=== PATIENT | female | born 1980 | race Caucasian/White ===

== ENCOUNTER 2019-08-14 11:07 | Emergency (ER) | payer BC, SELFPAY ==
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
[2019-08-14 12:46] VITALS: BP 125/78; TEMP 98; O2SAT 100
== END 2019-08-14 12:37 | disposition home or self-care (01) ==
LOC: ER 11:07
DX: S03.2XXA Dislocation of tooth, initial encounter (principal); W22.8XXA Striking against or struck by other objects, initial encounter; Y93.89 Activity, other specified; Y92.9 Unspecified place or not applicable; I10 Essential (primary) hypertension
CPT/HCPCS: 99282

== ENCOUNTER 2021-07-25 22:52 | Emergency (ER) | payer BC ==
--- OUTSIDE RECORDS SUMMARY | 2021-07-25 22:54 | XMS REPORT | Continuity of Care Document ---
:1980 [address] [facility] t Address [address] [place] [address] Care Team Providers Name Role Phone Unavailable Unavailable Unavailable Problems This patient has no known problems. Allergies, Adverse Reactions, Alerts This patient has no known allergies or adverse reactions. Medications This patient has no known medications. Procedures This patient has no known procedures. Encounters Start End Encounter Admission Attending Care Care Encounter Source Date/Time Date/Time Type Type Clinicians Facility Department ID 2020-07-04 2020-07-04 Outpatient [facility] [id number] [facility] 00:00:00 00:00:00 [facility]ra Aparicio ent Clinics Results This patient has no known results.
[2021-07-26 00:11] LABS: Absolute Lymphocytes (CBC) 0.8 K/uL (0.7-4.9); Basophils % 0.7 % (0-1.3); Hematocrit 40.1 % (36.0-45.0); Lymphocytes % 19.1 % (15.3-44.8); MPV 8.7 fL (7.6-11.3); Protime INR 0.97; RBC Red Blood Cell Count 4.86 M/uL (3.86-4.86)
[2021-07-26 00:25] LABS: ALT/SGPT 49 U/L (12-78); AST/SGOT 19 U/L (15-37); Albumin 3.8 g/dL (3.4-5.0); Alkaline Phosphatase 58 U/L (45-117); BUN Blood Urea Nitrogen 21 mg/dL (7-18); Bicarbonate 21 mmol/L (21-32); Bilirubin Direct 0.2 mg/dL (0-0.2); Bilirubin Total 0.4 mg/dL (0.2-1.0); Ferritin 53.7 ng/mL (8-388); Glucose Level 114 mg/dL (74-106); Magnesium 1.8 mg/dL (1.8-2.4); NT PRO-BNP 12 pg/mL (<125); Potassium 3.8 mmol/L (3.5-5.1); Sodium Level 136 mmol/L (136-145); Troponin (Emerg Dept Use Only) < 0.02 ng/mL (0.0-0.045)
[2021-07-26 00:26] LABS: C-Reactive Protein < 2.90 mg/L (<3.00)
[2021-07-26 00:34] LABS: Urine Blood Negative (Negative); Urine Glucose Negative (Negative); Urine Protein Trace (Negative); Urine Specific Gravity 1.025 (1.005-1.030); Urine pH 5.5 (5.0-7.0)
[2021-07-26] MEDS ORDERED: ALBUTEROL INHALER 60 PUFF/8 GM IH ONE (00:40)
[2021-07-26] MEDS ORDERED: ONDANSETRON 4 MG/2 ML VIAL ONE (00:40)
[2021-07-26 01:03] LABS: Urine Specific Gravity/Preg 1.025 (1.005-1.030)
[2021-07-26] MEDS ORDERED: METHYLPREDNISOLONE 40 MG INJ ONE (01:49)
[2021-07-26] MEDS ORDERED: ASPIRIN 81 MG CHEWABLE TABLET ONE (01:50)
[2021-07-26] MEDS ORDERED: NA CHLORIDE 0.9% 250 ML ONE (02:04)
[2021-07-26] MEDS ORDERED: CASIRIVIMAB/IMDEVIMAB 10 ML VIAL ONE (02:04)
[2021-07-26] MEDS ORDERED: NA CHLORIDE 0.9% 50 ML ONE (02:04)
--- NOTE | 2021-07-26 03:44 | ER ---
Nurse's Notes [facility] Name: Roula Conde Age: 40 yrs Sex: Female : 1980 Arrival Date: 07/25/2021 Time: 22:53 Bed 6 Private MD: Diagnosis: SARS-associated coronavirus as the cause of diseases classified elsewhere Presentation: 07/25 23:06 Chief complaint: Patient states: short of breath. Coronavirus screen: Vaccine status: da3 Patient reports being unvaccinated. Ebola Screen: No symptoms or risks identified at this time. Initial Sepsis Screen: Does the patient meet any 2 criteria? No. Patient's initial sepsis screen is negative. Risk Assessment: Do you want to hurt yourself or someone else? Patient reports no desire to harm self or others. Onset of symptoms was July 18, 2021. 23:06 Method Of Arrival: Ambulatory da3 23:06 Acuity: MARIA DEL CARMEN 4 da3 23:33 Initial Sepsis Screen: Does the patient have a suspected source of infection? No. as6 Patient's initial sepsis screen is negative. Triage Assessment: 23:09 General: Appears distressed, uncomfortable, Behavior is calm, cooperative. Pain: Denies da3 pain. Respiratory: Reports shortness of breath cough that is. 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 - Social history:: Smoking status: Patient reports the use of cigarette tobacco products, Patient/guardian denies using tobacco, the patient reports quitting approximately 5 years ago. Screenin:33 Abuse screen: Denies threats or abuse. Nutritional screening: No deficits noted. as6 Tuberculosis screening: No symptoms or risk factors identified. Fall Risk None identified. Assessment: 23:30 General: Appears in no apparent distress. uncomfortable, Behavior is anxious, restless. as6 Pain: Denies pain. Neuro: Level of Consciousness is awake, alert, obeys commands, Oriented to person, place, time, situation, Reports dizziness. Cardiovascular: Capillary refill < 3 seconds Patient's skin is warm and dry. Respiratory: Airway is patent Trachea midline Respiratory effort is even, unlabored, shallow, Respiratory pattern is regular, symmetrical, Breath sounds with wheezes bilaterally. in left posterior lower lobe and right posterior middle lobe. GI: Reports nausea. Derm: Skin is intact, is healthy with good turgor. 07/26 03:33 Reassessment: Patient appears in no apparent distress at this time. General: Behavior as6 is anxious. Vital Signs: 07/25 23:06 BP 119 / 89; Pulse 109; Resp 24; Temp 98.2; Pulse Ox 100% on R/A; Weight 83.91 kg; da3 Height 5 ft. 8 in. (172.72 cm); 23:32 BP 123 / 107; Pulse 93; Resp 11 S; Pulse Ox 97% on R/A; as6 07/26 00:35 BP 112 / 87; Pulse 97; Resp 20 S; Pulse Ox 100% on R/A; as6 02:37 BP 120 / 83; Pulse 83; Resp 18 S; Pulse Ox 100% on R/A; as6 03:33 BP 116 / 78; Pulse 83; Resp 16 S; Pulse Ox 99% on R/A; as6 04:37 BP 123 / 80; Pulse 84; Resp 18 S; Pulse Ox 98% on R/A; as6 07/25 23:06 Body Mass Index 28.13 (83.91 kg, 172.72 cm) da3 ED Course: 07/25 22:53 Patient arrived in ED. bp1 23:09 Triage completed. da3 23:18 Duke Flynn PA is PHCP. cp 23:18 Duke Paris MD is Attending Physician. cp 23:19 Philippe Fischer, AALIYAH is Primary Nurse. as6 23:30 Arm band placed on. as6 23:33 Placed in gown. Bed in low position. Call light in reach. Side rails up X2. Cardiac as6 monitor on. Pulse ox on. NIBP on. Warm blanket given. 07/26 00:01 COVID-19 (Coronavirus) Document "Date of Onset" if Symptomatic Sent. as6 00:30 Inserted saline lock: 20 gauge in right antecubital area, using aseptic technique. as6 Blood collected. 01:02 XRAY Chest (1 view) In Process Unspecified. EDMS 04:51 No provider procedures requiring assistance completed. IV discontinued, intact, as6 bleeding controlled, No redness/swelling at site. Pressure dressing applied. Administered Medications: 00:44 Drug: Zofran (Ondansetron) 4 mg Route: IVP; Site: right antecubital; as6 02:36 Follow up: Response: No adverse reaction as6 00:44 Drug: Albuterol HFA Inhaler 2 puffs Route: Inhalation; as6 02:36 Follow up: Response: No adverse reaction as6 02:00 Drug: Aspirin Chewable Tablet 324 mg Route: PO; as6 02:36 Follow up: Response: No adverse reaction as6 02:00 Drug: SOLU-Medrol (methylPrednisoLONE) 80 mg Route: IVP; Site: right antecubital; as6 02:36 Follow up: Response: No adverse reaction as6 02:36 Drug: Casirivimab-Imdevimab Dose Pack 120 mg/mL-120 mg/mL (EUA) 1 application Route: as6 IV; Rate: calculated rate; Site: right antecubital; 03:45 Follow up: Response: No adverse reaction; IV Status: Completed infusion; IV Intake: as6 250ml Intake: 03:45 IV: 250ml; Total: 250ml. as6 Outcome: 03:44 Discharge ordered by MD. cp 04:52 Discharged to home ambulatory. as6 04:52 Condition: stable 04:52 Discharge instructions given to patient, Instructed on discharge instructions, follow up and referral plans. medication usage, Demonstrated understanding of instructions, follow-up care, medications, Prescriptions given X 3. 04:52 Patient left the ED. as6 Signatures: Dispatcher [employer] EDMS Duke Flynn PA PA cp [place], Brittany bp1 Allan, David, RN RN da3 Philippe Fischer RN RN as6 Corrections: (The following items were deleted from the chart) 07/25 23:10 23:09 PMHx: Hypertension; da3 da3
--- NOTE | 2021-07-26 03:45 | EDPHYS ---
Physician Documentation [facility] Name: Roula Conde Age: 40 yrs Sex: Female : 1980 Arrival Date: 07/25/2021 Time: 22:53 Bed 6 Private MD: ED Physician Duke Paris HPI: 07/25 23:25 This 40 yrs old Female presents to ER via Ambulatory with complaints of Breathing cp Difficulty, Covid+. 23:25 The patient has shortness of breath at rest. Onset: The symptoms/episode began/occurred cp gradually, and became worse today. Duration: The symptoms are continuous, and are steadily getting worse. The patient's shortness of breath is aggravated by light activity, talking. Associated signs and symptoms: Pertinent positives: non-productive cough, Pertinent negatives: chest pain, fever, vomiting. Severity of symptoms: in the emergency department the symptoms are unchanged despite home interventions. 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 - Social history:: Smoking status: Patient reports the use of cigarette tobacco products, Patient/guardian denies using tobacco, the patient reports quitting approximately 5 years ago. ROS: 23:30 Constitutional: Negative for body aches, chills, fever, poor PO intake. cp 23:30 Eyes: Negative for injury, pain, redness, and discharge. cp 23:30 ENT: Negative for ear pain, sore throat, difficulty swallowing, difficulty handling secretions. 23:30 Cardiovascular: Negative for chest pain, edema. 23:30 Respiratory: Positive for cough, with no reported sputum, shortness of breath, at rest. Negative for wheezing. 23:30 Abdomen/GI: Negative for abdominal pain, vomiting, diarrhea, constipation. 23:30 Back: Negative for radiated pain. 23:30 Neuro: Negative for altered mental status, headache, weakness. 23:30 All other systems are negative. Exam: 23:35 Constitutional: The patient appears in no acute distress, alert, awake, cp non-diaphoretic, non-toxic, well developed, well nourished. 23:35 Head/Face: Normocephalic, atraumatic. cp 23:35 Eyes: Periorbital structures: appear normal, Conjunctiva: normal, no exudate, no injection, Sclera: no appreciated abnormality, Lids and lashes: appear normal, bilaterally. 23:35 ENT: External ear(s): are unremarkable, Nose: is normal, Mouth: Lips: moist, Oral mucosa: moist, Posterior pharynx: Airway: no evidence of obstruction, patent. 23:35 Neck: ROM/movement: is normal, is supple, without pain, no range of motions limitations, no meningismus. 23:35 Chest/axilla: Inspection: normal. 23:35 Cardiovascular: Rate: tachycardic, Rhythm: regular, Edema: is not appreciated, JVD: is not appreciated. 23:35 Respiratory: the patient does not display signs of respiratory distress, Respirations: shallow respirations, that is mild, Breath sounds: are clear throughout, no decreased breath sounds, no stridor, no wheezing. 23:35 Abdomen/GI: Exam negative for discomfort, distension, guarding, Inspection: abdomen appears normal. 23:35 Back: pain, is absent, ROM is normal. 23:35 Neuro: Orientation: to person, place \\T\\ time. Mentation: is normal, Motor: moves all fours, strength is normal, Sensation: is normal. 07/26 00:15 ECG was reviewed by the Attending Physician. cp Vital Signs: 07/25 23:06 BP 119 / 89; Pulse 109; Resp 24; Temp 98.2; Pulse Ox 100% on R/A; Weight 83.91 kg; da3 Height 5 ft. 8 in. (172.72 cm); 23:32 BP 123 / 107; Pulse 93; Resp 11 S; Pulse Ox 97% on R/A; as6 07/26 00:35 BP 112 / 87; Pulse 97; Resp 20 S; Pulse Ox 100% on R/A; as6 02:37 BP 120 / 83; Pulse 83; Resp 18 S; Pulse Ox 100% on R/A; as6 03:33 BP 116 / 78; Pulse 83; Resp 16 S; Pulse Ox 99% on R/A; as6 04:37 BP 123 / 80; Pulse 84; Resp 18 S; Pulse Ox 98% on R/A; as6 07/25 23:06 Body Mass Index 28.13 (83.91 kg, 172.72 cm) da3 MDM: 07/25 23:18 Patient medically screened. 07/26 00:00 Differential diagnosis: Bronchitis pneumonia, pulmonary edema, Pulmonary Embolism cp Sepsis. 03:25 Data reviewed: vital signs, nurses notes, lab test result(s), EKG, radiologic studies, cp plain films. 03:25 Test interpretation: by ED physician or midlevel provider: ECG, plain radiologic cp studies. Response to treatment: the patient's symptoms have markedly improved after treatment. 07/25 23:47 Order name: Basic Metabolic Panel cp 07/25 23:47 Order name: CBC with Diff; Complete Time: 00:42 cp 07/26 00:42 Interpretation: Normal except: WBC 4.20. 07/25 23:47 Order name: LFT's; Complete Time: 00:42 cp 07/25 23:47 Order name: Magnesium; Complete Time: 00:42 cp 07/25 23:47 Order name: NT PRO-BNP; Complete Time: 00:42 cp 07/25 23:47 Order name: PT-INR; Complete Time: 00:42 cp 07/25 23:47 Order name: Troponin (emerg Dept Use Only); Complete Time: 00:42 cp 07/26 03:16 Interpretation: Within normal limits: TROPED < 0.02. 07/25 23:47 Order name: COVID-19 (Coronavirus) Document "Date of Onset" if Symptomatic 07/25 23:47 Order name: CRP; Complete Time: 00:42 cp 07/25 23:47 Order name: Ferritin; Complete Time: 00:42 cp 07/25 23:48 Order name: Basic Metabolic Panel; Complete Time: 00:42 EDMS 07/26 00:42 Interpretation: Normal except: GLUC 114; BUN 21; GFR 67. cp 07/26 00:14 Order name: SARS-COV-2 RT PCR; Complete Time: 03:15 EDMS 07/26 03:15 Interpretation: Results reviewed. 07/26 00:33 Order name: Urine Dipstick-Ancillary; Complete Time: 00:42 EDMS 07/26 03:15 Interpretation: Normal except: UKET 2+; UPROT Trace. cp 07/26 00:43 Order name: Urine --Ancillary (enter results); Complete Time: 03:15 cs9 07/25 23:47 Order name: XRAY Chest (1 view) 07/25 23:47 Order name: EKG; Complete Time: 23:49 cp 07/25 23:47 Order name: Cardiac monitoring; Complete Time: 00:01 cp 07/25 23:47 Order name: EKG - Nurse/Tech; Complete Time: 00:14 cp 07/25 23:47 Order name: IV Saline Lock; Complete Time: 00:01 cp 07/25 23:47 Order name: Labs collected and sent; Complete Time: 00:01 cp 07/25 23:47 Order name: O2 Per Protocol; Complete Time: 00:01 cp 07/25 23:47 Order name: O2 Sat Monitoring; Complete Time: 00:01 cp 07/25 23:47 Order name: Urine Dipstick-Ancillary (obtain specimen); Complete Time: 00:34 cp 07/25 23:47 Order name: Urine Test (obtain specimen); Complete Time: 00:34 cp EC:15 Rate is 84 beats/min. Rhythm is regular. [place] interval is normal. QRS interval is normal. cp QT interval is normal. T waves are Inverted in lead aVR. Interpreted by me. Reviewed by me. Administered Medications: 00:44 Drug: Zofran (Ondansetron) 4 mg Route: IVP; Site: right antecubital; as6 02:36 Follow up: Response: No adverse reaction as6 00:44 Drug: Albuterol HFA Inhaler 2 puffs Route: Inhalation; as6 02:36 Follow up: Response: No adverse reaction as6 02:00 Drug: Aspirin Chewable Tablet 324 mg Route: PO; as6 02:36 Follow up: Response: No adverse reaction as6 02:00 Drug: SOLU-Medrol (methylPrednisoLONE) 80 mg Route: IVP; Site: right antecubital; as6 02:36 Follow up: Response: No adverse reaction as6 02:36 Drug: Casirivimab-Imdevimab Dose Pack 120 mg/mL-120 mg/mL (EUA) 1 application Route: as6 IV; Rate: calculated rate; Site: right antecubital; 03:45 Follow up: Response: No adverse reaction; IV Status: Completed infusion; IV Intake: as6 250ml Disposition Summary: 07/26/21 03:44 Discharge Ordered Location: Home cp Problem: new cp Symptoms: have improved cp Condition: Stable cp Diagnosis - SARS-associated coronavirus as the cause of diseases classified elsewhere cp Followup: cp - With: Private Physician - When: 2 - 3 days - Reason: Recheck today's complaints Discharge Instructions: - Discharge Summary Sheet cp - COVID-19 cp - Things to Know about the COVID-19 Pandemic - [facility] cp - 10 Things You Can Do to Manage Your COVID-19 Symptoms at Home - [facility] cp - COVID-19: Quarantine vs. Isolation - [facility] cp - Prevent the Spread of COVID-19 if You Are Sick - [facility] cp Forms: - Medication Reconciliation Form cp - Thank You Letter cp - Antibiotic Education cp - Prescription Opioid Use cp Prescriptions: - albuterol sulfate 90 mcg/actuation Inhalation HFA aerosol inhaler - inhale 1 puff by INHALATION route every 4-6 hours; 1 Inhaler; Refills: 0, cp Product Selection Permitted - Tessalon Perles 100 mg Oral Capsule - take 2 capsule by ORAL route every 8 hours As needed; 30 capsule; Refills: 0, cp Product Selection Permitted - Prednisone 20 mg Oral Tablet - take 2 tablets by ORAL route once daily for 5 days; 10 tablet; Refills: 0, cp Product Selection Permitted Addendum: 07/28/2021 11:12 Co-signature as Attending Physician, Duke Paris MD I agree with the assessment and c martinez plan of care. Signatures: Dispatcher [employer] EDDuke Salgado MD MD cha Page, Corey, PA PA Nathan Lanza RN RN da3 Philippe Fischer RN RN as6 Corrections: (The following items were deleted from the chart) 07/25 23:10 23:09 PMHx: Hypertension; da3 da3
[2021-07-26 04:59] VITALS: TEMP 98.2
[2021-07-26 05:07] VITALS: BP 123/80; O2SAT 98
--- NOTE | 2021-07-26 08:05 | RAD REPORT ---
EXAM DESCRIPTION: RAD - Chest Single View - 07/26/2021 1:02 am CLINICAL HISTORY: SOB COMPARISON: No comparisons FINDINGS: Lines: None. Lungs: No evidence of edema or pneumonia. Pleural: No significant pleural effusions or pneumothorax. Cardiac: The heart size is within normal limits. Bones: No acute fractures. Other: IMPRESSION: No acute cardiopulmonary disease.
== END 2021-07-26 04:52 | disposition home or self-care (01) ==
LOC: ER 22:52
DX: U07.1 COVID-19 (principal); Z91.041 Radiographic dye allergy status
CPT/HCPCS: 96365; 93005; 85025; 80048; 36415; 83735; 81025; 85610; 80076; 81003; 84484; 82728; 83880; 86140; 71045; 96375; 99285; U0003; J7050; J2405; J2920; M0243

== ENCOUNTER 2023-06-18 12:50 | Emergency (ER) | payer BC ==
--- OUTSIDE RECORDS SUMMARY | 2023-06-18 12:58 | XMS REPORT | Continuity of Care Document ---
:1980 Author Organization [facility] t Address [address] [facility] [address] [place] [address] Care Team Providers Name Role Phone Pcp, Patient Does Not Have A Primary Care Physician [id number] BARAK LOMBARDO Attending Clinician Unavailable Barak Lombardo MD Attending Clinician YEN LOVE Attending Clinician Unavailable Yen Love MD Attending Clinician Carmen Hale MD Attending Clinician Doctor Unassigned, [place] Attending Clinician Unavailable RADIOLOGY Attending Clinician Unavailable Radiology Attending Clinician Unavailable BARAK LOMBARDO Admitting Clinician Unavailable Barak Lombardo MD Admitting Clinician YEN LOVE Admitting Clinician Unavailable Payers Payer Name Policy Type Policy Number Effective Date Expiration Date S ource [employer] [place] [id number] 2020 00:00:00 [employer] and C1 [id number] Common S pirit [facility] Problems Condition Condition Condition Status Onset Resolution Last Treating Co mments Source Name Details Category Date Date Treatment Clinician Date Localized Localized Disease Active Uni vers swelling, swelling, 4-24 ity of mass, or mass, or 00:00: [place] lump of lump of 00 Medical left lower left lower Br anch extremity extremity No known No known Disease Unive rs active active ity of problems problems [facility] Branch Allergies, Adverse Reactions, Alerts Allergy Allergy Status Severity Reaction(s) Onset Inactive Treating Comm ents Source Name Type Date Date Clinician [place] - Propensi Active Intraven ty to 5-23 ous adverse 00:00: reaction 00 to drug Iodine Propensi Active ty to 7-29 adverse 00:00: reaction 00 to drug NO KNOWN Drug Active Univers ALLERGIE Class ity of S [facility] Social History Social Habit Start Date Stop Date Quantity Comments Source History of Passive smoker University of tobacco use [facility] Alcohol intake 2023-01-05 2023-01-05 Ex-drinker [facility] 00:00:00 00:00:00 (finding) [facility] Exposure to 2022-12-19 2022-12-29 Not sure [facility] SARS-CoV-2 00:00:00 08:47:00 [facility] (event) [address] Sex Assigned At [birth year] Universit y of 00:00:00 00:00:00 [facility] Smoking Status Start Date Stop Date Source Tobacco smoking [facility] xa consumption unknown Medical Bran ch Ex-smoker 2022-12-21 00:00:00 2022-12-21 [place] [facility] [place] 00:00:00 [facility] Never Smoker [facility] nter Medications Ordered Filled Start Stop Current Ordering Indication Dosage Frequency Signature Comments Components Source Medication Medication Date Date Medication? Clinician (SIG) Name Name fabiano Yes 5000U Take 5,000 Univers rol, 6-05 Units by ity of vitamin D2, 08:34[place] (VITAMIN D2 11 Medical ORAL) Branch loratadine Yes Take by Univ ers (CLARITIN 6-05 mouth. ity of ORAL) 08:34: [address] ergocalcife Yes 5000U Take 5,000 Univers rol, 6-05 Units by ity of vitamin D2, 08:34: [place] (VITAMIN D2 11 Medical ORAL) Branch loratadine Yes Take by Univ ers (CLARITIN 6-05 mouth. ity of ORAL) 08:34: [address] lactated Yes 1000mL at 100 Unive rs ringers IV 5-22 mL/hr, ity of infusion 14:00: 1,000 [place] 1[place]000 [place] 00 IV Medical Infusion, Branch CONTINUOUS , Starting on Wed01/04/23 at 0900, Until Discontinu ed, Routine, PACU lactated 2022-0 2023- No 1000mL at 100 Univ ers ringers IV 01-04 05-22 mL/hr, ity of infusion 14:00: 17:24 1,000 mL, [place] 1,000 mL 00 :49 IV Medical Infusion, Branch CONTINUOUS , Starting on Wed01/04/23 at 0900, Until Wed01/04/23 at 1224, Routine, PACU HYDROmorphO 2022-0 Yes .2mg 0.2 mg, Uni vers ne - Slow IV ity of (DILAUDID) 13:46: Push, [place] injection 22 Q5MIN PRN, Medi julianna 0.2 mg 10 doses, Branch Starting on Wed01/04/23 at 0846, Until Discontinu ed, Routine, Pain (scale 7-10), PACU
Us e approved by (Faculty): PACU USE -ANESTHESI A SERVICE-HY DROMORPHON E INJECTIONS FENTanyl PF 2022-0 Yes 25ug 25 mcg, Uni vers (SUBLIMAZE 01-04 Slow IV ity of (PF)) 13:46: Push, [place] injection 22 Q5MIN PRN, Medi julianna 25 mcg 4 doses, Branch Starting on Wed01/04/23 at 0846, Until Discontinu ed, Routine, Pain (scale 4-6), PACU ondansetron 2022-0 Yes 4mg 4 mg, Slow Univers (ZOFRAN 01-04 IV Push, ity of (PF)) 13:46: PRN, 1 [place] injection 4 22 dose, Medical mg Starting Branch on Wed01/04/23 at 0846, Until Discontinu ed, Routine, Nausea and Vomiting (N/V), PACU HYDROmorphO 2022-0 2022- No .2mg 0.2 mg, Un lorena ne 01-04 05-22 Slow IV ity of (DILAUDID) 13:46: 17:24 Push, [place] injection 22 :49 Q5MIN PRN, Medi julianna 0.2 mg 10 doses, Branch Starting on Wed01/04/23 at 0846, Until Wed01/04/23 at 1224, Routine, Pain (scale 7-10), PACU
Us e approved by (Faculty): PACU USE -ANESTHESI A SERVICE-HY DROMORPHON E INJECTIONS FENTanyl PF 2022- No 25ug 25 mcg, Un lorena (SUBLIMAZE 01-04 Slow IV ity o f (PF)) 13:46: 17:24 Push, [place] injection 22 :49 Q5MIN PRN, Medi julianna 25 mcg 4 doses, Branch Starting on Wed01/04/23 at 0846, Until Wed01/04/23 at 1224, Routine, Pain (scale 4-6), PACU ondansetron 2022- No 4mg 4 mg, Slow Univers (ZOFRAN 01-04 IV Push, ity of (PF)) 13:46: 17:24 PRN, 1 [place] injection 4 22 :49 dose, Medical mg Starting Branch on Wed01/04/23 at 0846, Until Wed01/04/23 at 1224, Routine, Nausea and Vomiting (N/V), PACU bupivacaine 2022- No PRN, Unive rs (preserv 01-04 Starting ity of free) 13:10: 13:46 on Wed [place] (SENSORCAIN 00 :48 01/04/23 at Nd dical E MPF) 0.25 0810, Branch % (2.5 Until Mon mg/mL) 01/04/23 at injection 0846, Routine, Intra-op sodium 2022- No PRN, Univers chloride 01-04 Starting ity of 0.9 % 13:10: 13:46 on Wed [place] irrigation 00 :48 01/04/23 at Med ical solution 0810, Branch Until Wed01/04/23 at 0846, Intra-op lactated 2022- No 1000mL at 42 Unive rs ringers IV 01-04- mL/hr, ity of infusion 12:30: 12:30 1,000 mL, [place] 1,000 mL 00 :00 IV Medical Infusion, Branch ONCE, 1 dose, On Wed01/04/23 at 0730, Routine, DSU Pre-op lactated 2022- No 1000mL at 42 Unive rs ringers IV 01-04 mL/hr, ity of infusion 12:30: 12:30 1,000 mL, [place] 1,000 mL 00 :00 IV Medical Infusion, Branch ONCE, 1 dose, On 01/04/23 at 0730, Routine, DSU Pre-op ergocalcife Yes 5000U Take 5,000 Univers rol, 5-22 Units by ity of vitamin D2, 10:24: [place] (VITAMIN D2 48 Medical ORAL) Branch loratadine Yes Take by Univ ers (CLARITIN 5-22 mouth. ity of ORAL) 10:24: [address] ergocalcife Yes 5000U Take 5,000 Univers rol, 5-22 Units by ity of vitamin D2, 10:24: [place] (VITAMIN D2 48 Medical ORAL) Branch loratadine Yes Take by Univ ers (CLARITIN 5-22 mouth. ity of ORAL) 10:24: [address] ergocalcife Yes 5000U Take 5,000 Univers rol, 5-22 Units by ity of vitamin D2, 10:24: [place] (VITAMIN D2 48 Medical ORAL) Branch loratadine Yes Take by Univ ers (CLARITIN 5-22 mouth. ity of ORAL) 10:24: [address] ergocalcife Yes 5000U Take 5,000 Univers rol, 5-22 Units by ity of vitamin D2, 10:24: [place] (VITAMIN D2 48 Medical ORAL) Branch loratadine Yes Take by Univ ers (CLARITIN 5-22 mouth. ity of ORAL) 10:24: [address] ergocalcife Yes 5000U Take 5,000 Univers rol, 5-22 Units by ity of vitamin D2, 10:24: [place] (VITAMIN D2 48 Medical ORAL) Branch loratadine Yes Take by Univ ers (CLARITIN 5-22 mouth. ity of ORAL) 10:24: [address] HYDROcodone 2022- No 4647 1{tbl} Take 1 U nivers -acetaminop 5-22 05-30 tablet by it y of hen (NORCO) 00:00: 04:59 [place] 5-325 mg 00 :00 every 6 Medical tablet (six) Branch hours as needed for Pain (scale 7-10) for up to 7 days. Indication s: acute pain HYDROcodone 2022- No 4647 1{tbl} Take 1 U nivers -acetaminop 5-22 05-30 tablet by it y of hen ([employer]) 00:00: 04:59 mouth [place] 5-325 mg 00 :00 every 6 Medical tablet (six) Branch hours as needed for Pain (scale 7-10) for up to 7 days. Indication s: acute pain HYDROcodone 2022- No 4647 1{tbl} Take 1 U nivers -acetaminop 5-22 05-30 tablet by it y of hen ([employer]) 00:00: 04:59 mouth [place] 5-325 mg 00 :00 every 6 Medical tablet (six) Branch hours as needed for Pain (scale 7-10) for up to 7 days. Indication s: acute pain HYDROcodone 2022- No 4647 1{tbl} Take 1 U nivers -acetaminop 5-22 05-30 tablet by it y of hen ([employer]) 00:00: 04:59 mouth [place] 5-325 mg 00 :00 every 6 Medical tablet (six) Branch hours as needed for Pain (scale 7-10) for up to 7 days. Indication s: acute pain HYDROcodone 2022- No 4647 1{tbl} Take 1 U nivers -acetaminop 5-22 05-30 tablet by it y of hen ([employer]) 00:00: 04:59 mouth [place] 5-325 mg 00 :00 every 6 Medical tablet (six) Branch hours as needed for Pain (scale 7-10) for up to 7 days. Indication s: acute pain ergocalcife Yes 5000U Take 5,000 Univers rol, 5-16 Units by ity of vitamin D2, 08:36: [place] (VITAMIN D2 57 Medical ORAL) Branch loratadine Yes Take by Univ ers (CLARITIN 5-16 mouth. ity of ORAL) 08:36: [place] 57 Medical Branch gadobenate 2022- No [id number] .2mL/kg 17.7 mL Univers dimeglumine 12-22- (0.2 mL/kg i ty of (MULTIHANCE 22:30: 22:15 ?88.5 kg), [place] -20 mL) 00 :00 Intravenou Medica l injection s, ONCE, 1 Bran ch 17.7 mL dose, On Wed12/22/22 at 1730, Routine ergocalcife Yes 5000U Take 5,000 Univers rol, 5-08 Units by ity of vitamin D2, 10:32: mouth. [facility] (VITAMIN D2 19 Medical ORAL) Branch loratadine Yes Take by [facility] ers (CLARITIN 5-08 mouth. ity of ORAL) 10:32: [address] ergocalcife Yes 5000U Take 5,000 Univers rol, 5-08 Units by ity of vitamin D2, 10:32: mouth. [facility] (VITAMIN D2 19 Medical ORAL) Branch loratadine Yes Take by [facility] ers (CLARITIN 5-08 mouth. ity of ORAL) 10:32: [address] No known No No known [facility] medications 09-07 medication it y of 09:20: s [address] predniSONE Yes TAKE ONE Uni vers 50 mg 1-03 (1) ity of tablet 00:00: TABLET(S) 00 BY MOUTH Medical AT 13 Branch HOURS, 1 TAB AT 7 HOURS AND 1 TAB AT 1 HOUR BEFORE CONTRAST MEDIA INJECTION. predniSONE Yes TAKE ONE Uni vers 50 mg 1-03 (1) ity of tablet 00:00: TABLET(S) 00 BY MOUTH Medical AT 13 Branch HOURS, 1 TAB AT 7 HOURS AND 1 TAB AT 1 HOUR BEFORE CONTRAST MEDIA INJECTION. predniSONE Yes TAKE ONE Uni vers 50 mg 1-03 (1) ity of tablet 00:00: TABLET(S) 00 BY MOUTH Medical AT 13 Branch HOURS, 1 TAB AT 7 HOURS AND 1 TAB AT 1 HOUR BEFORE CONTRAST MEDIA INJECTION. predniSONE Yes TAKE ONE Uni vers 50 mg 1-03 (1) ity of tablet 00:00: TABLET(S) [place] 00 BY MOUTH Medical AT 13 Branch HOURS, 1 TAB AT 7 HOURS AND 1 TAB AT 1 HOUR BEFORE CONTRAST MEDIA INJECTION. predniSONE Yes TAKE ONE Uni vers 50 mg 1-03 (1) ity of tablet 00:00: TABLET(S) [place] 00 BY MOUTH Medical AT 13 Branch HOURS, 1 TAB AT 7 HOURS AND 1 TAB AT 1 HOUR BEFORE CONTRAST MEDIA INJECTION. predniSONE 2023-0 Yes TAKE ONE Uni vers 50 mg 1-03 (1) ity of tablet 00:00: TABLET(S) [place] 00 BY MOUTH Medical AT 13 Branch HOURS, 1 TAB AT 7 HOURS AND 1 TAB AT 1 HOUR BEFORE CONTRAST MEDIA INJECTION. predniSONE 2022-0 Yes TAKE ONE Uni vers 50 mg 1-03 (1) ity of tablet 00:00: TABLET(S) [place] 00 BY MOUTH Medical AT 13 Branch HOURS, 1 TAB AT 7 HOURS AND 1 TAB AT 1 HOUR BEFORE CONTRAST MEDIA INJECTION. predniSONE 3-0 Yes TAKE ONE Uni vers 50 mg 1-03 (1) ity of tablet 00:00: TABLET(S) [place] 00 BY MOUTH Medical AT 13 Branch HOURS, 1 TAB AT 7 HOURS AND 1 TAB AT 1 HOUR BEFORE CONTRAST MEDIA INJECTION. predniSONE 2022-0 Yes TAKE ONE Uni vers 50 mg 1-03 (1) ity of tablet 00:00: TABLET(S) [place] 00 BY MOUTH Medical AT 13 Branch HOURS, 1 TAB AT 7 HOURS AND 1 TAB AT 1 HOUR BEFORE CONTRAST MEDIA INJECTION. predniSONE 3-0 Yes TAKE ONE Uni vers 50 mg 1-03 (1) ity of tablet 00:00: TABLET(S) [place] 00 BY MOUTH Medical AT 13 Branch HOURS, 1 TAB AT 7 HOURS AND 1 TAB AT 1 HOUR BEFORE CONTRAST MEDIA INJECTION. predniSONE 3-0 Yes TAKE ONE Uni vers 50 mg 1-03 (1) ity of tablet 00:00: TABLET(S) [place] 00 BY MOUTH Medical AT 13 Branch HOURS, 1 TAB AT 7 HOURS AND 1 TAB AT 1 HOUR BEFORE CONTRAST MEDIA INJECTION. predniSONE 3-0 Yes TAKE ONE Uni vers 50 mg 1-03 (1) ity of tablet 00:00: TABLET(S) [place] 00 BY MOUTH Medical AT 13 Branch HOURS, 1 TAB AT 7 HOURS AND 1 TAB AT 1 HOUR BEFORE CONTRAST MEDIA INJECTION. predniSONE 2023-0 Yes TAKE ONE Uni vers 50 mg 1-03 (1) ity of tablet 00:00: TABLET(S) [place] 00 BY MOUTH Medical AT 13 Branch HOURS, 1 TAB AT 7 HOURS AND 1 TAB AT 1 HOUR BEFORE CONTRAST MEDIA INJECTION. predniSONE 2023-0 Yes TAKE ONE Uni vers 50 mg 1-03 (1) ity of tablet 00:00: TABLET(S) [place] 00 BY MOUTH Medical AT 13 Branch HOURS, 1 TAB AT 7 HOURS AND 1 TAB AT 1 HOUR BEFORE CONTRAST MEDIA INJECTION. predniSONE 3-0 Yes TAKE ONE Uni vers 50 mg 1-03 (1) ity of tablet 00:00: TABLET(S) [place] 00 BY MOUTH Medical AT 13 Branch HOURS, 1 TAB AT 7 HOURS AND 1 TAB AT 1 HOUR BEFORE CONTRAST MEDIA INJECTION. predniSONE 2022-0 Yes TAKE ONE Uni vers 50 mg 1-03 (1) ity of tablet 00:00: TABLET(S) [place] 00 BY MOUTH Medical AT 13 Branch HOURS, 1 TAB AT 7 HOURS AND 1 TAB AT 1 HOUR BEFORE CONTRAST MEDIA INJECTION. predniSONE 2022-0 Yes TAKE ONE Uni vers 50 mg 1-03 (1) ity of tablet 00:00: TABLET(S) [place] 00 BY MOUTH Medical AT 13 Branch HOURS, 1 TAB AT 7 HOURS AND 1 TAB AT 1 HOUR BEFORE CONTRAST MEDIA INJECTION. predniSONE 2022-0 Yes TAKE ONE Uni vers 50 mg 1-03 (1) ity of tablet 00:00: TABLET(S) [place] 00 BY MOUTH Medical AT 13 Branch HOURS, 1 TAB AT 7 HOURS AND 1 TAB AT 1 HOUR BEFORE CONTRAST MEDIA INJECTION. predniSONE 2022-0 Yes TAKE ONE Uni vers 50 mg 1-03 (1) ity of tablet 00:00: TABLET(S) [place] 00 BY MOUTH Medical AT 13 Branch HOURS, 1 TAB AT 7 HOURS AND 1 TAB AT 1 HOUR BEFORE CONTRAST MEDIA INJECTION. predniSONE 2022-0 Yes TAKE ONE Uni vers 50 mg 1-03 (1) ity of tablet 00:00: TABLET(S) [place] 00 BY MOUTH Medical AT 13 Branch HOURS, 1 TAB AT 7 HOURS AND 1 TAB AT 1 HOUR BEFORE CONTRAST MEDIA INJECTION. predniSONE 2022-0 Yes TAKE ONE Uni vers 50 mg 1-03 (1) ity of tablet 00:00: TABLET(S) [place] 00 BY MOUTH Medical AT 13 Branch HOURS, 1 TAB AT 7 HOURS AND 1 TAB AT 1 HOUR BEFORE CONTRAST MEDIA INJECTION. predniSONE 2022-0 Yes TAKE ONE Uni vers 50 mg 1-03 (1) ity of tablet 00:00: TABLET(S) [place] 00 BY MOUTH Medical AT 13 Branch HOURS, 1 TAB AT 7 HOURS AND 1 TAB AT 1 HOUR BEFORE CONTRAST MEDIA INJECTION. predniSONE 2022-0 Yes TAKE ONE Uni vers 50 mg 1-03 (1) ity of tablet 00:00: TABLET(S) [place] 00 BY MOUTH Medical AT 13 Branch HOURS, 1 TAB AT 7 HOURS AND 1 TAB AT 1 HOUR BEFORE CONTRAST MEDIA INJECTION. predniSONE Yes TAKE ONE Uni vers 50 mg 1-03 (1) ity of tablet 00:00: TABLET(S) [place] 00 BY MOUTH Medical AT 13 Branch HOURS, 1 TAB AT 7 HOURS AND 1 TAB AT 1 HOUR BEFORE CONTRAST MEDIA INJECTION. predniSONE Yes TAKE ONE Uni vers 50 mg 1-03 (1) ity of tablet 00:00: TABLET(S) [place] 00 BY MOUTH Medical AT 13 Branch HOURS, 1 TAB AT 7 HOURS AND 1 TAB AT 1 HOUR BEFORE CONTRAST MEDIA INJECTION. predniSONE Yes TAKE ONE Uni vers 50 mg 1-03 (1) ity of tablet 00:00: TABLET(S) 00 BY MOUTH Medical AT 13 Branch HOURS, 1 TAB AT 7 HOURS AND 1 TAB AT 1 HOUR BEFORE CONTRAST MEDIA INJECTION. predniSONE Yes TAKE ONE Uni vers 50 mg -03 (1) ity of tablet 00:00: TABLET(S) 00 BY MOUTH Medical AT 13 Branch HOURS, 1 TAB AT 7 HOURS AND 1 TAB AT 1 HOUR BEFORE CONTRAST MEDIA INJECTION. predniSONE 2022- No TAKE ONE Un lorena 50 mg 08-18 (1) ity of tablet 00:00: 00:00 TABLET(S) [place] 00 :00 BY MOUTH Medical AT 13 Branch HOURS, 1 TAB AT 7 HOURS AND 1 TAB AT 1 HOUR BEFORE CONTRAST MEDIA INJECTION. predniSONE 2022- No TAKE ONE Un lorena 50 mg 08-18 (1) ity of tablet 00:00: 00:00 TABLET(S) [place] 00 :00 BY MOUTH Medical AT 13 Branch HOURS, 1 TAB AT 7 HOURS AND 1 TAB AT 1 HOUR BEFORE CONTRAST MEDIA INJECTION. lisinopriL 2021-08 Yes 20mg Take 20 mg U nivers 20 mg 2-19 by mouth ity of tablet 00:00: in the [place] morning. Medical Branch lisinopriL 2021-08 Yes 20mg Take 20 mg U nivers 20 mg 2-19 by mouth ity of tablet 00:00: in the [place] morning. Medical Branch lisinopriL 2021-08 Yes 20mg Take 20 mg U nivers 20 mg 2-19 by mouth ity of tablet 00:00: in the [place] 00 morning. Medical Branch lisinopriL 2-1 Yes 20mg Take 20 mg U nivers 20 mg 2-19 by mouth ity of tablet 00:00: in the [place] 00 morning. Medical Branch lisinopriL 2-1 Yes 20mg Take 20 mg U nivers 20 mg 2-19 by mouth ity of tablet 00:00: in the [place] 00 morning. Medical Branch lisinopriL 2-1 Yes 20mg Take 20 mg U nivers 20 mg 2-19 by mouth ity of tablet 00:00: in the [place] 00 morning. Medical Branch lisinopriL 2-1 Yes 20mg Take 20 mg U nivers 20 mg 2-19 by mouth ity of tablet 00:00: in the [place] morning. Medical Branch lisinopriL 2-1 Yes 20mg Take 20 mg U nivers 20 mg 2-19 by mouth ity of tablet 00:00: in the [place] 00 morning. Medical Branch lisinopriL 2-1 Yes 20mg Take 20 mg U nivers 20 mg 2-19 by mouth ity of tablet 00:00: in the [place] 00 morning. Medical Branch lisinopriL 2-1 Yes 20mg Take 20 mg U nivers 20 mg 2-19 by mouth ity of tablet 00:00: in the [place] 00 morning. Medical Branch lisinopriL 2-1 Yes 20mg Take 20 mg U nivers 20 mg 2-19 by mouth ity of tablet 00:00: in the [place] 00 morning. Medical Branch lisinopriL 2-1 Yes 20mg Take 20 mg U nivers 20 mg 2-19 by mouth ity of tablet 00:00: in the [place] 00 morning. Medical Branch lisinopriL 2-1 Yes 20mg Take 1 Unive rs 20 mg 2-19 tablet by ity of tablet 00:00: mouth at [place] [address] bedtime. Medical Branch lisinopriL 2-1 Yes 20mg Take 1 Unive rs 20 mg 2-19 tablet by ity of tablet 00:00: mouth at [place] [address] bedtime. Medical Branch lisinopriL 2-1 Yes 20mg Take 1 Unive rs 20 mg 2-19 tablet by ity of tablet 00:00: mouth at [place] [address] bedtime. Medical Branch lisinopriL 2021- Yes 20mg Take 1 Unive rs 20 mg 2-19 tablet by ity of tablet 00:00: mouth at [place] [address] bedtime. Medical Branch lisinopriL 2021-08 Yes 20mg Take 1 Unive rs 20 mg 2-19 tablet by ity of tablet 00:00: mouth at [place] [address] bedtime. Medical Branch lisinopriL 2021-08 Yes 20mg Take 1 Unive rs 20 mg 2-19 tablet by ity of tablet 00:00: mouth at [place] [address] bedtime. Medical Branch lisinopriL 2021-08 Yes 20mg Take 1 Unive rs 20 mg 2-19 tablet by ity of tablet 00:00: mouth at [place] [address] bedtime. Medical Branch lisinopriL 2021-08 Yes 20mg Take 1 Unive rs 20 mg 2-19 tablet by ity of tablet 00:00: mouth at [place] [address] bedtime. Medical Branch lisinopriL 2021-08 Yes 20mg Take 1 Unive rs 20 mg 2-19 tablet by ity of tablet 00:00: mouth at [place] [address] bedtime. Medical Branch lisinopriL 2021-08 Yes 20mg Take 1 Unive rs 20 mg 2-19 tablet by ity of tablet 00:00: mouth at [place] [address] bedtime. Medical Branch lisinopriL 2021- Yes 20mg Take 20 mg U nivers 20 mg 2-19 by mouth ity of tablet 00:00: in the [place] [address] morning. Medical Branch lisinopriL 2021-1 Yes 20mg Take 20 mg U nivers 20 mg 2-19 by mouth ity of tablet 00:00: in the [place] morning. Medical Branch lisinopriL 2021-1 Yes 20mg Take 20 mg U nivers 20 mg 2-19 by mouth ity of tablet 00:00: in the [place] 00 morning. Medical Branch lisinopriL 2021-1 Yes 20mg Take 20 mg U nivers 20 mg 2-19 by mouth ity of tablet 00:00: in the [place] 00 morning. Medical Branch lisinopriL 2021-1 Yes 20mg Take 20 mg U nivers 20 mg 2-19 by mouth ity of tablet 00:00: in the [place] [address] morning. Medical Branch lisinopriL 2021-1 Yes 20mg Take 20 mg U nivers 20 mg 2-19 by mouth ity of tablet 00:00: in the [place] 00 morning. Medical Branch lisinopriL 2021-08 Yes 20mg Take 20 mg U nivers 20 mg 2-19 by mouth ity of tablet 00:00: in the [place] 00 morning. Medical Branch lisinopriL 2021-08 Yes 20mg Take 20 mg U nivers 20 mg 2-19 by mouth ity of tablet 00:00: in the [place] morning. Medical Branch lisinopriL 2021-08 Yes 20mg Take 20 mg U nivers 20 mg 2-19 by mouth ity of tablet 00:00: in the [place] morning. Medical Branch lisinopriL 2021-08 Yes 20mg Take 20 mg U nivers 20 mg 2-19 by mouth ity of tablet 00:00: in the [place] morning. Medical Branch lisinopriL 2021-08 Yes 20mg Take 20 mg U nivers 20 mg 2-19 by mouth ity of tablet 00:00: in the [place] morning. Medical Branch lisinopriL 2021-08 Yes 20mg Take 20 mg U nivers 20 mg 2-19 by mouth ity of tablet 00:00: in the [place] morning. Medical Branch TAKE 1 2021-08 No TABLET 2-14 DAILY. 00:00: 00 Dose 2021-08 No Unknown 2-14 00:00: 00 METHYLPREDN 2021-08 No ISOLONE 4 2-14 MG TBPK 00:00: 00 TAKE 10 2021-08 No ML(S) BY 2-14 MOUTH EVERY 00:00: 6 TO 8 00 HOURS NEEDED. Dose 2021-08 No Unknown 2-14 00:00: 00 TAKE TWO 2021-08 No (2) 2-14 CAPSULE(S) 00:00: BY MOUTH 00 EVERY EIGHT HOURS NEEDED FOR COUGH AND CONGESTION. AMOX/K CLAV 2021-08 No [id number] 2-14 00:00: 00 TAKE ONE 2021-08 No (1) TABLET 2-14 BY MOUTH 00:00: DAILY. 00 Dose 2021-08 No Unknown 2-14 00:00: 00 INHALE ONE 2021-08 No (1) PUFF BY 2-14 MOUTH EVERY 00:00: 4-6 HOURS. 00 Dose 2021-08 No Unknown 2-14 00:00: 00 Dose 2021-08 No Unknown 2-14 00:00: 00 TAKE ONE 2021-08 No (1) 2-14 TABLET(S) 00:00: BY MOUTH 00 EVERY TWELVE HOURS. TAKE TWO 2021-08 No (2) 2-14 TABLET(S) 00:00: BY MOUTH 00 ONCE A DAY FOR 5 DAYS. TAKE BY 2021-08 No MOUTH 2-14 DIRECTED ON 00:00: PACKAGING. 00 TAKE 1 2021-08 No TABLET 2-14 DAILY. 00:00: 00 Dose 2021-08 No Unknown 2-14 00:00: 00 METHYLPREDN 2021-08 No ISOLONE 4 2-14 MG TBPK 00:00: 00 TAKE 10 2021-08 No ML(S) BY 2-14 MOUTH EVERY 00:00: 6 TO 8 00 HOURS NEEDED. Dose 2021-08 No Unknown 2-14 00:00: 00 TAKE TWO 2021-08 No (2) 2-14 CAPSULE(S) 00:00: BY MOUTH 00 EVERY EIGHT HOURS NEEDED FOR COUGH AND CONGESTION. AMOX/K CLAV 2021-08 No [id number] 2-14 00:00: 00 TAKE ONE 2021-08 No (1) TABLET 2-14 BY MOUTH 00:00: DAILY. 00 Dose 2021-08 No Unknown 2-14 00:00: 00 INHALE ONE 2021-08 No (1) PUFF BY 2-14 MOUTH EVERY 00:00: 4-6 HOURS. 00 Dose 2021-08 No Unknown 2-14 00:00: 00 Dose 2021-08 No Unknown 2-14 00:00: 00 TAKE ONE 2021-08 No (1) 2-14 TABLET(S) 00:00: BY MOUTH 00 EVERY TWELVE HOURS. TAKE TWO 2021-08 No (2) 2-14 TABLET(S) 00:00: BY MOUTH 00 ONCE A DAY FOR 5 DAYS. TAKE BY 2021-08 No MOUTH 2-14 DIRECTED ON 00:00: PACKAGING. 00 Dose No Unknown 9-06 00:00: 00 TAKE ONE No (1) 9-06 TABLET(S) 00:00: BY MOUTH 00 ONCE A DAY. Dose 2021-0 No Unknown 9-06 00:00: 00 Dose 2021-0 No Unknown 9-06 00:00: 00 TAKE ONE 2022-0 No (1) 9-06 TABLET(S) 00:00: BY MOUTH 00 ONCE A DAY. Dose 2022-0 No Unknown 9 00:00: 00 Dose 2022-0 No Unknown 9 00:00: 00 TAKE ONE 2022-0 No (1) 9-06 TABLET(S) 00:00: BY MOUTH 00 ONCE A DAY. Dose 2022-0 No Unknown 04-21 00:00: 00 TAKE 1 2022-0 No TABLET 6-07 DAILY. 00:00: 00 TAKE 1 2022-0 No TABLET 6-07 DAILY. 00:00: 00 lisinopril 2022-0 No 1mg 20 mg 6-07 tablet 00:00: 00 Dose 2022-0 No Unknown 5-23 00:00: 00 Dose 2022-0 No Unknown 5-23 00:00: 00 Dose 2022-0 No Unknown 5-23 00:00: 00 Dose 2022-0 No Unknown 5-23 00:00: 00 Dose 2022-0 No Unknown 5-23 00:00: 00 Dose 2022-0 No Unknown 5-23 00:00: 00 Dose 2022-0 No Unknown 5-23 00:00: 00 Dose 2022-0 No Unknown 5-23 00:00: 00 Dose 2022-0 No Unknown 5-23 00:00: 00 Dose 2022-0 No Unknown 5-23 00:00: 00 Dose 2022-0 No Unknown 5-23 00:00: 00 Dose 2022-0 No Unknown 5-23 00:00: 00 Dose 2022-0 No Unknown 5-23 00:00: 00 Dose 2022-0 No Unknown 5-23 00:00: 00 Dose 2022-0 No Unknown 5-23 00:00: 00 Dose 2022-0 No Unknown 5-23 00:00: 00 Dose 2022-0 No Unknown 5-23 00:00: 00 Dose 2022-0 No Unknown 5-23 00:00: 00 lisinopril 2022-0 No 1mg 20 mg 2-02 tablet 00:00: 00 lisinopril 2022-0 No 1mg 20 mg 2-02 tablet 00:00: 00 lisinopril 2022-0 No 1mg 20 mg 2-02 tablet 00:00: 00 lisinopril 2022-0 No 1mg 20 mg 2-01 tablet 00:00: 00 lisinopril 2-0 No 1mg 20 mg 2-01 tablet 00:00: 00 lisinopril 2-0 No 1mg 20 mg 2-01 tablet 00:00: 00 Claritin 10 2020-1 No 1mg mg tablet 2-04 00:00: 00 amoxicillin 2020-1 No 1mg 500 mg 2-04 capsule 00:00: 00 Claritin 10 2020-1 No 1mg mg tablet 2-04 00:00: 00 amoxicillin 2020-1 No 1mg 500 mg 2-04 capsule 00:00: 00 Claritin 10 1 No 1mg mg tablet 2-04 00:00: 00 amoxicillin 2020- No 1mg 500 mg 2-04 capsule 00:00: 00 Dose 2020- No Unknown 0-14 00:00: 00 Dose 2020- No Unknown 0-14 00:00: 00 loratadine- 2020-08 No 1mg pseudoephed 0-14 rine ER 10 00:00: mg-240 mg 00 tablet,exte nded [id number] Dose 2020-08 No Unknown 0-13 00:00: 00 Dose 2020-1 No Unknown 0-13 00:00: 00 Bromfed DM 2020-08 No 10mg/5 2 mg-30 0-13 mL mg-10 mg/5 00:00: mL oral 00 syrup prednisone 1-0 No mg 50 mg 8-03 tablet 00:00: 00 diphenhydra 2021-0 No mg mine 50 mg 8-03 capsule 00:00: 00 prednisone 2021-0 No mg 50 mg 8-03 tablet 00:00: 00 prednisone 2021-0 No mg 50 mg 8-03 tablet 00:00: 00 diphenhydra 2021-0 No mg mine 50 mg 8-03 capsule 00:00: 00 diphenhydra 2021-0 No mg mine 50 mg 8-03 capsule 00:00: 00 lisinopril 1-0 No 1mg 20 mg 7-28 tablet 00:00: 00 lisinopril 1-0 No 1mg 20 mg 7-28 tablet 00:00: 00 lisinopril 1-0 No 1mg 20 mg 7-28 tablet 00:00: 00 azithromyci 2021-0 No 1mg n 250 mg 4-26 tablet 00:00: 00 azithromyci 2021-0 No 1mg n 250 mg 4-26 tablet 00:00: 00 azithromyci 2021-0 No 1mg n 250 mg 4-26 tablet 00:00: 00 lisinopril 2021-0 No 1mg 20 mg 4-21 tablet 00:00: 00 prednisone 2021-0 No 1mg 20 mg 4-21 tablet 00:00: 00 loratadine 2021-0 No 1mg 10 mg 4-21 tablet 00:00: 00 cyclobenzap 2021-0 No 12mg rine 5 mg 4-21 tablet 00:00: 00 lisinopril 2021-0 No 1mg 20 mg 4-21 tablet 00:00: 00 prednisone 2021-0 No 1mg 20 mg 4-21 tablet 00:00: 00 loratadine 2021-0 No 1mg 10 mg 4-21 tablet 00:00: 00 cyclobenzap 2021-0 No 12mg rine 5 mg 4-21 tablet 00:00: 00 lisinopril 2021-0 No 1mg 20 mg 4-21 tablet 00:00: 00 prednisone 2021-0 No 1mg 20 mg 4-21 tablet 00:00: 00 loratadine 2021-0 No 1mg 10 mg 4-21 tablet 00:00: 00 cyclobenzap 2021-0 No 12mg rine 5 mg 4-21 tablet 00:00: 00 Macrobid 2021-0 No 1mg 100 mg 3-19 capsule 00:00: 00 Macrobid 2021-0 No 1mg 100 mg 3-19 capsule 00:00: 00 Macrobid 2021-0 No 1mg 100 mg 3-19 capsule 00:00: 00 lisinopril 2020-1 No 1mg 20 mg 0-23 tablet 00:00: 00 lisinopril 2020-1 No 1mg 20 mg 0-23 tablet 00:00: 00 lisinopril 2020-1 No 1mg 20 mg 0-23 tablet 00:00: 00 lisinopril 2020-1 No 1mg 20 mg 0-06 tablet 00:00: 00 azithromyci 2020-1 No 1mg n 250 mg 0-06 tablet 00:00: 00 prednisone 2020-1 No mg 20 mg 0-06 tablet 00:00: 00 lisinopril 2020-1 No 1mg 20 mg 0-06 tablet 00:00: 00 azithromyci 2020-1 No 1mg n 250 mg 0-06 tablet 00:00: 00 prednisone 2020-1 No mg 20 mg 0-06 tablet 00:00: 00 lisinopril 2020-1 No 1mg 20 mg 0-06 tablet 00:00: 00 azithromyci 2020-1 No 1mg n 250 mg 0-06 tablet 00:00: 00 prednisone 2020-1 No mg 20 mg 0-06 tablet 00:00: 00 lisinopril 2020-0 No 1mg 20 mg 7-09 tablet 00:00: 00 lisinopril 2020-0 No 1mg 20 mg 7-09 tablet 00:00: 00 lisinopril 2020-0 No 1mg 20 mg 7-09 tablet 00:00: 00 lisinopril 2020-0 No 1mg 20 mg 6-04 tablet 00:00: 00 azithromyci 2020-0 No 1mg n 250 mg 6-04 tablet 00:00: 00 lisinopril 2020-0 No 1mg 20 mg 6-04 tablet 00:00: 00 azithromyci 2020-0 No 1mg n 250 mg 6-04 tablet 00:00: 00 lisinopril 2020-0 No 1mg 20 mg 6-04 tablet 00:00: 00 azithromyci 2020-0 No 1mg n 250 mg 6-04 tablet 00:00: 00 Vitamin D2 2020-0 No 1(50,00 1,250 mcg 2-27 0 unit) (50,000 00:00: unit) 00 capsule Vitamin D2 2020-0 No 1(50,00 1,250 mcg 2-27 0 unit) (50,000 00:00: unit) 00 capsule Vitamin D2 2020-0 No 1(50,00 1,250 mcg 2-27 0 unit) (50,000 00:00: unit) 00 capsule Augmentin 2020-0 No 1mg 875 mg-125 2-21 mg tablet 00:00: 00 prednisone 2020-0 No mg 20 mg 2-21 tablet 00:00: 00 Augmentin 2020-0 No 1mg 875 mg-125 2-21 mg tablet 00:00: 00 prednisone 2020-0 No mg 20 mg 2-21 tablet 00:00: 00 Augmentin 2020-0 No 1mg 875 mg-125 2-21 mg tablet 00:00: 00 prednisone 2020-0 No mg 20 mg 2-21 tablet 00:00: 00 Vitamin D2 2019-1 No 1(50,00 1,250 mcg 2-04 0 unit) (50,000 00:00: unit) 00 capsule Vitamin D2 2018-1 No 1(50,00 1,250 mcg 2-04 0 unit) (50,000 00:00: unit) 00 capsule Vitamin D2 2018-1 No 1(50,00 1,250 mcg 2-04 0 unit) (50,000 00:00: unit) 00 capsule lisinopril 2018-1 No 1mg 20 mg 2-03 tablet 00:00: 00 lisinopril 2019-1 No 1mg 20 mg 2-03 tablet 00:00: 00 lisinopril 2019-1 No 1mg 20 mg 2-03 tablet 00:00: 00 lisinopril 2019-1 No 1mg 20 mg 2-03 tablet 00:00: 00 lisinopril 2019-1 No 1mg 20 mg 2-03 tablet 00:00: 00 lisinopril 2019-1 No 1mg 20 mg 2-03 tablet 00:00: 00 lisinopril 2019-1 No 1mg 20 mg 2-03 tablet 00:00: 00 lisinopril 2019-1 No 1mg 20 mg 2-03 tablet 00:00: 00 lisinopril 2019-1 No 1mg 20 mg 2-03 tablet 00:00: 00 prednisone 2019-0 No 1mg 20 mg 9-25 tablet 00:00: 00 prednisone 2019-0 No 1mg 20 mg 9-25 tablet 00:00: 00 prednisone 2019-0 No 1mg 20 mg 9-25 tablet 00:00: 00 fluticasone 2019-0 No 2mcg/ac propionate 9-25 tuation 50 00:00: mcg/actuati 00 on nasal spray,suspe nsion fluticasone 2019-0 No 2mcg/ac propionate 9-25 tuation 50 00:00: mcg/actuati 00 on nasal spray,suspe nsion fluticasone 2019-0 No 2mcg/ac propionate 9-25 tuation 50 00:00: mcg/actuati 00 on nasal spray,suspe nsion promethazin 2018-0 No 5mg/5 e-DM 6.25 9-25 mL mg-15 mg/5 00:00: mL oral 00 syrup promethazin 2019-0 No 5mg/5 e-DM 6.25 9-25 mL mg-15 mg/5 00:00: mL oral 00 syrup prednisone 2019-0 No 1mg 20 mg 9-25 tablet 00:00: 00 prednisone 2019-0 No 1mg 20 mg 9-25 tablet 00:00: 00 prednisone 2019-0 No 1mg 20 mg 9-25 tablet 00:00: 00 fluticasone 2019-0 No 2mcg/ac propionate 05-10 tuation 50 00:00: mcg/actuati 00 on nasal spray,suspe nsion fluticasone 2019-0 No 2mcg/ac propionate 05-10 tuation 50 00:00: mcg/actuati 00 on nasal spray,suspe nsion fluticasone 2019-0 No 2mcg/ac propionate 05-10 tuation 50 00:00: mcg/actuati 00 on nasal spray,suspe nsion promethazin 2019-0 No 5mg/5 e-DM 6.25 9-25 mL mg-15 mg/5 00:00: mL oral 00 syrup promethazin 2019-0 No 5mg/5 e-DM 6.25 9-25 mL mg-15 mg/5 00:00: mL oral 00 syrup promethazin 2019-0 No 5mg/5 e-DM 6.25 9-25 mL mg-15 mg/5 00:00: mL oral 00 syrup promethazin 2019-0 No 5mg/5 e-DM 6.25 9-25 mL mg-15 mg/5 00:00: mL oral 00 syrup prednisone 2019-0 No 1mg 20 mg 9-25 tablet 00:00: 00 prednisone 2019-0 No 1mg 20 mg 9-25 tablet 00:00: 00 prednisone 2019-0 No 1mg 20 mg 9-25 tablet 00:00: 00 fluticasone 2019-0 No 2mcg/ac propionate 05-10 tuation 50 00:00: mcg/actuati 00 on nasal spray,suspe nsion fluticasone 2019-0 No 2mcg/ac propionate 05-10 tuation 50 00:00: mcg/actuati 00 on nasal spray,suspe nsion fluticasone 2019-0 No 2mcg/ac propionate 9-25 tuation 50 00:00: mcg/actuati 00 on nasal spray,suspe nsion promethazin 2019-0 No 5mg/5 e-DM 6.25 9-25 mL mg-15 mg/5 00:00: mL oral 00 syrup promethazin 2019-0 No 5mg/5 e-DM 6.25 9-25 mL mg-15 mg/5 00:00: mL oral 00 syrup promethazin 2019-0 No 5mg/5 e-DM 6.25 9-25 mL mg-15 mg/5 00:00: mL oral 00 syrup lisinopril 2019-0 No 1mg 20 mg 8-30 tablet 00:00: 00 amoxicillin 2019-0 No 1mg 500 mg 8-30 tablet 00:00: 00 lisinopril 2019-0 No 1mg 20 mg 8-30 tablet 00:00: 00 amoxicillin 2019-0 No 1mg 500 mg 8-30 tablet 00:00: 00 lisinopril 2019-0 No 1mg 20 mg 8-30 tablet 00:00: 00 amoxicillin 2019-0 No 1mg 500 mg 8-30 tablet 00:00: 00 Vitamin D2 2019-0 No 1unit 50,000 unit 6-14 capsule 00:00: 00 Vitamin D2 2019-0 No 1unit 50,000 unit 6-14 capsule 00:00: 00 Vitamin D2 2019-0 No 1unit 50,000 unit 6-14 capsule 00:00: 00 prednisone 2019-0 No 1mg 20 mg 6-12 tablet 00:00: 00 amoxicillin 2019-0 No 1mg 875 6-12 mg-potassiu 00:00: m 00 clavulanate 125 mg tablet meclizine 2019-0 No 5mg 25 mg 6-12 tablet 00:00: 00 prednisone 2019-0 No 1mg 20 mg 6-12 tablet 00:00: 00 amoxicillin 2019-0 No 1mg 875 6-12 mg-potassiu 00:00: m 00 clavulanate 125 mg tablet meclizine 2019-0 No 5mg 25 mg 6-12 tablet 00:00: 00 prednisone 2019-0 No 1mg 20 mg 6-12 tablet 00:00: 00 amoxicillin 2019-0 No 1mg 875 6-12 mg-potassiu 00:00: m 00 clavulanate 125 mg tablet meclizine 2019-0 No 5mg 25 mg 6-12 tablet 00:00: 00 lisinopril 2019-0 No 1mg 20 mg 5-20 tablet 00:00: 00 lisinopril 2019-0 No 1mg 20 mg 5-20 tablet 00:00: 00 lisinopril 2019-0 No 1mg 20 mg 5-20 tablet 00:00: 00 metronidazo 2019-0 No 1% le 0.75 % 4-29 topical gel 00:00: 00 amoxicillin 2019-0 No 1mg 500 mg 4-29 capsule 00:00: 00 metronidazo 2019-0 No 1% le 0.75 % 4-29 topical gel 00:00: 00 amoxicillin 2019-0 No 1mg 500 mg 4-29 capsule 00:00: 00 metronidazo 2019-0 No 1% le 0.75 % 4-29 topical gel 00:00: 00 amoxicillin 2019-0 No 1mg 500 mg 4-29 capsule 00:00: 00 lisinopril 2018-0 No 1mg 20 mg 4-25 tablet 00:00: 00 methylpredn 2018-0 No 1mg isolone 4 4-25 mg tablets 00:00: in a dose 00 pack meclizine 2018-0 No 1mg 25 mg 4-25 tablet 00:00: 00 promethazin 2018-0 No 1mg e 12.5 mg 4-25 tablet 00:00: 00 fluticasone 2018-0 No 1mcg/ac propionate 4-25 tuation 50 00:00: mcg/actuati 00 on nasal spray,suspe nsion lisinopril 2018-0 No 1mg 20 mg 4-25 tablet 00:00: 00 methylpredn 2018-0 No 1mg isolone 4 4-25 mg tablets 00:00: in a dose 00 pack meclizine 2018-0 No 1mg 25 mg 4-25 tablet 00:00: 00 promethazin 2018-0 No 1mg e 12.5 mg 4-25 tablet 00:00: 00 fluticasone 2018-0 No 1mcg/ac propionate 4-25 tuation 50 00:00: mcg/actuati 00 on nasal spray,suspe nsion lisinopril 2018-0 No 1mg 20 mg 4-25 tablet 00:00: 00 methylpredn 2018-0 No 1mg isolone 4 4-25 mg tablets 00:00: in a dose 00 pack meclizine 2018-0 No 1mg 25 mg 4-25 tablet 00:00: 00 promethazin 2018-0 No 1mg e 12.5 mg 4-25 tablet 00:00: 00 fluticasone 2018-0 No 1mcg/ac propionate 4-25 tuation 50 00:00: mcg/actuati 00 on nasal spray,suspe nsion Azithromyci Azithromyci No Azithromyc Common n n in [facility] Lisinopril Lisinopril No Lisinopril Common [facility] Vitamin D Vitamin D No Vitamin D Common [facility] Chlorhexidi Chlorhexidi No Chlorhexid Common [facility] Claritin Claritin No Claritin Com mon [facility] Ergocalcife Ergocalcife No Ergocalcif Common rol rol sudhir [facility] Amoxicillin Amoxicillin No Amoxicilli Common -Pot -Pot n-Pot [facility] Clavulanate Clavulanate Clavulanat - e [facility] PredniSONE PredniSONE No PredniSONE Common [facility] Vital Signs Vital Name Observation Time Observation Value Comments Source Systolic blood 2023-01-18 13:32:00 124 mm[Hg] [facility] Diastolic blood 2023-01-18 13:32:00 84 mm[Hg] [facility] Heart rate 2023-01-18 13:32:00 65 /min [facility] Body temperature 2023-01-18 13:32:00 36.33 Debbie [facility] Respiratory rate 2023-01-18 13:32:00 18 /min [facility] Body height 2023-01-18 13:32:00 170.2 cm [facility] Body weight 2023-01-18 13:32:00 86.183 kg [facility] BMI 2023-01-18 13:32:00 29.76 kg/m2 [facility] Oxygen saturation in 2023-01-18 13:32:00 100 /min [facility] Pulse oximetry Branch Respiratory rate 2023-01-04 14:25:00 14 /min [facility] Oxygen saturation in 2023-01-04 14:25:00 97 /min [facility] Pulse oximetry Branch Systolic blood 2023-01-04 14:22:00 127 mm[Hg] [facility] Diastolic blood 2023-01-04 14:22:00 78 mm[Hg] [facility] Heart rate 2023-01-04 14:13:00 51 /min [facility] Body temperature 2023-01-04 13:49:00 36.28 Debbie [facility] Body height 2022-12-29 13:40:00 170.2 cm [facility] Body weight 2022-12-29 13:40:00 86.183 kg [facility] BMI 2022-12-29 13:40:00 29.76 kg/m2 [facility] Respiratory rate 2023-01-04 14:05:00 14 /min [facility] Oxygen saturation in 2023-01-04 14:05:00 96 /min [facility] Pulse oximetry Branch Systolic blood 2023-01-04 14:01:00 130 mm[Hg] [facility] Diastolic blood 2023-01-04 14:01:00 80 mm[Hg] [facility] Heart rate 2023-01-04 14:00:00 51 /min [facility] Body temperature 2023-01-04 13:49:00 36.28 Debbie [facility] Body height 2022-12-29 13:40:00 170.2 cm [facility] Body weight 2022-12-29 13:40:00 86.183 kg [facility] BMI 2022-12-29 13:40:00 29.76 kg/m2 [facility] Systolic blood 2022-12-07 13:35:00 116 mm[Hg] [facility] Diastolic blood 2022-12-07 13:35:00 75 mm[Hg] [facility] Heart rate 2022-12-07 13:35:00 70 /min [facility] Body temperature 2022-12-07 13:35:00 36.5 Debbie [facility] Respiratory rate 2022-12-07 13:35:00 18 /min [facility] Body height 2022-12-07 13:35:00 170.2 cm [facility] [address] Body weight 2022-12-07 13:35:00 88.451 kg [facility] BMI 2022-12-07 13:35:00 30.54 kg/m2 [facility] Oxygen saturation in 2022-12-07 13:35:00 99 /min [facility] [place] [employer] [facility] Pulse oximetry Branch Systolic blood 2022-09-07 14:48:00 110 mm[Hg] [facility] [address] Diastolic blood 2022-09-07 14:48:00 74 mm[Hg] [facility] Heart rate 2022-09-07 14:48:00 69 /min [facility] [address] Body temperature 2022-09-07 14:48:00 36.44 Debbie [facility] Respiratory rate 2022-09-07 14:48:00 18 /min [facility] Body height 2022-09-07 14:48:00 170.2 cm [facility] [address] Body weight 2022-09-07 14:48:00 89.903 kg [facility] [address] BMI 2022-09-07 14:48:00 31.04 kg/m2 [facility] Oxygen saturation in 2022-09-07 14:48:00 100 /min [facility] [employer] julianna Pulse oximetry Branch height 2020-07-04 10:00:00 67.5 [in_i] [facility] weight 2020-07-04 10:00:00 186 [lb_av] Common [facility] temperature 2020-07-04 10:00:00 97.5 [degF] [facility] bmi 2020-07-04 10:00:00 28.70 kg/m2 [facility] blood pressure 2020-07-04 10:00:00 118 mm[Hg] [facility] blood pressure 2020-07-04 10:00:00 74 mm[Hg] [facility] BP Systolic 2022-08-05 14:23:00 131 mm[Hg] BP Diastolic 2022-08-05 14:23:00 82 mm[Hg] Weight Measured 2022-08-05 14:23:00 189.20 pounds Height Measured 2022-08-05 14:23:00 64.00 inches Body Temperature 2022-08-05 14:23:00 98.20 degrees Heart Rate 2022-08-05 14:23:00 81.00 /min Respiratory Rate 2022-08-05 14:23:00 18.00 /min BP Systolic 2022-07-29 09:39:00 122 mm[Hg] BP Diastolic 2022-07-29 09:39:00 80 mm[Hg] Weight Measured 2022-07-29 09:39:00 188.80 pounds Height Measured 2022-07-29 09:39:00 64.00 inches Body Temperature 2022-07-29 09:39:00 98.00 degrees Heart Rate 2022-07-29 09:39:00 81.00 /min Respiratory Rate 2022-07-29 09:39:00 18.00 /min BP Systolic 2022-04-24 10:19:00 121 mm[Hg] BP Diastolic 2022-04-24 10:19:00 79 mm[Hg] Weight Measured 2022-04-24 10:19:00 190.20 pounds Height Measured 2022-04-24 10:19:00 64.00 inches Body Temperature 2022-04-24 10:19:00 98.40 degrees Heart Rate 2022-04-24 10:19:00 72.00 /min Respiratory Rate 2022-04-24 10:19:00 19.00 /min BP Systolic 2021-09-17 08:17:00 121 mm[Hg] BP Diastolic 2021-09-17 08:17:00 82 mm[Hg] Weight Measured 2021-09-17 08:17:00 195.20 pounds Height Measured 2021-09-17 08:17:00 64.00 inches Body Temperature 2021-09-17 08:17:00 98.60 degrees Heart Rate 2021-09-17 08:17:00 84.00 /min Respiratory Rate 2021-09-17 08:17:00 16.00 /min BP Systolic 2021-07-30 09:51:00 BP Diastolic 2021-07-30 09:51:00 Weight Measured 2021-07-30 09:51:00 196.00 pounds Height Measured 2021-07-30 09:51:00 64.00 inches Body Temperature 2021-07-30 09:51:00 Heart Rate 2021-07-30 09:51:00 Respiratory Rate 2021-07-30 09:51:00 BP Systolic 2021-05-29 14:30:00 121 mm[Hg] BP Diastolic 2021-05-29 14:30:00 82 mm[Hg] Weight Measured 2021-05-29 14:30:00 196.00 pounds Height Measured 2021-05-29 14:30:00 64.00 inches Body Temperature 2021-05-29 14:30:00 98.10 degrees Heart Rate 2021-05-29 14:30:00 85.00 /min Respiratory Rate 2021-05-29 14:30:00 BP Systolic 2020-12-09 11:49:00 123 mm[Hg] BP Diastolic 2020-12-09 11:49:00 75 mm[Hg] Weight Measured 2020-12-09 11:49:00 192.20 pounds Height Measured 2020-12-09 11:49:00 64.00 inches Body Temperature 2020-12-09 11:49:00 98.70 degrees Heart Rate 2020-12-09 11:49:00 104.00 /min Respiratory Rate 2020-12-09 11:49:00 18.00 /min BP Systolic 2020-12-04 14:05:00 107 mm[Hg] BP Diastolic 2020-12-04 14:05:00 75 mm[Hg] Weight Measured 2020-12-04 14:05:00 193.20 pounds Height Measured 2020-12-04 14:05:00 64.00 inches Body Temperature 2020-12-04 14:05:00 98.40 degrees Heart Rate 2020-12-04 14:05:00 77.00 /min Respiratory Rate 2020-12-04 14:05:00 16.00 /min BP Systolic 2020-11-01 11:59:00 105 mm[Hg] BP Diastolic 2020-11-01 11:59:00 71 mm[Hg] Weight Measured 2020-11-01 11:59:00 195.00 pounds Height Measured 2020-11-01 11:59:00 64.00 inches Body Temperature 2020-11-01 11:59:00 98.20 degrees Heart Rate 2020-11-01 11:59:00 70.00 /min Respiratory Rate 2020-11-01 11:59:00 16.00 /min BP Systolic 2020-06-07 09:50:00 101 mm[Hg] BP Diastolic 2020-06-07 09:50:00 65 mm[Hg] Weight Measured 2020-06-07 09:50:00 186.20 pounds Height Measured 2020-06-07 09:50:00 64.00 inches Body Temperature 2020-06-07 09:50:00 97.80 degrees Heart Rate 2020-06-07 09:50:00 71.00 /min Respiratory Rate 2020-06-07 09:50:00 16.00 /min BP Systolic 2019-10-06 10:06:00 118 mm[Hg] BP Diastolic 2019-10-06 10:06:00 81 mm[Hg] Weight Measured 2019-10-06 10:06:00 191.00 pounds Height Measured 2019-10-06 10:06:00 64.00 inches Body Temperature 2019-10-06 10:06:00 99.10 degrees Heart Rate 2019-10-06 10:06:00 77.00 /min Respiratory Rate 2019-10-06 10:06:00 16.00 /min BP Systolic 2019-07-18 10:05:00 109 mm[Hg] BP Diastolic 2019-07-18 10:05:00 74 mm[Hg] Weight Measured 2019-07-18 10:05:00 192.60 pounds Height Measured 2019-07-18 10:05:00 64.00 inches Body Temperature 2019-07-18 10:05:00 98.50 degrees Heart Rate 2019-07-18 10:05:00 76.00 /min Respiratory Rate 2019-07-18 10:05:00 16.00 /min Procedures Procedure Date / Time Performing Clinician Source Performed MASS EXCISION 2023-01-04 12:40:00 Barak Lombardo [facility] POCT TEST 2023-01-04 12:32:00 Barak Lombardo [facility] POCT TEST 2023-01-04 12:32:00 Barak Lombardo [facility] DAY SURGERY - ADC 2023-01-04 05:01:[address] [facility] Name [address] CONSENT/REFUSAL FOR 2022-12-22 20:45:33 Doctor Mccain [facility] DIAGNOSIS AND TREATMENT [facility] ASSIGNMENT OF BENEFITS 2022-12-22 20:45:12 Doctor Mccain, [facility] Name [address] EXTERNAL PROVIDER RECORDS 2022-09-21 06:01:00 Doctor Mccain [facility] Name [address] AUTHORIZATION FOR RELEASE 2022-09-06 06:01:00 Doctor Mccain [facility] [place] [address] REFERRAL- REQUEST/RESPONSE 2022-08-24 06:01:00 Doctor Mccain [facility] Name [address] CT ANKLE LEFT WO CONTRAST 2022-07-24 16:01:00 Requisition, Paper [facility] US ABDOMEN COMPLETE 2022-07-24 15:44:15 Kaylynn Ruiz [facility] PATIENT FINANCIAL 2022-07-24 14:17:20 Doctor Mccain [facility] POLICY [facility] NO SHOW OR MISSED 2022-07-24 14:16:10 Doctor Mccain [facility] APPOINTMENT POLICY [facility] ACKNOWLEDGEMENT NOTICE OF PRIVACY 2022-07-24 14:15:56 Doctor Mccain, [facility] PRACTICES [place] [facility] [address] CONSENT/REFUSAL FOR 2022-07-24 14:15:43 Doctor Unassigned, [facility] DIAGNOSIS AND TREATMENT [facility] ASSIGNMENT OF BENEFITS 2022-07-24 14:15:27 Doctor Unassigned, [facility] Plan of Care Planned Activity Planned Date Details Comments Source Goal Plan of Care Note [code = 42852-6] Goal Plan of Care Note [code = 00551-6] Goal Plan of Care Note [code = 33039-6] Goal Plan of Care Note [code = 16912-6] Goal Plan of Care Note [code = 39415-5] Goal Plan of Care Note [code = 12560-9] Goal Plan of Care Note [code = 87367-5] Goal Plan of Care Note [code = 90743-0] Goal Plan of Care Note [code = 49533-6] Goal Plan of Care Note [code = 95333-8] Goal Plan of Care Note [code = 03308-1] Goal Plan of Care Note [code = 46026-1] Goal Plan of Care Note [code = 39148-4] Goal Plan of Care Note [code = 39032-7] Goal Plan of Care Note [code = 04748-9] Goal Plan of Care Note [code = 37971-7] Goal Plan of Care Note [code = 33265-3] Goal Plan of Care Note [code = 97615-9] Goal Plan of Care Note [code = 61403-1] Goal Plan of Care Note [code = 50764-9] Goal Plan of Care Note [code = 91529-5] Goal Plan of Care Note [code = 56402-7] Goal Plan of Care Note [code = 52888-0] Goal Plan of Care Note [code = 50670-9] Goal Plan of Care Note [code = 26551-3] Goal Plan of Care Note [code = 87419-9] Goal Plan of Care Note [code = 83288-5] Goal Plan of Care Note [code = 07094-9] Goal Plan of Care Note [code = 82538-9] Goal Plan of Care Note [code = 42244-0] Goal Plan of Care Note [code = 75644-6] Goal Plan of Care Note [code = 34454-5] Goal Plan of Care Note [code = 69820-9] Goal Plan of Care Note [code = 15710-7] Goal Plan of Care Note [code = 07058-5] Goal Plan of Care Note [code = 75274-7] Goal Plan of Care Note [code = 93275-6] Goal Plan of Care Note [code = 82112-1] Goal Plan of Care Note [code = 97619-1] Goal Plan of Care Note [code = 48990-3] Goal Plan of Care Note [code = 51045-4] Goal Plan of Care Note [code = 01945-4] Goal Plan of Care Note [code = 36284-4] Goal Plan of Care Note [code = 32658-6] Goal Plan of Care Note [code = 47273-8] Goal Plan of Care Note [code = 75679-4] Goal Plan of Care Note [code = 33203-9] Goal Plan of Care Note [code = 38617-4] Goal Plan of Care Note [code = 38454-2] Goal Plan of Care Note [code = 70780-2] Goal Plan of Care Note [code = 33398-0] Goal Plan of Care Note [code = 62452-4] Goal Plan of Care Note [code = 08129-0] Goal Plan of Care Note [code = 40269-0] Goal Plan of Care Note [code = 18072-9] Goal Plan of Care Note [code = 27291-0] Goal Plan of Care Note [code = 21763-6] Goal Plan of Care Note [code = 28119-8] Goal Plan of Care Note [code = 77648-5] Goal Plan of Care Note [code = 41511-4] Goal Plan of Care Note [code = 84397-7] Goal Plan of Care Note [code = 88698-3] Goal Plan of Care Note [code = 27926-0] Goal Plan of Care Note [code = 60931-7] Goal Plan of Care Note [code = 21009-8] Goal Plan of Care Note [code = 15012-1] Goal Plan of Care Note [code = 38875-1] Goal Plan of Care Note [code = 51538-0] Goal Plan of Care Note [code = 01978-8] Goal Plan of Care Note [code = 17477-8] Goal Plan of Care Note [code = 28346-7] Goal Plan of Care Note [code = 44068-8] Goal Plan of Care Note [code = 48093-5] Goal Plan of Care Note [code = 50113-7] Goal Plan of Care Note [code = 30775-0] Goal Plan of Care Note [code = 10655-0] Goal Plan of Care Note [code = 92224-3] Goal Plan of Care Note [code = 81069-0] Goal Plan of Care Note [code = 60436-8] Goal Plan of Care Note [code = 19754-4] Goal Plan of Care Note [code = 19228-2] Goal Plan of Care Note [code = 77980-3] Goal Plan of Care Note [code = 83255-8] Goal Plan of Care Note [code = 23991-5] Goal Plan of Care Note [code = 08724-4] Goal Plan of Care Note [code = 73564-4] Goal Plan of Care Note [code = 13235-6] Goal Plan of Care Note [code = 92387-4] Goal Plan of Care Note [code = 78274-8] Goal Plan of Care Note [code = 15120-5] Goal Plan of Care Note [code = 35080-0] Goal Plan of Care Note [code = 29731-8] Goal Plan of Care Note [code = 39124-1] Goal Plan of Care Note [code = 10646-5] Goal Plan of Care Note [code = 34125-8] Goal Plan of Care Note [code = 54430-6] Goal Plan of Care Note [code = 30649-6] Goal Plan of Care Note [code = 30750-8] Goal Plan of Care Note [code = 62273-7] Goal Plan of Care Note [code = 35100-1] Goal Plan of Care Note [code = 20042-9] Goal Plan of Care Note [code = 29308-5] Goal Plan of Care Note [code = 41167-7] Goal Plan of Care Note [code = 53256-1] Goal Plan of Care Note [code = 80009-5] Goal Plan of Care Note [code = 59515-4] Goal Plan of Care Note [code = 66355-7] Encounters Start End Encounter Admission Attending Care Care Encounter Source Date/Time Date/Time Type Type Clinicians Facility Department ID 2022-12-16 Outpatient Johny LOMBARDO [facility] [id number] Univers 09:54:11 BARAK lopez [facility] 2021-09-10 Outpatient STLMLC STLMLC [id number] Common 12:06:47 [id number] [facility] - [facility] 2023-05-06 2023-05-06 Outpatient SFA SFA [id number] 023 Jesus 16:01:33 16:01:33 0921 Tom Richey 2023-01-18 2023-01-[address] [facility] [id number] Univers 08:15:00 08:30:00 Visit Barak [place] 350.1.13.10 i ty [place] [id number] Nd dical NAL 419 [facility] 2023-01-18 2023-01-18 [facility] [id number] Univers 08:15:00 08:15:00 BARAK ity of [facility] 2023-01-05 2023-01-[address] [facility] [id number] Univers 00:00:00 00:00:00 Barak [place] 350.1.13.10 i ty [facility]k [facility] [place] [id number] Nd dic[address] 2023-01-04 2023-01-04 [facility] ANTONIO [id number] Univers 07:12:00 09:31:00 BARAK ity of [facility] 2023-01-04 2023-01-04 [facility] 1.2.840.114 [id number] Univers 07:12:00 09:31:00 Encounter Barak [place] 350.1.13.10 ity of Rk [facility] [place] [id number] [facility] [address] 2023-01-04 2023-01-[address] [facility] 1.2.840.114 [id number] Univers 07:45:00 09:05:00 Barak [place] 350.1.13.10 i ty [facility]k [facility] [place] [id number] [facility] ical [place] [address] 2022-12-28 2022-12-28 [facility] 1.2.840.114 [id number] Univers 00:00:00 00:00:00 Surgery [place] 350.1.13.10 i [place] [id number] Nd dical NAL 188 [facility] 2022-12-28 2022-12-28 Telephone Jamie [facility] 1.2.410.252 [id number] Univers 00:00:00 00:00:00 Barak [place] 350.1.13.10 i [place] [id number] Nd dical NAL 419 [facility] 2022-12-22 2022-12-22 Outpatient R [facility] [id number] Univers 15:42:57 23:59:00 ity of [facility] 2022-12-22 2022-12-22 [facility] 1.2.840.114 [id number] Univers 15:42:57 23:59:00 Encounter M CHRISTYADRIAN 350.1.13.10 [place] [id number] [facility] [address] 2022-12-15 2022-12-15 [facility]phone [facility] [id number] Univers 00:00:00 00:00:00 Barak [place] 350.1.13.10 i [place] [id number] Nd dical NAL 419 [facility] 2022-12-07 2022-12-07 Out[facility] [id number] Univers 08:00:00 09:42:20 BARAK ity [facility] 2022-12-07 2022-12-07 [facility] 1.2.840.114 [id number] Univers 08:00:00 09:42:20 Visit Barak [place] 350.1.13.10 i [place] [id number] Nd dical NAL 419 [facility] 2022-11-19 2022-11-19 Telephone [facility] 1.2.840.114 [id number] Univers 00:00:00 00:00:00 Carmen [place] 350.1.13.10 i ty of [place] [id number] Nd dical NAL 188 [facility] 2022-11-03 2022-11-[address] [facility] [id number] 023 Jesus 14:18:57 14:18:57 0321 F Kaiden 2022-09-21 2022-09-21 Orders Doctor TERENCE 1.2.840.114 [id number] Univers 00:00:00 00:00:00 Only Unassigned, ALE 350.1.13.[address] [place] [facility] 4.2.7.2.686 Jonathan as [phone] [address] 2022-09-21 2022-09-21 Telephone [facility] 1.2.840.114 [id number] Univers 00:00:00 00:00:00 Carmen [place] 350.1.13.10 i ty [place] [id number] Nd dical NAL 188 [facility] 2022-09-07 2022-09-07 Office Carmen Hale [facility] 1.2.840.1 14 [id number] Univers 09:30:00 10:00:00 Visit Barak [place] 350.1.13 .10 ity of [place] [id number] Nd dical NAL 188 [facility] 2022-09-07 2022-09-07 Outpatient R JAMIE [facility] [id number] Univers 09:30:00 09:30:00 BARAK itshirley of [facility] 2022-09-07 2022-09-07 Letter [facility] 1.2.504.390 [id number] Univers 00:00:00 00:00:00 (Out) Carmen [place] 350.1.13.10 i ty [place] [id number] Nd dical [address] 2022-09-06 2022-09-06 Orders Doctor TERENCE 1.2.840.114 [id number] Univers 00:00:00 00:00:00 Only Unassigned, ALE 350.1.13.10 [place]y [place] [facility] 4.2.7.2.686 Jonathan as [id number] [address] 2022-08-25 2022-08-25 Outpatient SFA SFA [id number] 023 Jesus 11:17:49 11:17:49 0110 [facility] 2022-08-24 2022-08-24 Orders Doctor TERENCE 1.2.840.114 [id number] Univers 00:00:00 00:00:00 Only Unassigned, ALE 350.1.13.[address] [place] [facility] 4.2.7.2.686 Jonathan as [id number] [address] 2022-08-18 2022-08-18 Outpatient R RADIOLOGY [facility] [id number] Univers 00:00:00 00:00:00 ity of [facility] 2022-08-05 2022-08-05 Outpatient SFA SFA [id number] 022 Jesus 14:17:30 14:17:30 1221 F Duson 2022-08-05 2022-08-05 Outpatient [id number]- [id number] 5ckhf4-s 00:00:00 00:00:00 Visit t90s-0hxd 41d-4bfa-8 -8716-f6e 716-e1c529 48864f88q 10a22d 2022-08-03 2022-08-03 Outpatient SFA SFA [id number] 022 Jesus 14:55:37 14:55:37 1219 F Duson 2022-07-29 2022-07-29 Outpatient SFA SFA [id number] 022 Jesus 09:21:42 09:21:42 1214 F Duson 2022-07-29 2022-07-29 Outpatient [id number]- [id number] 2c 26yb6q-z 00:00:00 00:00:00 Visit z9e9-92tp 3p0-24wq-r -s0in-092 8cb-000f08 [id number] 1978d0 2022-07-24 2022-07-24 Hospital Radiology [facility] 1.2.840.114 [id number] Univers 08:19:52 23:59:00 Encounter [place] 350.1.13.10 ity [facility] 4.2.7.2.686 [facility] [id number] [facility] [address] 2022-07-24 2022-07-24 Outpatient R RADIOLOGY [facility] [id number] Univers 08:19:52 23:59:00 ity [facility] 2022-07-24 2022-07-24 Hospital Radiology [facility] 1.2.840.114 [id number] Univers 08:00:00 08:18:00 Encounter [place] 350.1.13.10 ity [facility] 4.2.7.2.686 [facility] [id number] [facility] [address] 2022-04-24 2022-04-24 Outpatient [id number]- [id number] 8d [id number] 00:00:00 00:00:00 Visit 9eaf-4f21 eaf-4f21-8 -8bae-a08 terry-f37714 [id number] d236e3 2020-07-04 2020-07-04 OFFICE [facility] [id number] Co mmon 00:00:00 00:00:00 VISIT [facility] PT LEVEL 3 - [facility] Results Test Description Test Time Test Comments Results Result Comments Source POCT TEST 2023-01-04 12:32:00 Test Item Value Reference Range Interpretation Comme nts POCT PREG (test code = 1605) Negative On board controls acceptable with C Line (test code = 3574) Yes POCT PREG LOT # (test code = 3575) POCT PREG TEST DATE (test code = 3576[id number] 12:32:00 Test Item Value Reference Range Interpretation Comments POCT PREG (test code = 1605) Negative On board controls acceptable with C Yes Line (test code = 3574) POCT PREG LOT # (test code = 3575) POCT PREG TEST DATE (test code = 3576) [facility] W/AUTO DIFF WITH [id number] 03:11:12 Test Item Value Reference Range Interpretation Comments WBC (test code = 7.2 K/UL 3.5-11.0 1001) RBC (test code = 4.64 M/UL 3.80-5.40 1002) HEMOGLOBIN (test 12.9 G/DL 11.5-15.5 code = 1003) HEMATOCRIT (test 38.4 % 34.0-45.0 code = 1004) MCV (test code = 82.8 fL 80.0-99.0 1005) MCH (test code = 27.8 PG 25.0-33.0 1006) MCHC (test code = 33.6 G/DL 31.0-36.0 1007) RDW (test code = 12.3 % 11.5-15.0 1038) NEUTROPHILS (test 58.9 % code = 1008) LYMPHOCYTES (test 22.9 % code = 1010) MONOCYTES (test code 7.8 % = 1011) EOSINOPHILS (test 8.8 % code = 1012) BASOPHILS (test code 1.0 % = 1013) IMMATURE 0.6 % GRANULOCYTES (test code = 1036) NUCLEATED RBCS (test 0.0 /100 See_Comment [Autom ated message] code = 1065) WBC'S The system [employer] generated this result transmitted ref erence range: 0.0. The reference range was not used to int erpret this result as normal/abnormal . PLATELET COUNT (test 244 K/UL 130-400 code = 1015) ABSOLUTE NEUTROPHILS 4.23 K/UL 1.50-7.50 (test code = 1066) ABSOLUTE LYMPHOCYTES 1.64 K/UL 1.00-4.00 (test code = 1067) ABSOLUTE MONOCYTES 0.56 K/UL 0.20-1.00 (test code = 1068) ABSOLUTE EOSINOPHILS 0.63 K/UL 0.00-0.50 H (test code = 1040) ABSOLUTE BASOPHILS 0.07 K/UL 0.00-0.20 (test code = 1069) ABS IMMATURE 0.04 K/UL 0.00-0.10 GRANULOCYTES (test code = 1020) ABS NUCLEATED RBCS 0.00 K/UL 0.00-0.11 UNLESS O THERWISE (test code = 73380) INDICATE D, ALL TESTING PERFORM ED ATCLINICAL PATH [facility] [employer], [place]. [address] [place] [address] [facility] DIRECTOR: Dami SMALLWOODIA NUMBER [id number] CAP ACCREDITATION N O. [id number] 11:34:01 Test Item Value Reference Range Interpretation Comments D-DIMER (test <0.27 UG/ML FEU See_Comment NOTE: Prov ided code = 1405) reference range is established for evaluation of D eep Venous Thrombosis/Pulm onary Embolus (DVT/PE ). Results below c utoff value of <=0.49 UG/ML FEU have a high negative predic tive value forDVT/PE . No reference range is established for disseminatedint ra-vascu lar coagulation (DIC). UNLESS OTHERWIS E INDICATED, ALL TESTING PERFORMED ATCLI NICAL PATHOLOGY [facility]ITAL[facility], [facility]. [address] [place], [place] [address] LABORATORY DIRE CTOR: NARCISO SPENCE M.D. CLIA NUMBER [id number] [place] [id number] [Autom ated message] The sy stem which generated this result transmit bello reference range : <=0.49. The ref erence range was not u sed to interpret this result as normal/abnor mal. [id number] 00:00:00 Test Item Value Reference Range Interpretation Comments D-DIMER (test code = 1405) <0.27 UG/MLFEU [id number] 00:00:00 Test Item Value Reference Range Interpretation Comments D-DIMER (test code = 1405) <0.27 UG/MLFEU TSH, THIRD [id number] 04:20:00 Test Item Value Reference Range Interpretation Comments TSH, THIRD GENERATION (test code 1.390 UIU/ML 0.400-4.100 = 2821) COMPREHENSIVE METABOLIC [id number] 04:03:09 Test Item Value Reference Range Interpretation Comments GLUCOSE (test code = 100 MG/DL 70-99 H 2216) BUN (test code = 19 MG/DL -2207) CREATININE (test 0.95 MG/DL 0.60-1.30 code = 2214) eGFR (2020 CKD-EPI) 76 ML/MIN/1.73 >60 (test code = 32999) CALC BUN/CREAT (test 20 RATIO 6-28 code = 223) SODIUM (test code = 140 MEQ/L 344-206 8879) POTASSIUM (test code 4.3 MEQ/L 3.5-5.4 = 2227) CHLORIDE (test code 104 MEQ/L 95-107 = 2214) CARBON DIOXIDE (test 26 MEQ/L 19-31 code = 220) CALCIUM (test code = 9.3 MG/DL 8.5-10.5 2208) PROTEIN, TOTAL (test 6.5 G/DL 6.1-8.3 code = 222) ALBUMIN (test code = 4.4 G/DL 3.5-5.2 2200) CALC GLOBULIN (test 2.1 G/DL 1.9-3.7 code = 224) CALC A/G RATIO (test 2.1 RATIO 1.0-2.6 code = 223) BILIRUBIN, TOTAL 0.5 MG/DL See_Comment [Automated message] (test code = 220) The syste [employer] which generated this result transmit bello reference range : <=1.2. The refe rence range was not u sed to interpret th is result as normal/abnormal . ALKALINE PHOSPHATASE 50 U/L 40-113 (test code = 220) AST (test code = 26 U/L 9-40 2217) ALT (test code = 19 U/L 5-40 2218) LIPID [id number] 04:03:09 Test Item Value Reference Range Interpretation Comments CHOLESTEROL (test 142 MG/DL <200 code = 2210) TRIGLYCERIDES (test 64 MG/DL <150 code = 2232) HDL CHOLESTEROL (test 50 MG/DL >39 code = 2220) CALC LDL CHOL (test 78 MG/DL <100 NOTE: C ALCULATED LDL code = 2237) IS BASED ON LUCIANA-VAN METHOD WHICHINCLUDES ADJUSTABLE TRIGLYCERIDE:VL DL CHOLESTEROL RAT IO.THIS FACTOR VARIES B Y MEASURED TRIGLY CERIDE AND NON-HDLCHOL ESTEROL CONCENTRATIONS WITH INCREASED CALCU LATED LDL SEENIN HIGH ER TRIGLYCERIDE OR LOWER NON-HDL SPECIME NS. FOR MOREINFORMATION , SEE CLIENT ANNOUNCE MENT AT [email or web address] [email or web address] [email or web address] LDL/HDL 1.56 RATIO <3.22 UNLESS O THERWISE (test code = 2238) INDICATED , ALL TESTING PERFORMED [facility], [facility]. [address] [place] [address] [facility] DIRECTOR: Dami SMALLWOODIA NUMBER [id number] CAP ACCREDITATION N O. [id number] TSH, THIRD GENERATION [ADDED]2022-04-25 00:00:00 Test Item Value Reference Range Interpretation Comments TSH, THIRD GENERATION (test code 1.390 UIU/ML = 2821) LIPID PANEL [ADDED]2022-04-25 00:00:00 Test Item Value Reference Range Interpretation Comments CHOLESTEROL (test code = 2210) 142 MG/DL TRIGLYCERIDES (test code = 2232) 64 MG/DL HDL CHOLESTEROL (test code = 2220) 50 MG/DL CALC LDL CHOL (test code = 2237) 78 MG/DL RISK RATIO LDL/HDL (test code = 1.56 RATIO 2238) LIPID PANEL [ADDED]2022-04-25 00:00:00 Test Item Value Reference Range Interpretation Comments CHOLESTEROL (test code = 2210) 142 MG/DL TRIGLYCERIDES (test code = 2232) 64 MG/DL HDL CHOLESTEROL (test code = 2220) 50 MG/DL CALC LDL CHOL (test code = 2237) 78 MG/DL RISK RATIO LDL/HDL (test code = 1.56 RATIO 2238) COMPREHENSIVE METABOLIC PANEL [ADDED]2022-04-25 00:00:00 Test Item Value Reference Range Interpretation Comments GLUCOSE (test code = 2217) 100 MG/DL BUN (test code = 2208) 19 MG/DL CREATININE (test code = 2214) 0.95 MG/DL eGFR (2020 CKD-EPI) (test code 76 ML/MIN/1.73 = 79702) CALC BUN/CREAT (test code = 20 RATIO 2235) SODIUM (test code = 2231) 140 MEQ/L POTASSIUM (test code = 2228) 4.3 MEQ/L CHLORIDE (test code = 2215) 104 MEQ/L CARBON DIOXIDE (test code = 26 MEQ/L 2205) CALCIUM (test code = 2209) 9.3 MG/DL PROTEIN, TOTAL (test code = 6.5 G/DL 2228) ALBUMIN (test code = 2201) 4.4 G/DL CALC GLOBULIN (test code = 2.1 G/DL 2240) CALC A/G RATIO (test code = 2.1 RATIO 2234) BILIRUBIN, TOTAL (test code = 0.5 MG/DL 2207) ALKALINE PHOSPHATASE (test 50 U/L code = 2204) AST (test code = 2218) 26 U/L ALT (test code = 2219) 19 U/L COMPREHENSIVE METABOLIC PANEL [ADDED]2022-04-25 00:00:00 Test Item Value Reference Range Interpretation Comments GLUCOSE (test code = 2217) 100 MG/DL BUN (test code = 2208) 19 MG/DL CREATININE (test code = 2214) 0.95 MG/DL eGFR (2020 CKD-EPI) (test code 76 ML/MIN/1.73 = 54666) CALC BUN/CREAT (test code = 20 RATIO 2235) SODIUM (test code = 2231) 140 MEQ/L POTASSIUM (test code = 2228) 4.3 MEQ/L CHLORIDE (test code = 2215) 104 MEQ/L CARBON DIOXIDE (test code = 26 MEQ/L 2205) CALCIUM (test code = 2209) 9.3 MG/DL PROTEIN, TOTAL (test code = 6.5 G/DL 2228) ALBUMIN (test code = 2201) 4.4 G/DL CALC GLOBULIN (test code = 2.1 G/DL 2240) CALC A/G RATIO (test code = 2.1 RATIO 2234) BILIRUBIN, TOTAL (test code = 0.5 MG/DL 2207) ALKALINE PHOSPHATASE (test 50 U/L code = 2204) AST (test code = 2218) 26 U/L ALT (test code = 2219) 19 U/L TSH, THIRD GENERATION [ADDED]2022-04-25 00:00:00 Test Item Value Reference Range Interpretation Comments TSH, THIRD GENERATION (test code 1.390 UIU/ML = 2821) TSH, THIRD GENERATION [ADDED]2022-04-25 00:00:00 Test Item Value Reference Range Interpretation Comments TSH, THIRD GENERATION (test code 1.390 UIU/ML = 2821) TSH, THIRD GENERATION [ADDED]2022-04-25 00:00:00 Test Item Value Reference Range Interpretation Comments TSH, THIRD GENERATION (test code 1.390 UIU/ML = 2821) LIPID PANEL [ADDED]2022-04-25 00:00:00 Test Item Value Reference Range Interpretation Comments CHOLESTEROL (test code = 2210) 142 MG/DL TRIGLYCERIDES (test code = 2232) 64 MG/DL HDL CHOLESTEROL (test code = 2220) 50 MG/DL CALC LDL CHOL (test code = 2237) 78 MG/DL RISK RATIO LDL/HDL (test code = 1.56 RATIO 2238) LIPID PANEL [ADDED]2022-04-25 00:00:00 Test Item Value Reference Range Interpretation Comments CHOLESTEROL (test code = 2210) 142 MG/DL TRIGLYCERIDES (test code = 2232) 64 MG/DL HDL CHOLESTEROL (test code = 2220) 50 MG/DL CALC LDL CHOL (test code = 2237) 78 MG/DL RISK RATIO LDL/HDL (test code = 1.56 RATIO 2238) COMPREHENSIVE METABOLIC PANEL [ADDED]2022-04-25 00:00:00 Test Item Value Reference Range Interpretation Comments GLUCOSE (test code = 2217) 100 MG/DL BUN (test code = 2208) 19 MG/DL CREATININE (test code = 2214) 0.95 MG/DL eGFR (2020 CKD-EPI) (test code 76 ML/MIN/1.73 = 58946) CALC BUN/CREAT (test code = 20 RATIO 2235) SODIUM (test code = 2231) 140 MEQ/L POTASSIUM (test code = 2228) 4.3 MEQ/L CHLORIDE (test code = 2215) 104 MEQ/L CARBON DIOXIDE (test code = 26 MEQ/L 2205) CALCIUM (test code = 2209) 9.3 MG/DL PROTEIN, TOTAL (test code = 6.5 G/DL 2228) ALBUMIN (test code = 2201) 4.4 G/DL CALC GLOBULIN (test code = 2.1 G/DL 2240) CALC A/G RATIO (test code = 2.1 RATIO 2234) BILIRUBIN, TOTAL (test code = 0.5 MG/DL 2206) ALKALINE PHOSPHATASE (test 50 U/L code = 2204) AST (test code = 2218) 26 U/L ALT (test code = 2219) 19 U/L COMPREHENSIVE METABOLIC PANEL [ADDED]2022-04-25 00:00:00 Test Item Value Reference Range Interpretation Comments GLUCOSE (test code = 2217) 100 MG/DL BUN (test code = 2208) 19 MG/DL CREATININE (test code = 2214) 0.95 MG/DL eGFR (2020 CKD-EPI) (test code 76 ML/MIN/1.73 = 84590) CALC BUN/CREAT (test code = 20 RATIO 223) SODIUM (test code = 2231) 140 MEQ/L POTASSIUM (test code = 2228) 4.3 MEQ/L CHLORIDE (test code = 2215) 104 MEQ/L CARBON DIOXIDE (test code = 26 MEQ/L 2205) CALCIUM (test code = 2209) 9.3 MG/DL PROTEIN, TOTAL (test code = 6.5 G/DL 2228) ALBUMIN (test code = 220) 4.4 G/DL CALC GLOBULIN (test code = 2.1 G/DL 2239) CALC A/G RATIO (test code = 2.1 RATIO 2233) BILIRUBIN, TOTAL (test code = 0.5 MG/DL 2206) ALKALINE PHOSPHATASE (test 50 U/L code = 220) AST (test code = 2218) 26 U/L ALT (test code = 2219) 19 U/L TSH, THIRD GENERATION [ADDED]2022-04-25 00:00:00 Test Item Value Reference Range Interpretation Comments TSH, THIRD GENERATION (test code 1.390 UIU/ML = 2821) TSH, THIRD GENERATION [ADDED]2022-04-25 00:00:00 Test Item Value Reference Range Interpretation Comments TSH, THIRD GENERATION (test code 1.390 UIU/ML = 2821) TSH, THIRD GENERATION [ADDED]2022-04-25 00:00:00 Test Item Value Reference Range Interpretation Comments TSH, THIRD GENERATION (test code 1.390 UIU/ML = 2821) LIPID PANEL [ADDED]2022-04-25 00:00:00 Test Item Value Reference Range Interpretation Comments CHOLESTEROL (test code = 2210) 142 MG/DL TRIGLYCERIDES (test code = 2232) 64 MG/DL HDL CHOLESTEROL (test code = 2220) 50 MG/DL CALC LDL CHOL (test code = 2237) 78 MG/DL RISK RATIO LDL/HDL (test code = 1.56 RATIO 2238) LIPID PANEL [ADDED]2022-04-25 00:00:00 Test Item Value Reference Range Interpretation Comments CHOLESTEROL (test code = 2210) 142 MG/DL TRIGLYCERIDES (test code = 2232) 64 MG/DL HDL CHOLESTEROL (test code = 2220) 50 MG/DL CALC LDL CHOL (test code = 2237) 78 MG/DL RISK RATIO LDL/HDL (test code = 1.56 RATIO 2238) COMPREHENSIVE METABOLIC PANEL [ADDED]2022-04-25 00:00:00 Test Item Value Reference Range Interpretation Comments GLUCOSE (test code = 2217) 100 MG/DL BUN (test code = 2208) 19 MG/DL CREATININE (test code = 2214) 0.95 MG/DL eGFR (2020 CKD-EPI) (test code 76 ML/MIN/1.73 = 55586) CALC BUN/CREAT (test code = 20 RATIO 2235) SODIUM (test code = 2231) 140 MEQ/L POTASSIUM (test code = 2228) 4.3 MEQ/L CHLORIDE (test code = 2215) 104 MEQ/L CARBON DIOXIDE (test code = 26 MEQ/L 2205) CALCIUM (test code = 2209) 9.3 MG/DL PROTEIN, TOTAL (test code = 6.5 G/DL 2228) ALBUMIN (test code = 2201) 4.4 G/DL CALC GLOBULIN (test code = 2.1 G/DL 2239) CALC A/G RATIO (test code = 2.1 RATIO 2234) BILIRUBIN, TOTAL (test code = 0.5 MG/DL 2206) ALKALINE PHOSPHATASE (test 50 U/L code = 2204) AST (test code = 2218) 26 U/L ALT (test code = 2219) 19 U/L COMPREHENSIVE METABOLIC PANEL [ADDED]2022-04-25 00:00:00 Test Item Value Reference Range Interpretation Comments GLUCOSE (test code = 2217) 100 MG/DL BUN (test code = 2208) 19 MG/DL CREATININE (test code = 2214) 0.95 MG/DL eGFR (2020 CKD-EPI) (test code 76 ML/MIN/1.73 = 01753) CALC BUN/CREAT (test code = 20 RATIO 2235) SODIUM (test code = 2231) 140 MEQ/L POTASSIUM (test code = 2228) 4.3 MEQ/L CHLORIDE (test code = 2215) 104 MEQ/L CARBON DIOXIDE (test code = 26 MEQ/L 2205) CALCIUM (test code = 2209) 9.3 MG/DL PROTEIN, TOTAL (test code = 6.5 G/DL 2229) ALBUMIN (test code = 2201) 4.4 G/DL CALC GLOBULIN (test code = 2.1 G/DL 0) CALC A/G RATIO (test code = 2.1 RATIO 4) BILIRUBIN, TOTAL (test code = 0.5 MG/DL 2206) ALKALINE PHOSPHATASE (test 50 U/L code = 2204) AST (test code = 2218) 26 U/L ALT (test code = 2219) 19 U/L TSH, THIRD GENERATION [ADDED]2022-04-25 00:00:00 Test Item Value Reference Range Interpretation Comments TSH, THIRD GENERATION (test code 1.390 UIU/ML = 2821) TSH, THIRD GENERATION [ADDED]2022-04-25 00:00:00 Test Item Value Reference Range Interpretation Comments TSH, THIRD GENERATION (test code 1.390 UIU/ML = 2821) VITAMIN D, 25 [id number] 04:31:09 Test Item Value Reference Range Interpretation Comments VITAMIN D, 25 OH 52 NG/ML SEE BELOW NOTE: 25-H YDROXYVITAMIN D (test code = 4958) ASSAY INC LUDES 25-HYDROXYVITAM IN D2 AND D3. METHODOLOGY IS CHEMILUMINESCEN T IMMUNOASSAY. INTERPRETIVE RA NGES PEDIATRIC (<17 YEARS) . . . . . . . . . . . NG/ML 20-100ADULT: IN SUFFICIENT . . . . . . . . . . . . . . NG/ML <20 SUBOP TIMAL . . . . . . . . . . . . . . . NG/ML 20-29 OPT IMAL . . . . . . . . . . . . . . . . . NG/ML 30-100 UN LESS OTHERWISE INDIC ATED, ALL TESTING PERFORM [facility]. [address] [place] [address] LAB[address]ORY DIRE CTOR: Sarah SMALLWOOD. CLIA NUMBER [id number] CAP ACCREDITATION N O. [id number] COMPREHENSIVE METABOLIC [id number] 03:48:14 Test Item Value Reference Range Interpretation Comments GLUCOSE (test code = 85 MG/DL 70-99 2216) BUN (test code = 19 MG/DL 6-20 2207) CREATININE (test 1.00 MG/DL 0.60-1.30 code = 221) eGFR (2020 CKD-EPI) 72 ML/MIN/1.73 >60 (test code = 47341) CALC BUN/CREAT (test 19 RATIO 6-28 code = 2235) SODIUM (test code = 140 MEQ/L 549-361 8829) POTASSIUM (test code 4.5 MEQ/L 3.5-5.4 = 2227) CHLORIDE (test code 102 MEQ/L 95-107 = 2214) CARBON DIOXIDE (test 29 MEQ/L 19-31 code = 220) CALCIUM (test code = 9.5 MG/DL 8.5-10.5 2208) PROTEIN, TOTAL (test 6.6 G/DL 6.1-8.3 code = 2228) ALBUMIN (test code = 4.8 G/DL 3.5-5.2 2200) CALC GLOBULIN (test 1.8 G/DL 1.9-3.7 L code = 224) CALC A/G RATIO (test 2.7 RATIO 1.0-2.6 H code = 2233) BILIRUBIN, TOTAL 0.6 MG/DL See_Comment [Automated message] (test code = 2206) The syste m which generated this result transmit bello reference range : <=1.2. The refe rence range was not u sed to interpret th is result as normal/abnormal . ALKALINE PHOSPHATASE 47 U/L 40-113 (test code = 2203) AST (test code = 19 U/L 9-40 2217) ALT (test code = 17 U/L 5-40 2218) CBC W/AUTO DIFF WITH [id number] 03:06:39 Test Item Value Reference Range Interpretation Comments WBC (test code = 6.7 K/UL 3.5-11.0 1001) RBC (test code = 4.62 M/UL 3.80-5.40 1002) HEMOGLOBIN (test code 13.2 G/DL 11.5-15.5 = 1003) HEMATOCRIT (test code 39.0 % 34.0-45.0 = 1004) MCV (test code = 84.4 fL 80.0-99.0 1005) MCH (test code = 28.6 PG 25.0-33.0 1006) MCHC (test code = 33.8 G/DL 31.0-36.0 1007) RDW (test code = 12.3 % 11.5-15.0 1038) NEUTROPHILS (test 51.3 % code = 1008) LYMPHOCYTES (test 28.6 % code = 1010) MONOCYTES (test code 7.0 % = 1011) EOSINOPHILS (test 11.7 % code = 1012) BASOPHILS (test code 1.0 % = 1013) IMMATURE GRANULOCYTES 0.4 % (test code = 1036) NUCLEATED RBCS (test 0.0 /100 WBC'S See_Comment [Aut omated code = 1065) message] The sy stem which generated this result transmitted reference range : 0.0. The refere nce range was not u sed to interpret th is result as normal/abnormal . PLATELET COUNT (test 284 K/UL 130-400 code = 1015) ABSOLUTE NEUTROPHILS 3.41 K/UL 1.50-7.50 (test code = 1066) ABSOLUTE LYMPHOCYTES 1.91 K/UL 1.00-4.00 (test code = 1067) ABSOLUTE MONOCYTES 0.47 K/UL 0.20-1.00 (test code = 1068) ABSOLUTE EOSINOPHILS 0.78 K/UL 0.00-0.50 H (test code = 1040) ABSOLUTE BASOPHILS 0.07 K/UL 0.00-0.20 (test code = 1069) ABS IMMATURE 0.03 K/UL 0.00-0.10 GRANULOCYTES (test code = 1020) ABS NUCLEATED RBCS 0.00 K/UL 0.00-0.11 (test code = 69762) VITAMIN D, 25 [id number] 00:00:00 Test Item Value Reference Range Interpretation Comments VITAMIN D, 25 OH (test code = 4958) 52 NG/ML VITAMIN D, 25 [id number] 00:00:00 Test Item Value Reference Range Interpretation Comments VITAMIN D, 25 OH (test code = 4958) 52 NG/ML COMPREHENSIVE METABOLIC [id number] 00:00:00 Test Item Value Reference Range Interpretation Comments GLUCOSE (test code = 2217) 85 MG/DL BUN (test code = 2208) 19 MG/DL CREATININE (test code = 2214) 1.00 MG/DL eGFR (2020 CKD-EPI) (test code 72 ML/MIN/1.73 = 96696) CALC BUN/CREAT (test code = 19 RATIO 2235) SODIUM (test code = 2231) 140 MEQ/L POTASSIUM (test code = 2228) 4.5 MEQ/L CHLORIDE (test code = 2215) 102 MEQ/L CARBON DIOXIDE (test code = 29 MEQ/L 2206) CALCIUM (test code = 2209) 9.5 MG/DL PROTEIN, TOTAL (test code = 6.6 G/DL 2228) ALBUMIN (test code = 2201) 4.8 G/DL CALC GLOBULIN (test code = 1.8 G/DL 2240) CALC A/G RATIO (test code = 2.7 RATIO 2234) BILIRUBIN, TOTAL (test code = 0.6 MG/DL 2206) ALKALINE PHOSPHATASE (test 47 U/L code = 2204) AST (test code = 2218) 19 U/L ALT (test code = 2219) 17 U/L COMPREHENSIVE METABOLIC [id number] 00:00:00 Test Item Value Reference Range Interpretation Comments GLUCOSE (test code = 2217) 85 MG/DL BUN (test code = 2208) 19 MG/DL CREATININE (test code = 2214) 1.00 MG/DL eGFR (2020 CKD-EPI) (test code 72 ML/MIN/1.73 = 54412) CALC BUN/CREAT (test code = 19 RATIO 2235) SODIUM (test code = 2231) 140 MEQ/L POTASSIUM (test code = 2228) 4.5 MEQ/L CHLORIDE (test code = 2215) 102 MEQ/L CARBON DIOXIDE (test code = 29 MEQ/L 6) CALCIUM (test code = 2209) 9.5 MG/DL PROTEIN, TOTAL (test code = 6.6 G/DL 2228) ALBUMIN (test code = 2201) 4.8 G/DL CALC GLOBULIN (test code = 1.8 G/DL 2240) CALC A/G RATIO (test code = 2.7 RATIO 2234) BILIRUBIN, TOTAL (test code = 0.6 MG/DL 2206) ALKALINE PHOSPHATASE (test 47 U/L code = 2204) AST (test code = 2218) 19 U/L ALT (test code = 2219) 17 U/L CBC W/AUTO [id number] 00:00:00 Test Item Value Reference Range Interpretation Comments WBC (test code = 1001) 6.7 K/UL RBC (test code = 1002) 4.62 M/UL HEMOGLOBIN (test code = 1003) 13.2 G/DL HEMATOCRIT (test code = 1004) 39.0 % MCV (test code = 1005) 84.4 fL MCH (test code = 1006) 28.6 PG MCHC (test code = 1007) 33.8 G/DL RDW (test code = 1038) 12.3 % NEUTROPHILS (test code = 1008) 51.3 % LYMPHOCYTES (test code = 1010) 28.6 % MONOCYTES (test code = 1011) 7.0 % EOSINOPHILS (test code = 1012) 11.7 % BASOPHILS (test code = 1013) 1.0 % IMMATURE GRANULOCYTES (test 0.4 % code = 1036) NUCLEATED RBCS (test code = 0.0 /100WBC'S 1065) PLATELET COUNT (test code = 284 K/UL 1015) ABSOLUTE NEUTROPHILS (test code 3.41 K/UL = 1066) ABSOLUTE LYMPHOCYTES (test code 1.91 K/UL = 1067) ABSOLUTE MONOCYTES (test code = 0.47 K/UL 1068) ABSOLUTE EOSINOPHILS (test code 0.78 K/UL = 1040) ABSOLUTE BASOPHILS (test code = 0.07 K/UL 1069) ABS IMMATURE GRANULOCYTES (test 0.03 K/UL code = 1020) ABS NUCLEATED RBCS (test code = 0.00 K/UL 67324) CBC W/AUTO [id number] 00:00:00 Test Item Value Reference Range Interpretation Comments WBC (test code = 1001) 6.7 K/UL RBC (test code = 1002) 4.62 M/UL HEMOGLOBIN (test code = 1003) 13.2 G/DL HEMATOCRIT (test code = 1004) 39.0 % MCV (test code = 1005) 84.4 fL MCH (test code = 1006) 28.6 PG MCHC (test code = 1007) 33.8 G/DL RDW (test code = 1038) 12.3 % NEUTROPHILS (test code = 1008) 51.3 % LYMPHOCYTES (test code = 1010) 28.6 % MONOCYTES (test code = 1011) 7.0 % EOSINOPHILS (test code = 1012) 11.7 % BASOPHILS (test code = 1013) 1.0 % IMMATURE GRANULOCYTES (test 0.4 % code = 1036) NUCLEATED RBCS (test code = 0.0 /100WBC'S 1065) PLATELET COUNT (test code = 284 K/UL 1015) ABSOLUTE NEUTROPHILS (test code 3.41 K/UL = 1066) ABSOLUTE LYMPHOCYTES (test code 1.91 K/UL = 1067) ABSOLUTE MONOCYTES (test code = 0.47 K/UL 1068) ABSOLUTE EOSINOPHILS (test code 0.78 K/UL = 1040) ABSOLUTE BASOPHILS (test code = 0.07 K/UL 1069) ABS IMMATURE GRANULOCYTES (test 0.03 K/UL code = 1020) ABS NUCLEATED RBCS (test code = 0.00 K/UL 44830) CBC W/AUTO [id number] 00:00:00 Test Item Value Reference Range Interpretation Comments WBC (test code = 1001) 6.7 K/UL RBC (test code = 1002) 4.62 M/UL HEMOGLOBIN (test code = 1003) 13.2 G/DL HEMATOCRIT (test code = 1004) 39.0 % MCV (test code = 1005) 84.4 fL MCH (test code = 1006) 28.6 PG MCHC (test code = 1007) 33.8 G/DL RDW (test code = 1038) 12.3 % NEUTROPHILS (test code = 1008) 51.3 % LYMPHOCYTES (test code = 1010) 28.6 % MONOCYTES (test code = 1011) 7.0 % EOSINOPHILS (test code = 1012) 11.7 % BASOPHILS (test code = 1013) 1.0 % IMMATURE GRANULOCYTES (test 0.4 % code = 1036) NUCLEATED RBCS (test code = 0.0 /100WBC'S 1065) PLATELET COUNT (test code = 284 K/UL 1015) ABSOLUTE NEUTROPHILS (test code 3.41 K/UL = 1066) ABSOLUTE LYMPHOCYTES (test code 1.91 K/UL = 1067) ABSOLUTE MONOCYTES (test code = 0.47 K/UL 1068) ABSOLUTE EOSINOPHILS (test code 0.78 K/UL = 1040) ABSOLUTE BASOPHILS (test code = 0.07 K/UL 1069) ABS IMMATURE GRANULOCYTES (test 0.03 K/UL code = 1020) ABS NUCLEATED RBCS (test code = 0.00 K/UL 81323) VITAMIN D, 25 [id number] 00:00:00 Test Item Value Reference Range Interpretation Comments VITAMIN D, 25 OH (test code = 4958) 52 NG/ML VITAMIN D, 25 [id number] 00:00:00 Test Item Value Reference Range Interpretation Comments VITAMIN D, 25 OH (test code = 4958) 52 NG/ML COMPREHENSIVE METABOLIC [id number] 00:00:00 Test Item Value Reference Range Interpretation Comments GLUCOSE (test code = 2217) 85 MG/DL BUN (test code = 2208) 19 MG/DL CREATININE (test code = 2214) 1.00 MG/DL eGFR (2020 CKD-EPI) (test code 72 ML/MIN/1.73 = 70781) CALC BUN/CREAT (test code = 19 RATIO 2235) SODIUM (test code = 2231) 140 MEQ/L POTASSIUM (test code = 2228) 4.5 MEQ/L CHLORIDE (test code = 2215) 102 MEQ/L CARBON DIOXIDE (test code = 29 MEQ/L 2205) CALCIUM (test code = 2209) 9.5 MG/DL PROTEIN, TOTAL (test code = 6.6 G/DL 2228) ALBUMIN (test code = 2201) 4.8 G/DL CALC GLOBULIN (test code = 1.8 G/DL 2239) CALC A/G RATIO (test code = 2.7 RATIO 4) BILIRUBIN, TOTAL (test code = 0.6 MG/DL 2206) ALKALINE PHOSPHATASE (test 47 U/L code = 2204) AST (test code = 2218) 19 U/L ALT (test code = 2219) 17 U/L COMPREHENSIVE METABOLIC [id number] 00:00:00 Test Item Value Reference Range Interpretation Comments GLUCOSE (test code = 2217) 85 MG/DL BUN (test code = 2208) 19 MG/DL CREATININE (test code = 2214) 1.00 MG/DL eGFR (2020 CKD-EPI) (test code 72 ML/MIN/1.73 = 45169) CALC BUN/CREAT (test code = 19 RATIO 2235) SODIUM (test code = 2231) 140 MEQ/L POTASSIUM (test code = 2228) 4.5 MEQ/L CHLORIDE (test code = 2215) 102 MEQ/L CARBON DIOXIDE (test code = 29 MEQ/L 220) CALCIUM (test code = 2209) 9.5 MG/DL PROTEIN, TOTAL (test code = 6.6 G/DL 2229) ALBUMIN (test code = 2201) 4.8 G/DL CALC GLOBULIN (test code = 1.8 G/DL 2240) CALC A/G RATIO (test code = 2.7 RATIO 2234) BILIRUBIN, TOTAL (test code = 0.6 MG/DL 2207) ALKALINE PHOSPHATASE (test 47 U/L code = 2204) AST (test code = 2218) 19 U/L ALT (test code = 2219) 17 U/L CBC W/AUTO [id number] 00:00:00 Test Item Value Reference Range Interpretation Comments WBC (test code = 1001) 6.7 K/UL RBC (test code = 1002) 4.62 M/UL HEMOGLOBIN (test code = 1003) 13.2 G/DL HEMATOCRIT (test code = 1004) 39.0 % MCV (test code = 1005) 84.4 fL MCH (test code = 1006) 28.6 PG MCHC (test code = 1007) 33.8 G/DL RDW (test code = 1038) 12.3 % NEUTROPHILS (test code = 1008) 51.3 % LYMPHOCYTES (test code = 1010) 28.6 % MONOCYTES (test code = 1011) 7.0 % EOSINOPHILS (test code = 1012) 11.7 % BASOPHILS (test code = 1013) 1.0 % IMMATURE GRANULOCYTES (test 0.4 % code = 1036) NUCLEATED RBCS (test code = 0.0 /100WBC'S 1065) PLATELET COUNT (test code = 284 K/UL 1015) ABSOLUTE NEUTROPHILS (test code 3.41 K/UL = 1066) ABSOLUTE LYMPHOCYTES (test code 1.91 K/UL = 1067) ABSOLUTE MONOCYTES (test code = 0.47 K/UL 1068) ABSOLUTE EOSINOPHILS (test code 0.78 K/UL = 1040) ABSOLUTE BASOPHILS (test code = 0.07 K/UL 1069) ABS IMMATURE GRANULOCYTES (test 0.03 K/UL code = 1020) ABS NUCLEATED RBCS (test code = 0.00 K/UL 83089) CBC W/AUTO [id number] 00:00:00 Test Item Value Reference Range Interpretation Comments WBC (test code = 1001) 6.7 K/UL RBC (test code = 1002) 4.62 M/UL HEMOGLOBIN (test code = 1003) 13.2 G/DL HEMATOCRIT (test code = 1004) 39.0 % MCV (test code = 1005) 84.4 fL MCH (test code = 1006) 28.6 PG MCHC (test code = 1007) 33.8 G/DL RDW (test code = 1038) 12.3 % NEUTROPHILS (test code = 1008) 51.3 % LYMPHOCYTES (test code = 1010) 28.6 % MONOCYTES (test code = 1011) 7.0 % EOSINOPHILS (test code = 1012) 11.7 % BASOPHILS (test code = 1013) 1.0 % IMMATURE GRANULOCYTES (test 0.4 % code = 1036) NUCLEATED RBCS (test code = 0.0 /100WBC'S 1065) PLATELET COUNT (test code = 284 K/UL 1015) ABSOLUTE NEUTROPHILS (test code 3.41 K/UL = 1066) ABSOLUTE LYMPHOCYTES (test code 1.91 K/UL = 1067) ABSOLUTE MONOCYTES (test code = 0.47 K/UL 1068) ABSOLUTE EOSINOPHILS (test code 0.78 K/UL = 1040) ABSOLUTE BASOPHILS (test code = 0.07 K/UL 1069) ABS IMMATURE GRANULOCYTES (test 0.03 K/UL code = 1020) ABS NUCLEATED RBCS (test code = 0.00 K/UL 93901) CBC W/AUTO [id number] 00:00:00 Test Item Value Reference Range Interpretation Comments WBC (test code = 1001) 6.7 K/UL RBC (test code = 1002) 4.62 M/UL HEMOGLOBIN (test code = 1003) 13.2 G/DL HEMATOCRIT (test code = 1004) 39.0 % MCV (test code = 1005) 84.4 fL MCH (test code = 1006) 28.6 PG MCHC (test code = 1007) 33.8 G/DL RDW (test code = 1038) 12.3 % NEUTROPHILS (test code = 1008) 51.3 % LYMPHOCYTES (test code = 1010) 28.6 % MONOCYTES (test code = 1011) 7.0 % EOSINOPHILS (test code = 1012) 11.7 % BASOPHILS (test code = 1013) 1.0 % IMMATURE GRANULOCYTES (test 0.4 % code = 1036) NUCLEATED RBCS (test code = 0.0 /100WBC'S 1065) PLATELET COUNT (test code = 284 K/UL 1015) ABSOLUTE NEUTROPHILS (test code 3.41 K/UL = 1066) ABSOLUTE LYMPHOCYTES (test code 1.91 K/UL = 1067) ABSOLUTE MONOCYTES (test code = 0.47 K/UL 1068) ABSOLUTE EOSINOPHILS (test code 0.78 K/UL = 1040) ABSOLUTE BASOPHILS (test code = 0.07 K/UL 1069) ABS IMMATURE GRANULOCYTES (test 0.03 K/UL code = 1020) ABS NUCLEATED RBCS (test code = 0.00 K/UL 02287) VITAMIN D, 25 [id number] 00:00:00 Test Item Value Reference Range Interpretation Comments VITAMIN D, 25 OH (test code = 4958) 52 NG/ML VITAMIN D, 25 [id number] 00:00:00 Test Item Value Reference Range Interpretation Comments VITAMIN D, 25 OH (test code = 4958) 52 NG/ML COMPREHENSIVE METABOLIC [id number] 00:00:00 Test Item Value Reference Range Interpretation Comments GLUCOSE (test code = 2217) 85 MG/DL BUN (test code = 2208) 19 MG/DL CREATININE (test code = 2214) 1.00 MG/DL eGFR (2020 CKD-EPI) (test code 72 ML/MIN/1.73 = 43351) CALC BUN/CREAT (test code = 19 RATIO 2235) SODIUM (test code = 2231) 140 MEQ/L POTASSIUM (test code = 2228) 4.5 MEQ/L CHLORIDE (test code = 2215) 102 MEQ/L CARBON DIOXIDE (test code = 29 MEQ/L 2205) CALCIUM (test code = 2209) 9.5 MG/DL PROTEIN, TOTAL (test code = 6.6 G/DL 2228) ALBUMIN (test code = 2201) 4.8 G/DL CALC GLOBULIN (test code = 1.8 G/DL 2240) CALC A/G RATIO (test code = 2.7 RATIO 2234) BILIRUBIN, TOTAL (test code = 0.6 MG/DL 2206) ALKALINE PHOSPHATASE (test 47 U/L code = 2204) AST (test code = 2218) 19 U/L ALT (test code = 2219) 17 U/L COMPREHENSIVE METABOLIC [id number] 00:00:00 Test Item Value Reference Range Interpretation Comments GLUCOSE (test code = 2217) 85 MG/DL BUN (test code = 2208) 19 MG/DL CREATININE (test code = 2214) 1.00 MG/DL eGFR (2020 CKD-EPI) (test code 72 ML/MIN/1.73 = 69779) CALC BUN/CREAT (test code = 19 RATIO 2235) SODIUM (test code = 2231) 140 MEQ/L POTASSIUM (test code = 2228) 4.5 MEQ/L CHLORIDE (test code = 2215) 102 MEQ/L CARBON DIOXIDE (test code = 29 MEQ/L 2205) CALCIUM (test code = 2209) 9.5 MG/DL PROTEIN, TOTAL (test code = 6.6 G/DL 2228) ALBUMIN (test code = 220) 4.8 G/DL CALC GLOBULIN (test code = 1.8 G/DL 2239) CALC A/G RATIO (test code = 2.7 RATIO 2233) BILIRUBIN, TOTAL (test code = 0.6 MG/DL 2206) ALKALINE PHOSPHATASE (test 47 U/L code = 220) AST (test code = 2218) 19 U/L ALT (test code = 2219) 17 U/L CBC W/AUTO [id number] 00:00:00 Test Item Value Reference Range Interpretation Comments WBC (test code = 1001) 6.7 K/UL RBC (test code = 1002) 4.62 M/UL HEMOGLOBIN (test code = 1003) 13.2 G/DL HEMATOCRIT (test code = 1004) 39.0 % MCV (test code = 1005) 84.4 fL MCH (test code = 1006) 28.6 PG MCHC (test code = 1007) 33.8 G/DL RDW (test code = 1038) 12.3 % NEUTROPHILS (test code = 1008) 51.3 % LYMPHOCYTES (test code = 1010) 28.6 % MONOCYTES (test code = 1011) 7.0 % EOSINOPHILS (test code = 1012) 11.7 % BASOPHILS (test code = 1013) 1.0 % IMMATURE GRANULOCYTES (test 0.4 % code = 1036) NUCLEATED RBCS (test code = 0.0 /100WBC'S 1065) PLATELET COUNT (test code = 284 K/UL 1015) ABSOLUTE NEUTROPHILS (test code 3.41 K/UL = 1066) ABSOLUTE LYMPHOCYTES (test code 1.91 K/UL = 1067) ABSOLUTE MONOCYTES (test code = 0.47 K/UL 1068) ABSOLUTE EOSINOPHILS (test code 0.78 K/UL = 1040) ABSOLUTE BASOPHILS (test code = 0.07 K/UL 1069) ABS IMMATURE GRANULOCYTES (test 0.03 K/UL code = 1020) ABS NUCLEATED RBCS (test code = 0.00 K/UL 57554) CBC W/AUTO [id number] 00:00:00 Test Item Value Reference Range Interpretation Comments WBC (test code = 1001) 6.7 K/UL RBC (test code = 1002) 4.62 M/UL HEMOGLOBIN (test code = 1003) 13.2 G/DL HEMATOCRIT (test code = 1004) 39.0 % MCV (test code = 1005) 84.4 fL MCH (test code = 1006) 28.6 PG MCHC (test code = 1007) 33.8 G/DL RDW (test code = 1038) 12.3 % NEUTROPHILS (test code = 1008) 51.3 % LYMPHOCYTES (test code = 1010) 28.6 % MONOCYTES (test code = 1011) 7.0 % EOSINOPHILS (test code = 1012) 11.7 % BASOPHILS (test code = 1013) 1.0 % IMMATURE GRANULOCYTES (test 0.4 % code = 1036) NUCLEATED RBCS (test code = 0.0 /100WBC'S 1065) PLATELET COUNT (test code = 284 K/UL 1015) ABSOLUTE NEUTROPHILS (test code 3.41 K/UL = 1066) ABSOLUTE LYMPHOCYTES (test code 1.91 K/UL = 1067) ABSOLUTE MONOCYTES (test code = 0.47 K/UL 1068) ABSOLUTE EOSINOPHILS (test code 0.78 K/UL = 1040) ABSOLUTE BASOPHILS (test code = 0.07 K/UL 1069) ABS IMMATURE GRANULOCYTES (test 0.03 K/UL code = 1020) ABS NUCLEATED RBCS (test code = 0.00 K/UL 79952) CBC W/AUTO [id number] 00:00:00 Test Item Value Reference Range Interpretation Comments WBC (test code = 1001) 6.7 K/UL RBC (test code = 1002) 4.62 M/UL HEMOGLOBIN (test code = 1003) 13.2 G/DL HEMATOCRIT (test code = 1004) 39.0 % MCV (test code = 1005) 84.4 fL MCH (test code = 1006) 28.6 PG MCHC (test code = 1007) 33.8 G/DL RDW (test code = 1038) 12.3 % NEUTROPHILS (test code = 1008) 51.3 % LYMPHOCYTES (test code = 1010) 28.6 % MONOCYTES (test code = 1011) 7.0 % EOSINOPHILS (test code = 1012) 11.7 % BASOPHILS (test code = 1013) 1.0 % IMMATURE GRANULOCYTES (test 0.4 % code = 1036) NUCLEATED RBCS (test code = 0.0 /100WBC'S 1065) PLATELET COUNT (test code = 284 K/UL 1015) ABSOLUTE NEUTROPHILS (test code 3.41 K/UL = 1066) ABSOLUTE LYMPHOCYTES (test code 1.91 K/UL = 1067) ABSOLUTE MONOCYTES (test code = 0.47 K/UL 1068) ABSOLUTE EOSINOPHILS (test code 0.78 K/UL = 1040) ABSOLUTE BASOPHILS (test code = 0.07 K/UL 1069) ABS IMMATURE GRANULOCYTES (test 0.03 K/UL code = 1020) ABS NUCLEATED RBCS (test code = 0.00 K/UL 99419) [id number] 00:00:00 Test Item Value Reference Range Interpretation Comments TSH, THIRD GENERATION (test code 3.200 UIU/ML = 2821) [id number] 00:00:00 Test Item Value Reference Range Interpretation Comments TSH, THIRD GENERATION (test code 3.200 UIU/ML = 2821) VITAMIN D, 25 [id number] 00:00:00 Test Item Value Reference Range Interpretation Comments VITAMIN D, 25 OH (test code = 4958) 28 NG/ML VITAMIN D, 25 [id number] 00:00:00 Test Item Value Reference Range Interpretation Comments VITAMIN D, 25 OH (test code = 4958) 28 NG/ML COMPREHENSIVE METABOLIC [id number] 00:00:00 Test Item Value Reference Range Interpretation Comments GLUCOSE (test code = 2217) 93 MG/DL BUN (test code = 2208) 22 MG/DL CREATININE (test code = 2214) 1.00 MG/DL eGFR AMER. (test code 80 ML/MIN/1.73 = 25712) eGFR NON- AMER. (test 69 ML/MIN/1.73 code = 14856) CALC BUN/CREAT (test code = 22 RATIO 2235) SODIUM (test code = 2231) 140 MEQ/L POTASSIUM (test code = 2228) 4.9 MEQ/L CHLORIDE (test code = 2215) 102 MEQ/L CARBON DIOXIDE (test code = 26 MEQ/L 2206) CALCIUM (test code = 2209) 9.7 MG/DL PROTEIN, TOTAL (test code = 6.7 G/DL 2229) ALBUMIN (test code = 2201) 4.6 G/DL CALC GLOBULIN (test code = 2.1 G/DL 2240) CALC A/G RATIO (test code = 2.2 RATIO 2234) BILIRUBIN, TOTAL (test code = 0.3 MG/DL 2206) ALKALINE PHOSPHATASE (test 46 U/L code = 2204) AST (test code = 2218) 19 U/L ALT (test code = 2219) 28 U/L COMPREHENSIVE METABOLIC [id number] 00:00:00 Test Item Value Reference Range Interpretation Comments GLUCOSE (test code = 2217) 93 MG/DL BUN (test code = 2208) 22 MG/DL CREATININE (test code = 2214) 1.00 MG/DL eGFR AMER. (test code 80 ML/MIN/1.73 = 96327) eGFR NON- AMER. (test 69 ML/MIN/1.73 code = 87263) CALC BUN/CREAT (test code = 22 RATIO 2235) SODIUM (test code = 2231) 140 MEQ/L POTASSIUM (test code = 2228) 4.9 MEQ/L CHLORIDE (test code = 2215) 102 MEQ/L CARBON DIOXIDE (test code = 26 MEQ/L 2205) CALCIUM (test code = 2209) 9.7 MG/DL PROTEIN, TOTAL (test code = 6.7 G/DL 2229) ALBUMIN (test code = 2201) 4.6 G/DL CALC GLOBULIN (test code = 2.1 G/DL 2240) CALC A/G RATIO (test code = 2.2 RATIO 2234) BILIRUBIN, TOTAL (test code = 0.3 MG/DL 2206) ALKALINE PHOSPHATASE (test 46 U/L code = 2204) AST (test code = 2218) 19 U/L ALT (test code = 2219) 28 U/L [id number] 00:00:00 Test Item Value Reference Range Interpretation Comments TSH, THIRD GENERATION (test code 3.200 UIU/ML = 2821) [id number] 00:00:00 Test Item Value Reference Range Interpretation Comments TSH, THIRD GENERATION (test code 3.200 UIU/ML = 2821) [id number] 00:00:00 Test Item Value Reference Range Interpretation Comments TSH, THIRD GENERATION (test code 3.200 UIU/ML = 2821) VITAMIN D, 25 [id number] 00:00:00 Test Item Value Reference Range Interpretation Comments VITAMIN D, 25 OH (test code = 4958) 28 NG/ML VITAMIN D, 25 [id number] 00:00:00 Test Item Value Reference Range Interpretation Comments VITAMIN D, 25 OH (test code = 4958) 28 NG/ML COMPREHENSIVE METABOLIC [id number] 00:00:00 Test Item Value Reference Range Interpretation Comments GLUCOSE (test code = 2217) 93 MG/DL BUN (test code = 2208) 22 MG/DL CREATININE (test code = 2214) 1.00 MG/DL eGFR AMER. (test code 80 ML/MIN/1.73 = 82879) eGFR NON- AMER. (test 69 ML/MIN/1.73 code = 65810) CALC BUN/CREAT (test code = 22 RATIO 2235) SODIUM (test code = 2231) 140 MEQ/L POTASSIUM (test code = 2228) 4.9 MEQ/L CHLORIDE (test code = 2215) 102 MEQ/L CARBON DIOXIDE (test code = 26 MEQ/L 2205) CALCIUM (test code = 2209) 9.7 MG/DL PROTEIN, TOTAL (test code = 6.7 G/DL 2228) ALBUMIN (test code = 2201) 4.6 G/DL CALC GLOBULIN (test code = 2.1 G/DL 0) CALC A/G RATIO (test code = 2.2 RATIO 2234) BILIRUBIN, TOTAL (test code = 0.3 MG/DL 2206) ALKALINE PHOSPHATASE (test 46 U/L code = 2204) AST (test code = 2218) 19 U/L ALT (test code = 2219) 28 U/L COMPREHENSIVE METABOLIC [id number] 00:00:00 Test Item Value Reference Range Interpretation Comments GLUCOSE (test code = 2217) 93 MG/DL BUN (test code = 2208) 22 MG/DL CREATININE (test code = 2214) 1.00 MG/DL eGFR AMER. (test code 80 ML/MIN/1.73 = 92525) eGFR NON- AMER. (test 69 ML/MIN/1.73 code = 70559) CALC BUN/CREAT (test code = 22 RATIO 2235) SODIUM (test code = 2231) 140 MEQ/L POTASSIUM (test code = 2228) 4.9 MEQ/L CHLORIDE (test code = 2215) 102 MEQ/L CARBON DIOXIDE (test code = 26 MEQ/L 2205) CALCIUM (test code = 2209) 9.7 MG/DL PROTEIN, TOTAL (test code = 6.7 G/DL 2228) ALBUMIN (test code = 220) 4.6 G/DL CALC GLOBULIN (test code = 2.1 G/DL 2239) CALC A/G RATIO (test code = 2.2 RATIO 2233) BILIRUBIN, TOTAL (test code = 0.3 MG/DL 2206) ALKALINE PHOSPHATASE (test 46 U/L code = 2204) AST (test code = 2218) 19 U/L ALT (test code = 2219) 28 U/L [id number] 00:00:00 Test Item Value Reference Range Interpretation Comments TSH, THIRD GENERATION (test code 3.200 UIU/ML = 2821) [id number] 00:00:00 Test Item Value Reference Range Interpretation Comments TSH, THIRD GENERATION (test code 3.200 UIU/ML = 2821) [id number] 00:00:00 Test Item Value Reference Range Interpretation Comments TSH, THIRD GENERATION (test code 3.200 UIU/ML = 2821) VITAMIN D, 25 [id number] 00:00:00 Test Item Value Reference Range Interpretation Comments VITAMIN D, 25 OH (test code = 4958) 28 NG/ML VITAMIN D, 25 [id number] 00:00:00 Test Item Value Reference Range Interpretation Comments VITAMIN D, 25 OH (test code = 4958) 28 NG/ML COMPREHENSIVE METABOLIC [id number] 00:00:00 Test Item Value Reference Range Interpretation Comments GLUCOSE (test code = 2217) 93 MG/DL BUN (test code = 2208) 22 MG/DL CREATININE (test code = 2214) 1.00 MG/DL eGFR AMER. (test code 80 ML/MIN/1.73 = 88048) eGFR NON- AMER. (test 69 ML/MIN/1.73 code = 27683) CALC BUN/CREAT (test code = 22 RATIO 2235) SODIUM (test code = 2231) 140 MEQ/L POTASSIUM (test code = 2228) 4.9 MEQ/L CHLORIDE (test code = 2215) 102 MEQ/L CARBON DIOXIDE (test code = 26 MEQ/L 220) CALCIUM (test code = 2209) 9.7 MG/DL PROTEIN, TOTAL (test code = 6.7 G/DL 2228) ALBUMIN (test code = 2201) 4.6 G/DL CALC GLOBULIN (test code = 2.1 G/DL 2240) CALC A/G RATIO (test code = 2.2 RATIO 2234) BILIRUBIN, TOTAL (test code = 0.3 MG/DL 2206) ALKALINE PHOSPHATASE (test 46 U/L code = 2204) AST (test code = 2218) 19 U/L ALT (test code = 2219) 28 U/L COMPREHENSIVE METABOLIC [id number] 00:00:00 Test Item Value Reference Range Interpretation Comments GLUCOSE (test code = 2217) 93 MG/DL BUN (test code = 2208) 22 MG/DL CREATININE (test code = 2214) 1.00 MG/DL eGFR AMER. (test code 80 ML/MIN/1.73 = 14775) eGFR NON- AMER. (test 69 ML/MIN/1.73 code = 20432) CALC BUN/CREAT (test code = 22 RATIO 2235) SODIUM (test code = 2231) 140 MEQ/L POTASSIUM (test code = 2228) 4.9 MEQ/L CHLORIDE (test code = 2215) 102 MEQ/L CARBON DIOXIDE (test code = 26 MEQ/L 220) CALCIUM (test code = 2209) 9.7 MG/DL PROTEIN, TOTAL (test code = 6.7 G/DL 2228) ALBUMIN (test code = 2201) 4.6 G/DL CALC GLOBULIN (test code = 2.1 G/DL 2240) CALC A/G RATIO (test code = 2.2 RATIO 2234) BILIRUBIN, TOTAL (test code = 0.3 MG/DL 2206) ALKALINE PHOSPHATASE (test 46 U/L code = 2204) AST (test code = 2218) 19 U/L ALT (test code = 2219) 28 U/L [id number] 00:00:00 Test Item Value Reference Range Interpretation Comments TSH, THIRD GENERATION (test code 3.200 UIU/ML = 2821) URINE CULTURE, NO [id number] 00:00:00 Test Item Value Reference Range Interpretation Comments URINE CULTURE, NO SPECIMEN NUMBER: SENS (test code = [id number]) URINE CULTURE, NO [id number] 00:00:00 Test Item Value Reference Range Interpretation Comments URINE CULTURE, NO SPECIMEN NUMBER: SENS (test code = [id number]) URINE CULTURE, NO [id number] 00:00:00 Test Item Value Reference Range Interpretation Comments URINE CULTURE, NO SPECIMEN NUMBER: SENS (test code = [id number]) URINE CULTURE, NO [id number] 00:00:00 Test Item Value Reference Range Interpretation Comments URINE CULTURE, NO SPECIMEN NUMBER: SENS (test code = [id number]) URINE CULTURE, NO [id number] 00:00:00 Test Item Value Reference Range Interpretation Comments URINE CULTURE, NO SPECIMEN NUMBER: SENS (test code = [id number]) URINE CULTURE, NO [id number] 00:00:00 Test Item Value Reference Range Interpretation Comments URINE CULTURE, NO SPECIMEN NUMBER: SENS (test code = [id number]) VITAMIN D, 25 [id number] 00:00:00 Test Item Value Reference Range Interpretation Comments VITAMIN D, 25 OH (test code = 4958) 30 NG/ML VITAMIN D, 25 [id number] 00:00:00 Test Item Value Reference Range Interpretation Comments VITAMIN D, 25 OH (test code = 4958) 30 NG/ML LIPID [id number] 00:00:00 Test Item Value Reference Range Interpretation Comments CHOLESTEROL (test code = 2210) 147 MG/DL TRIGLYCERIDES (test code = 2232) 79 MG/DL HDL CHOLESTEROL (test code = 2220) 49 MG/DL CALC LDL CHOL (test code = 2237) 82 MG/DL RISK RATIO LDL/HDL (test code = 1.67 RATIO 2238) LIPID [id number] 00:00:00 Test Item Value Reference Range Interpretation Comments CHOLESTEROL (test code = 2210) 147 MG/DL TRIGLYCERIDES (test code = 2232) 79 MG/DL HDL CHOLESTEROL (test code = 2220) 49 MG/DL CALC LDL CHOL (test code = 2237) 82 MG/DL RISK RATIO LDL/HDL (test code = 1.67 RATIO 2238) COMPREHENSIVE METABOLIC [id number] 00:00:00 Test Item Value Reference Range Interpretation Comments GLUCOSE (test code = 2217) 88 MG/DL BUN (test code = 2208) 18 MG/DL CREATININE (test code = 2214) 1.04 MG/DL eGFR AMER. (test code 77 ML/MIN/1.73 = 32572) eGFR NON- AMER. (test 67 ML/MIN/1.73 code = 46317) CALC BUN/CREAT (test code = 17 RATIO 2235) SODIUM (test code = 2231) 138 MEQ/L POTASSIUM (test code = 2228) 4.4 MEQ/L CHLORIDE (test code = 2215) 103 MEQ/L CARBON DIOXIDE (test code = 24 MEQ/L 2205) CALCIUM (test code = 2209) 9.3 MG/DL PROTEIN, TOTAL (test code = 6.3 G/DL 2228) ALBUMIN (test code = 2201) 4.5 G/DL CALC GLOBULIN (test code = 1.8 G/DL 2240) CALC A/G RATIO (test code = 2.5 RATIO 2234) BILIRUBIN, TOTAL (test code = 0.2 MG/DL 2206) ALKALINE PHOSPHATASE (test 39 U/L code = 2204) AST (test code = 2218) 17 U/L ALT (test code = 2219) 16 U/L COMPREHENSIVE METABOLIC [id number] 00:00:00 Test Item Value Reference Range Interpretation Comments GLUCOSE (test code = 2217) 88 MG/DL BUN (test code = 2208) 18 MG/DL CREATININE (test code = 2214) 1.04 MG/DL eGFR AMER. (test code 77 ML/MIN/1.73 = 06848) eGFR NON- AMER. (test 67 ML/MIN/1.73 code = 80157) CALC BUN/CREAT (test code = 17 RATIO 2235) SODIUM (test code = 2231) 138 MEQ/L POTASSIUM (test code = 2228) 4.4 MEQ/L CHLORIDE (test code = 2215) 103 MEQ/L CARBON DIOXIDE (test code = 24 MEQ/L 2205) CALCIUM (test code = 2209) 9.3 MG/DL PROTEIN, TOTAL (test code = 6.3 G/DL 2228) ALBUMIN (test code = 2201) 4.5 G/DL CALC GLOBULIN (test code = 1.8 G/DL 2239) CALC A/G RATIO (test code = 2.5 RATIO 2233) BILIRUBIN, TOTAL (test code = 0.2 MG/DL 2206) ALKALINE PHOSPHATASE (test 39 U/L code = 220) AST (test code = 2218) 17 U/L ALT (test code = 2219) 16 U/L VITAMIN D, 25 [id number] 00:00:00 Test Item Value Reference Range Interpretation Comments VITAMIN D, 25 OH (test code = 4958) 30 NG/ML VITAMIN D, 25 [id number] 00:00:00 Test Item Value Reference Range Interpretation Comments VITAMIN D, 25 OH (test code = 4958) 30 NG/ML LIPID [id number] 00:00:00 Test Item Value Reference Range Interpretation Comments CHOLESTEROL (test code = 2210) 147 MG/DL TRIGLYCERIDES (test code = 2232) 79 MG/DL HDL CHOLESTEROL (test code = 2220) 49 MG/DL CALC LDL CHOL (test code = 2237) 82 MG/DL RISK RATIO LDL/HDL (test code = 1.67 RATIO 2238) LIPID [id number] 00:00:00 Test Item Value Reference Range Interpretation Comments CHOLESTEROL (test code = 2210) 147 MG/DL TRIGLYCERIDES (test code = 2232) 79 MG/DL HDL CHOLESTEROL (test code = 2220) 49 MG/DL CALC LDL CHOL (test code = 2237) 82 MG/DL RISK RATIO LDL/HDL (test code = 1.67 RATIO 2238) COMPREHENSIVE METABOLIC [id number] 00:00:00 Test Item Value Reference Range Interpretation Comments GLUCOSE (test code = 2217) 88 MG/DL BUN (test code = 2208) 18 MG/DL CREATININE (test code = 2214) 1.04 MG/DL eGFR AMER. (test code 77 ML/MIN/1.73 = 72970) eGFR NON- AMER. (test 67 ML/MIN/1.73 code = 91441) CALC BUN/CREAT (test code = 17 RATIO 2235) SODIUM (test code = 2231) 138 MEQ/L POTASSIUM (test code = 2228) 4.4 MEQ/L CHLORIDE (test code = 2215) 103 MEQ/L CARBON DIOXIDE (test code = 24 MEQ/L 2206) CALCIUM (test code = 2209) 9.3 MG/DL PROTEIN, TOTAL (test code = 6.3 G/DL 2228) ALBUMIN (test code = 2201) 4.5 G/DL CALC GLOBULIN (test code = 1.8 G/DL 2240) CALC A/G RATIO (test code = 2.5 RATIO 2234) BILIRUBIN, TOTAL (test code = 0.2 MG/DL 2206) ALKALINE PHOSPHATASE (test 39 U/L code = 220) AST (test code = 2218) 17 U/L ALT (test code = 2219) 16 U/L COMPREHENSIVE METABOLIC [id number] 00:00:00 Test Item Value Reference Range Interpretation Comments GLUCOSE (test code = 2217) 88 MG/DL BUN (test code = 2208) 18 MG/DL CREATININE (test code = 2214) 1.04 MG/DL eGFR AMER. (test code 77 ML/MIN/1.73 = 01425) eGFR NON- AMER. (test 67 ML/MIN/1.73 code = 73225) CALC BUN/CREAT (test code = 17 RATIO 2235) SODIUM (test code = 2231) 138 MEQ/L POTASSIUM (test code = 2228) 4.4 MEQ/L CHLORIDE (test code = 2215) 103 MEQ/L CARBON DIOXIDE (test code = 24 MEQ/L 2206) CALCIUM (test code = 2209) 9.3 MG/DL PROTEIN, TOTAL (test code = 6.3 G/DL 9) ALBUMIN (test code = 2201) 4.5 G/DL CALC GLOBULIN (test code = 1.8 G/DL 2240) CALC A/G RATIO (test code = 2.5 RATIO 2234) BILIRUBIN, TOTAL (test code = 0.2 MG/DL 2206) ALKALINE PHOSPHATASE (test 39 U/L code = 2204) AST (test code = 2218) 17 U/L ALT (test code = 2219) 16 U/L VITAMIN D, 25 [id number] 00:00:00 Test Item Value Reference Range Interpretation Comments VITAMIN D, 25 OH (test code = 4958) 30 NG/ML VITAMIN D, 25 [id number] 00:00:00 Test Item Value Reference Range Interpretation Comments VITAMIN D, 25 OH (test code = 4958) 30 NG/ML LIPID [id number] 00:00:00 Test Item Value Reference Range Interpretation Comments CHOLESTEROL (test code = 2210) 147 MG/DL TRIGLYCERIDES (test code = 2232) 79 MG/DL HDL CHOLESTEROL (test code = 2220) 49 MG/DL CALC LDL CHOL (test code = 2237) 82 MG/DL RISK RATIO LDL/HDL (test code = 1.67 RATIO 2238) LIPID [id number] 00:00:00 Test Item Value Reference Range Interpretation Comments CHOLESTEROL (test code = 2210) 147 MG/DL TRIGLYCERIDES (test code = 2232) 79 MG/DL HDL CHOLESTEROL (test code = 2220) 49 MG/DL CALC LDL CHOL (test code = 2237) 82 MG/DL RISK RATIO LDL/HDL (test code = 1.67 RATIO 2238) COMPREHENSIVE METABOLIC [id number] 00:00:00 Test Item Value Reference Range Interpretation Comments GLUCOSE (test code = 2217) 88 MG/DL BUN (test code = 2208) 18 MG/DL CREATININE (test code = 2214) 1.04 MG/DL eGFR AMER. (test code 77 ML/MIN/1.73 = 91245) eGFR NON- AMER. (test 67 ML/MIN/1.73 code = 18475) CALC BUN/CREAT (test code = 17 RATIO 2235) SODIUM (test code = 2231) 138 MEQ/L POTASSIUM (test code = 2228) 4.4 MEQ/L CHLORIDE (test code = 2215) 103 MEQ/L CARBON DIOXIDE (test code = 24 MEQ/L 2205) CALCIUM (test code = 2209) 9.3 MG/DL PROTEIN, TOTAL (test code = 6.3 G/DL 2228) ALBUMIN (test code = 2201) 4.5 G/DL CALC GLOBULIN (test code = 1.8 G/DL 2239) CALC A/G RATIO (test code = 2.5 RATIO 2234) BILIRUBIN, TOTAL (test code = 0.2 MG/DL 2206) ALKALINE PHOSPHATASE (test 39 U/L code = 2204) AST (test code = 2218) 17 U/L ALT (test code = 2219) 16 U/L COMPREHENSIVE METABOLIC [id number] 00:00:00 Test Item Value Reference Range Interpretation Comments GLUCOSE (test code = 2217) 88 MG/DL BUN (test code = 2208) 18 MG/DL CREATININE (test code = 2214) 1.04 MG/DL eGFR AMER. (test code 77 ML/MIN/1.73 = 25651) eGFR NON- AMER. (test 67 ML/MIN/1.73 code = 98263) CALC BUN/CREAT (test code = 17 RATIO 2235) SODIUM (test code = 2231) 138 MEQ/L POTASSIUM (test code = 2228) 4.4 MEQ/L CHLORIDE (test code = 2215) 103 MEQ/L CARBON DIOXIDE (test code = 24 MEQ/L 2205) CALCIUM (test code = 2209) 9.3 MG/DL PROTEIN, TOTAL (test code = 6.3 G/DL 2228) ALBUMIN (test code = 2201) 4.5 G/DL CALC GLOBULIN (test code = 1.8 G/DL 0) CALC A/G RATIO (test code = 2.5 RATIO 2233) BILIRUBIN, TOTAL (test code = 0.2 MG/DL 2206) ALKALINE PHOSPHATASE (test 39 U/L code = 2204) AST (test code = 2218) 17 U/L ALT (test code = 2219) 16 U/L CBC W/AUTO DIFF WITH PLATELETS [ADDED]2020-06-09 00:00:00 Test Item Value Reference Range Interpretation Comments WBC (test code = 1001) 5.8 K/UL RBC (test code = 1002) 4.47 M/UL HEMOGLOBIN (test code = 1003) 13.1 G/DL HEMATOCRIT (test code = 1004) 38.8 % MCV (test code = 1005) 86.8 fL MCH (test code = 1006) 29.3 PG MCHC (test code = 1007) 33.8 G/DL RDW (test code = 1038) 12.2 % NEUTROPHILS (test code = 1008) 58.0 % LYMPHOCYTES (test code = 1010) 28.0 % MONOCYTES (test code = 1011) 6.1 % EOSINOPHILS (test code = 1012) 6.9 % BASOPHILS (test code = 1013) 1.0 % PLATELET COUNT (test code = 1015) 226 K/UL CBC W/AUTO DIFF WITH PLATELETS [ADDED]2020-06-09 00:00:00 Test Item Value Reference Range Interpretation Comments WBC (test code = 1001) 5.8 K/UL RBC (test code = 1002) 4.47 M/UL HEMOGLOBIN (test code = 1003) 13.1 G/DL HEMATOCRIT (test code = 1004) 38.8 % MCV (test code = 1005) 86.8 fL MCH (test code = 1006) 29.3 PG MCHC (test code = 1007) 33.8 G/DL RDW (test code = 1038) 12.2 % NEUTROPHILS (test code = 1008) 58.0 % LYMPHOCYTES (test code = 1010) 28.0 % MONOCYTES (test code = 1011) 6.1 % EOSINOPHILS (test code = 1012) 6.9 % BASOPHILS (test code = 1013) 1.0 % PLATELET COUNT (test code = 1015) 226 K/UL CBC W/AUTO DIFF WITH PLATELETS [ADDED]2020-06-09 00:00:00 Test Item Value Reference Range Interpretation Comments WBC (test code = 1001) 5.8 K/UL RBC (test code = 1002) 4.47 M/UL HEMOGLOBIN (test code = 1003) 13.1 G/DL HEMATOCRIT (test code = 1004) 38.8 % MCV (test code = 1005) 86.8 fL MCH (test code = 1006) 29.3 PG MCHC (test code = 1007) 33.8 G/DL RDW (test code = 1038) 12.2 % NEUTROPHILS (test code = 1008) 58.0 % LYMPHOCYTES (test code = 1010) 28.0 % MONOCYTES (test code = 1011) 6.1 % EOSINOPHILS (test code = 1012) 6.9 % BASOPHILS (test code = 1013) 1.0 % PLATELET COUNT (test code = 1015) 226 K/UL CBC W/AUTO DIFF WITH PLATELETS [ADDED]2020-06-09 00:00:00 Test Item Value Reference Range Interpretation Comments WBC (test code = 1001) 5.8 K/UL RBC (test code = 1002) 4.47 M/UL HEMOGLOBIN (test code = 1003) 13.1 G/DL HEMATOCRIT (test code = 1004) 38.8 % MCV (test code = 1005) 86.8 fL MCH (test code = 1006) 29.3 PG MCHC (test code = 1007) 33.8 G/DL RDW (test code = 1038) 12.2 % NEUTROPHILS (test code = 1008) 58.0 % LYMPHOCYTES (test code = 1010) 28.0 % MONOCYTES (test code = 1011) 6.1 % EOSINOPHILS (test code = 1012) 6.9 % BASOPHILS (test code = 1013) 1.0 % PLATELET COUNT (test code = 1015) 226 K/UL CBC W/AUTO DIFF WITH PLATELETS [ADDED]2020-06-09 00:00:00 Test Item Value Reference Range Interpretation Comments WBC (test code = 1001) 5.8 K/UL RBC (test code = 1002) 4.47 M/UL HEMOGLOBIN (test code = 1003) 13.1 G/DL HEMATOCRIT (test code = 1004) 38.8 % MCV (test code = 1005) 86.8 fL MCH (test code = 1006) 29.3 PG MCHC (test code = 1007) 33.8 G/DL RDW (test code = 1038) 12.2 % NEUTROPHILS (test code = 1008) 58.0 % LYMPHOCYTES (test code = 1010) 28.0 % MONOCYTES (test code = 1011) 6.1 % EOSINOPHILS (test code = 1012) 6.9 % BASOPHILS (test code = 1013) 1.0 % PLATELET COUNT (test code = 1015) 226 K/UL CBC W/AUTO DIFF WITH PLATELETS [ADDED]2020-06-09 00:00:00 Test Item Value Reference Range Interpretation Comments WBC (test code = 1001) 5.8 K/UL RBC (test code = 1002) 4.47 M/UL HEMOGLOBIN (test code = 1003) 13.1 G/DL HEMATOCRIT (test code = 1004) 38.8 % MCV (test code = 1005) 86.8 fL MCH (test code = 1006) 29.3 PG MCHC (test code = 1007) 33.8 G/DL RDW (test code = 1038) 12.2 % NEUTROPHILS (test code = 1008) 58.0 % LYMPHOCYTES (test code = 1010) 28.0 % MONOCYTES (test code = 1011) 6.1 % EOSINOPHILS (test code = 1012) 6.9 % BASOPHILS (test code = 1013) 1.0 % PLATELET COUNT (test code = 1015) 226 K/UL CBC W/AUTO DIFF WITH PLATELETS [ADDED]2020-06-09 00:00:00 Test Item Value Reference Range Interpretation Comments WBC (test code = 1001) 5.8 K/UL RBC (test code = 1002) 4.47 M/UL HEMOGLOBIN (test code = 1003) 13.1 G/DL HEMATOCRIT (test code = 1004) 38.8 % MCV (test code = 1005) 86.8 fL MCH (test code = 1006) 29.3 PG MCHC (test code = 1007) 33.8 G/DL RDW (test code = 1038) 12.2 % NEUTROPHILS (test code = 1008) 58.0 % LYMPHOCYTES (test code = 1010) 28.0 % MONOCYTES (test code = 1011) 6.1 % EOSINOPHILS (test code = 1012) 6.9 % BASOPHILS (test code = 1013) 1.0 % PLATELET COUNT (test code = 1015) 226 K/UL CBC W/AUTO DIFF WITH PLATELETS [ADDED]2020-06-09 00:00:00 Test Item Value Reference Range Interpretation Comments WBC (test code = 1001) 5.8 K/UL RBC (test code = 1002) 4.47 M/UL HEMOGLOBIN (test code = 1003) 13.1 G/DL HEMATOCRIT (test code = 1004) 38.8 % MCV (test code = 1005) 86.8 fL MCH (test code = 1006) 29.3 PG MCHC (test code = 1007) 33.8 G/DL RDW (test code = 1038) 12.2 % NEUTROPHILS (test code = 1008) 58.0 % LYMPHOCYTES (test code = 1010) 28.0 % MONOCYTES (test code = 1011) 6.1 % EOSINOPHILS (test code = 1012) 6.9 % BASOPHILS (test code = 1013) 1.0 % PLATELET COUNT (test code = 1015) 226 K/UL CBC W/AUTO DIFF WITH PLATELETS [ADDED]2020-06-09 00:00:00 Test Item Value Reference Range Interpretation Comments WBC (test code = 1001) 5.8 K/UL RBC (test code = 1002) 4.47 M/UL HEMOGLOBIN (test code = 1003) 13.1 G/DL HEMATOCRIT (test code = 1004) 38.8 % MCV (test code = 1005) 86.8 fL MCH (test code = 1006) 29.3 PG MCHC (test code = 1007) 33.8 G/DL RDW (test code = 1038) 12.2 % NEUTROPHILS (test code = 1008) 58.0 % LYMPHOCYTES (test code = 1010) 28.0 % MONOCYTES (test code = 1011) 6.1 % EOSINOPHILS (test code = 1012) 6.9 % BASOPHILS (test code = 1013) 1.0 % PLATELET COUNT (test code = 1015) 226 K/UL SARS-CoV-2 (COVID-19) by RT-PCR (HIGH RISK)2020-03-06 00:00:00 Test Item Value Reference Range Interpretation Comments SARS-CoV-2 INTERPRETATION NEGATIVE (test code = 26449) SOURCE (test code = 97595) NASOPHARYNGEAL SARS-CoV-2 (COVID-19) by RT-PCR (HIGH RISK)2020-03-06 00:00:00 Test Item Value Reference Range Interpretation Comments SARS-CoV-2 INTERPRETATION NEGATIVE (test code = 51712) SOURCE (test code = 42714) NASOPHARYNGEAL SARS-CoV-2 (COVID-19) by RT-PCR (HIGH RISK)2020-03-06 00:00:00 Test Item Value Reference Range Interpretation Comments SARS-CoV-2 INTERPRETATION NEGATIVE (test code = 87103) SOURCE (test code = 53312) NASOPHARYNGEAL SARS-CoV-2 (COVID-19) by RT-PCR (HIGH RISK)2020-03-06 00:00:00 Test Item Value Reference Range Interpretation Comments SARS-CoV-2 INTERPRETATION NEGATIVE (test code = 44038) SOURCE (test code = 54452) NASOPHARYNGEAL SARS-CoV-2 (COVID-19) by RT-PCR (HIGH RISK)2020-03-06 00:00:00 Test Item Value Reference Range Interpretation Comments SARS-CoV-2 INTERPRETATION NEGATIVE (test code = 95786) SOURCE (test code = 99174) NASOPHARYNGEAL SARS-CoV-2 (COVID-19) by RT-PCR (HIGH RISK)2020-03-06 00:00:00 Test Item Value Reference Range Interpretation Comments SARS-CoV-2 INTERPRETATION NEGATIVE (test code = 29941) SOURCE (test code = 62669) NASOPHARYNGEAL VITAMIN D, 25 [id number] 00:00:00 Test Item Value Reference Range Interpretation Comments VITAMIN D, 25 OH (test code = 4958) 23 NG/ML VITAMIN D, 25 [id number] 00:00:00 Test Item Value Reference Range Interpretation Comments VITAMIN D, 25 OH (test code = 4958) 23 NG/ML VITAMIN D, 25 [id number] 00:00:00 Test Item Value Reference Range Interpretation Comments VITAMIN D, 25 OH (test code = 4958) 23 NG/ML VITAMIN D, 25 [id number] 00:00:00 Test Item Value Reference Range Interpretation Comments VITAMIN D, 25 OH (test code = 4958) 23 NG/ML VITAMIN D, 25 [id number] 00:00:00 Test Item Value Reference Range Interpretation Comments VITAMIN D, 25 OH (test code = 4958) 23 NG/ML VITAMIN D, 25 [id number] 00:00:00 Test Item Value Reference Range Interpretation Comments VITAMIN D, 25 OH (test code = 4958) 23 NG/ML COMPREHENSIVE METABOLIC [id number] 00:00:00 Test Item Value Reference Range Interpretation Comments GLUCOSE (test code = 2217) 97 MG/DL BUN (test code = 2208) 24 MG/DL CREATININE (test code = 2214) 1.05 MG/DL eGFR AMER. (test code 77 ML/MIN/1.73 = 43884) eGFR NON- AMER. (test 66 ML/MIN/1.73 code = 84154) CALC BUN/CREAT (test code = 23 RATIO 2235) SODIUM (test code = 2231) 142 MEQ/L POTASSIUM (test code = 2228) 4.8 MEQ/L CHLORIDE (test code = 2215) 104 MEQ/L CARBON DIOXIDE (test code = 24 MEQ/L 2205) CALCIUM (test code = 2209) 9.8 MG/DL PROTEIN, TOTAL (test code = 7.2 G/DL 2228) ALBUMIN (test code = 2201) 4.7 G/DL CALC GLOBULIN (test code = 2.5 G/DL 2239) CALC A/G RATIO (test code = 1.9 RATIO 2234) BILIRUBIN, TOTAL (test code = <0.2 MG/DL 2206) ALKALINE PHOSPHATASE (test 50 U/L code = 2204) AST (test code = 2218) 15 U/L ALT (test code = 2219) 24 U/L COMPREHENSIVE METABOLIC [id number] 00:00:00 Test Item Value Reference Range Interpretation Comments GLUCOSE (test code = 2217) 97 MG/DL BUN (test code = 2208) 24 MG/DL CREATININE (test code = 2214) 1.05 MG/DL eGFR AMER. (test code 77 ML/MIN/1.73 = 61083) eGFR NON- AMER. (test 66 ML/MIN/1.73 code = 34283) CALC BUN/CREAT (test code = 23 RATIO 2235) SODIUM (test code = 2231) 142 MEQ/L POTASSIUM (test code = 2228) 4.8 MEQ/L CHLORIDE (test code = 2215) 104 MEQ/L CARBON DIOXIDE (test code = 24 MEQ/L 2205) CALCIUM (test code = 2209) 9.8 MG/DL PROTEIN, TOTAL (test code = 7.2 G/DL 2228) ALBUMIN (test code = 2201) 4.7 G/DL CALC GLOBULIN (test code = 2.5 G/DL 2240) CALC A/G RATIO (test code = 1.9 RATIO 2234) BILIRUBIN, TOTAL (test code = <0.2 MG/DL 2206) ALKALINE PHOSPHATASE (test 50 U/L code = 2204) AST (test code = 2218) 15 U/L ALT (test code = 2219) 24 U/L PERNELL (ANTI-NUCLEAR AB) WITH REFLEX [id number] 00:00:00 Test Item Value Reference Range Interpretation Comments ANTI-NUCLEAR ANTIBODIES (test code = NEGATIVE 3506) PERNELL (ANTI-NUCLEAR AB) WITH REFLEX [id number] 00:00:00 Test Item Value Reference Range Interpretation Comments ANTI-NUCLEAR ANTIBODIES (test code = NEGATIVE 3506) CHLAMYDIA, AMPLIFIED, [id number] 00:00:00 Test Item Value Reference Range Interpretation Comments CHLAMYDIA, TMA (test code = 36240) NEGATIVE CHLAMYDIA, AMPLIFIED, [id number] 00:00:00 Test Item Value Reference Range Interpretation Comments CHLAMYDIA, TMA (test code = 74820) NEGATIVE GC, AMPLIFIED, [id number] 00:00:00 Test Item Value Reference Range Interpretation Comments GONORRHEA, TMA (test code = 65023) NEGATIVE GC, AMPLIFIED, [id number] 00:00:00 Test Item Value Reference Range Interpretation Comments GONORRHEA, TMA (test code = 13060) NEGATIVE HIV AB/AG COMBO RFLX [id number] 00:00:00 Test Item Value Reference Range Interpretation Comments HIV 1/2 4TH GEN, RFLX CONF (test NON-REACTIVE code = 3514) HIV AB/AG COMBO RFLX [id number] 00:00:00 Test Item Value Reference Range Interpretation Comments HIV 1/2 4TH GEN, RFLX CONF (test NON-REACTIVE code = 3514) [id number] 00:00:00 Test Item Value Reference Range Interpretation Comments RPR RESULT (test code = NON-REACTIVE 3501) RPR TITER (test code = 3500) NOT INDIC. TITER [id number] 00:00:00 Test Item Value Reference Range Interpretation Comments RPR RESULT (test code = NON-REACTIVE 3501) RPR TITER (test code = 3500) NOT INDIC. TITER [id number] 00:00:00 Test Item Value Reference Range Interpretation Comments RPR RESULT (test code = NON-REACTIVE 3501) RPR TITER (test code = 3500) NOT INDIC. TITER VITAMIN D, 25 [id number] 00:00:00 Test Item Value Reference Range Interpretation Comments VITAMIN D, 25 OH (test code = 4958) 20 NG/ML VITAMIN D, 25 [id number] 00:00:00 Test Item Value Reference Range Interpretation Comments VITAMIN D, 25 OH (test code = 4958) 20 NG/ML RHEUMATOID FACTOR, [id number] 00:00:00 Test Item Value Reference Range Interpretation Comments RHEUMATOID FACTOR, QUANT (test code <10 IU/ML = 3502) RHEUMATOID FACTOR, [id number] 00:00:00 Test Item Value Reference Range Interpretation Comments RHEUMATOID FACTOR, QUANT (test code <10 IU/ML = 3502) RHEUMATOID FACTOR, [id number] 00:00:00 Test Item Value Reference Range Interpretation Comments RHEUMATOID FACTOR, QUANT (test code <10 IU/ML = 3502) SEDIMENTATION [id number] 00:00:00 Test Item Value Reference Range Interpretation Comments SEDIMENTATION RATE (test code = 5 MM/HOUR 1017) SEDIMENTATION [id number] 00:00:00 Test Item Value Reference Range Interpretation Comments SEDIMENTATION RATE (test code = 5 MM/HOUR 1017) CBC W/AUTO [id number] 00:00:00 Test Item Value Reference Range Interpretation Comments WBC (test code = 1001) 7.2 K/UL RBC (test code = 1002) 4.71 M/UL HEMOGLOBIN (test code = 1003) 13.2 G/DL HEMATOCRIT (test code = 1004) 38.6 % MCV (test code = 1005) 82.0 fL MCH (test code = 1006) 28.0 PG MCHC (test code = 1007) 34.2 G/DL RDW (test code = 1038) 12.6 % NEUTROPHILS (test code = 1008) 54.8 % LYMPHOCYTES (test code = 1010) 29.9 % MONOCYTES (test code = 1011) 6.1 % EOSINOPHILS (test code = 1012) 8.1 % BASOPHILS (test code = 1013) 1.1 % PLATELET COUNT (test code = 1015) 241 K/UL CBC W/AUTO [id number] 00:00:00 Test Item Value Reference Range Interpretation Comments WBC (test code = 1001) 7.2 K/UL RBC (test code = 1002) 4.71 M/UL HEMOGLOBIN (test code = 1003) 13.2 G/DL HEMATOCRIT (test code = 1004) 38.6 % MCV (test code = 1005) 82.0 fL MCH (test code = 1006) 28.0 PG MCHC (test code = 1007) 34.2 G/DL RDW (test code = 1038) 12.6 % NEUTROPHILS (test code = 1008) 54.8 % LYMPHOCYTES (test code = 1010) 29.9 % MONOCYTES (test code = 1011) 6.1 % EOSINOPHILS (test code = 1012) 8.1 % BASOPHILS (test code = 1013) 1.1 % PLATELET COUNT (test code = 1015) 241 K/UL CBC W/AUTO [id number] 00:00:00 Test Item Value Reference Range Interpretation Comments WBC (test code = 1001) 7.2 K/UL RBC (test code = 1002) 4.71 M/UL HEMOGLOBIN (test code = 1003) 13.2 G/DL HEMATOCRIT (test code = 1004) 38.6 % MCV (test code = 1005) 82.0 fL MCH (test code = 1006) 28.0 PG MCHC (test code = 1007) 34.2 G/DL RDW (test code = 1038) 12.6 % NEUTROPHILS (test code = 1008) 54.8 % LYMPHOCYTES (test code = 1010) 29.9 % MONOCYTES (test code = 1011) 6.1 % EOSINOPHILS (test code = 1012) 8.1 % BASOPHILS (test code = 1013) 1.1 % PLATELET COUNT (test code = 1015) 241 K/UL COMPREHENSIVE METABOLIC [id number] 00:00:00 Test Item Value Reference Range Interpretation Comments GLUCOSE (test code = 2217) 97 MG/DL BUN (test code = 2208) 24 MG/DL CREATININE (test code = 2214) 1.05 MG/DL eGFR AMER. (test code 77 ML/MIN/1.73 = 23408) eGFR NON- AMER. (test 66 ML/MIN/1.73 code = 66529) CALC BUN/CREAT (test code = 23 RATIO 2235) SODIUM (test code = 2231) 142 MEQ/L POTASSIUM (test code = 2228) 4.8 MEQ/L CHLORIDE (test code = 2215) 104 MEQ/L CARBON DIOXIDE (test code = 24 MEQ/L 2205) CALCIUM (test code = 2209) 9.8 MG/DL PROTEIN, TOTAL (test code = 7.2 G/DL 2228) ALBUMIN (test code = 2201) 4.7 G/DL CALC GLOBULIN (test code = 2.5 G/DL 0) CALC A/G RATIO (test code = 1.9 RATIO 2234) BILIRUBIN, TOTAL (test code = <0.2 MG/DL 2206) ALKALINE PHOSPHATASE (test 50 U/L code = 2204) AST (test code = 2218) 15 U/L ALT (test code = 2219) 24 U/L COMPREHENSIVE METABOLIC [id number] 00:00:00 Test Item Value Reference Range Interpretation Comments GLUCOSE (test code = 2217) 97 MG/DL BUN (test code = 2208) 24 MG/DL CREATININE (test code = 2214) 1.05 MG/DL eGFR AMER. (test code 77 ML/MIN/1.73 = 83922) eGFR NON- AMER. (test 66 ML/MIN/1.73 code = 44749) CALC BUN/CREAT (test code = 23 RATIO 2235) SODIUM (test code = 2231) 142 MEQ/L POTASSIUM (test code = 2228) 4.8 MEQ/L CHLORIDE (test code = 2215) 104 MEQ/L CARBON DIOXIDE (test code = 24 MEQ/L 2205) CALCIUM (test code = 2209) 9.8 MG/DL PROTEIN, TOTAL (test code = 7.2 G/DL 2228) ALBUMIN (test code = 220) 4.7 G/DL CALC GLOBULIN (test code = 2.5 G/DL 2239) CALC A/G RATIO (test code = 1.9 RATIO 2233) BILIRUBIN, TOTAL (test code = <0.2 MG/DL 2206) ALKALINE PHOSPHATASE (test 50 U/L code = 220) AST (test code = 2218) 15 U/L ALT (test code = 2219) 24 U/L PERNELL (ANTI-NUCLEAR AB) WITH REFLEX [id number] 00:00:00 Test Item Value Reference Range Interpretation Comments ANTI-NUCLEAR ANTIBODIES (test code = NEGATIVE 3506) PERNELL (ANTI-NUCLEAR AB) WITH REFLEX [id number] 00:00:00 Test Item Value Reference Range Interpretation Comments ANTI-NUCLEAR ANTIBODIES (test code = NEGATIVE 3506) CHLAMYDIA, AMPLIFIED, [id number] 00:00:00 Test Item Value Reference Range Interpretation Comments CHLAMYDIA, TMA (test code = 27909) NEGATIVE CHLAMYDIA, AMPLIFIED, [id number] 00:00:00 Test Item Value Reference Range Interpretation Comments CHLAMYDIA, TMA (test code = 37328) NEGATIVE GC, AMPLIFIED, [id number] 00:00:00 Test Item Value Reference Range Interpretation Comments GONORRHEA, TMA (test code = 34900) NEGATIVE GC, AMPLIFIED, [id number] 00:00:00 Test Item Value Reference Range Interpretation Comments GONORRHEA, TMA (test code = 71782) NEGATIVE HIV AB/AG COMBO RFLX [id number] 00:00:00 Test Item Value Reference Range Interpretation Comments HIV 1/2 4TH GEN, RFLX CONF (test NON-REACTIVE code = 3514) HIV AB/AG COMBO RFLX [id number] 00:00:00 Test Item Value Reference Range Interpretation Comments HIV 1/2 4TH GEN, RFLX CONF (test NON-REACTIVE code = 3514) [id number] 00:00:00 Test Item Value Reference Range Interpretation Comments RPR RESULT (test code = NON-REACTIVE 3501) RPR TITER (test code = 3500) NOT INDIC. TITER [id number] 00:00:00 Test Item Value Reference Range Interpretation Comments RPR RESULT (test code = NON-REACTIVE 3501) RPR TITER (test code = 3500) NOT INDIC. TITER [id number] 00:00:00 Test Item Value Reference Range Interpretation Comments RPR RESULT (test code = NON-REACTIVE 3501) RPR TITER (test code = 3500) NOT INDIC. TITER VITAMIN D, 25 [id number] 00:00:00 Test Item Value Reference Range Interpretation Comments VITAMIN D, 25 OH (test code = 4958) 20 NG/ML VITAMIN D, 25 [id number] 00:00:00 Test Item Value Reference Range Interpretation Comments VITAMIN D, 25 OH (test code = 4958) 20 NG/ML RHEUMATOID FACTOR, [id number] 00:00:00 Test Item Value Reference Range Interpretation Comments RHEUMATOID FACTOR, QUANT (test code <10 IU/ML = 3502) RHEUMATOID FACTOR, [id number] 00:00:00 Test Item Value Reference Range Interpretation Comments RHEUMATOID FACTOR, QUANT (test code <10 IU/ML = 3502) RHEUMATOID FACTOR, [id number] 00:00:00 Test Item Value Reference Range Interpretation Comments RHEUMATOID FACTOR, QUANT (test code <10 IU/ML = 3502) SEDIMENTATION [id number] 00:00:00 Test Item Value Reference Range Interpretation Comments SEDIMENTATION RATE (test code = 5 MM/HOUR 1017) SEDIMENTATION [id number] 00:00:00 Test Item Value Reference Range Interpretation Comments SEDIMENTATION RATE (test code = 5 MM/HOUR 1017) CBC W/AUTO [id number] 00:00:00 Test Item Value Reference Range Interpretation Comments WBC (test code = 1001) 7.2 K/UL RBC (test code = 1002) 4.71 M/UL HEMOGLOBIN (test code = 1003) 13.2 G/DL HEMATOCRIT (test code = 1004) 38.6 % MCV (test code = 1005) 82.0 fL MCH (test code = 1006) 28.0 PG MCHC (test code = 1007) 34.2 G/DL RDW (test code = 1038) 12.6 % NEUTROPHILS (test code = 1008) 54.8 % LYMPHOCYTES (test code = 1010) 29.9 % MONOCYTES (test code = 1011) 6.1 % EOSINOPHILS (test code = 1012) 8.1 % BASOPHILS (test code = 1013) 1.1 % PLATELET COUNT (test code = 1015) 241 K/UL CBC W/AUTO [id number] 00:00:00 Test Item Value Reference Range Interpretation Comments WBC (test code = 1001) 7.2 K/UL RBC (test code = 1002) 4.71 M/UL HEMOGLOBIN (test code = 1003) 13.2 G/DL HEMATOCRIT (test code = 1004) 38.6 % MCV (test code = 1005) 82.0 fL MCH (test code = 1006) 28.0 PG MCHC (test code = 1007) 34.2 G/DL RDW (test code = 1038) 12.6 % NEUTROPHILS (test code = 1008) 54.8 % LYMPHOCYTES (test code = 1010) 29.9 % MONOCYTES (test code = 1011) 6.1 % EOSINOPHILS (test code = 1012) 8.1 % BASOPHILS (test code = 1013) 1.1 % PLATELET COUNT (test code = 1015) 241 K/UL CBC W/AUTO [id number] 00:00:00 Test Item Value Reference Range Interpretation Comments WBC (test code = 1001) 7.2 K/UL RBC (test code = 1002) 4.71 M/UL HEMOGLOBIN (test code = 1003) 13.2 G/DL HEMATOCRIT (test code = 1004) 38.6 % MCV (test code = 1005) 82.0 fL MCH (test code = 1006) 28.0 PG MCHC (test code = 1007) 34.2 G/DL RDW (test code = 1038) 12.6 % NEUTROPHILS (test code = 1008) 54.8 % LYMPHOCYTES (test code = 1010) 29.9 % MONOCYTES (test code = 1011) 6.1 % EOSINOPHILS (test code = 1012) 8.1 % BASOPHILS (test code = 1013) 1.1 % PLATELET COUNT (test code = 1015) 241 K/UL COMPREHENSIVE METABOLIC [id number] 00:00:00 Test Item Value Reference Range Interpretation Comments GLUCOSE (test code = 2217) 97 MG/DL BUN (test code = 2208) 24 MG/DL CREATININE (test code = 2214) 1.05 MG/DL eGFR AMER. (test code 77 ML/MIN/1.73 = 58500) eGFR NON- AMER. (test 66 ML/MIN/1.73 code = 95932) CALC BUN/CREAT (test code = 23 RATIO 2235) SODIUM (test code = 2231) 142 MEQ/L POTASSIUM (test code = 2228) 4.8 MEQ/L CHLORIDE (test code = 2215) 104 MEQ/L CARBON DIOXIDE (test code = 24 MEQ/L 2205) CALCIUM (test code = 2209) 9.8 MG/DL PROTEIN, TOTAL (test code = 7.2 G/DL 2228) ALBUMIN (test code = 2201) 4.7 G/DL CALC GLOBULIN (test code = 2.5 G/DL 2240) CALC A/G RATIO (test code = 1.9 RATIO 2234) BILIRUBIN, TOTAL (test code = <0.2 MG/DL 2206) ALKALINE PHOSPHATASE (test 50 U/L code = 2204) AST (test code = 2218) 15 U/L ALT (test code = 2219) 24 U/L COMPREHENSIVE METABOLIC [id number] 00:00:00 Test Item Value Reference Range Interpretation Comments GLUCOSE (test code = 2217) 97 MG/DL BUN (test code = 2208) 24 MG/DL CREATININE (test code = 2214) 1.05 MG/DL eGFR AMER. (test code 77 ML/MIN/1.73 = 14657) eGFR NON- AMER. (test 66 ML/MIN/1.73 code = 86476) CALC BUN/CREAT (test code = 23 RATIO 2235) SODIUM (test code = 2231) 142 MEQ/L POTASSIUM (test code = 2228) 4.8 MEQ/L CHLORIDE (test code = 2215) 104 MEQ/L CARBON DIOXIDE (test code = 24 MEQ/L 2205) CALCIUM (test code = 2209) 9.8 MG/DL PROTEIN, TOTAL (test code = 7.2 G/DL 2228) ALBUMIN (test code = 2201) 4.7 G/DL CALC GLOBULIN (test code = 2.5 G/DL 2239) CALC A/G RATIO (test code = 1.9 RATIO 2233) BILIRUBIN, TOTAL (test code = <0.2 MG/DL 2206) ALKALINE PHOSPHATASE (test 50 U/L code = 220) AST (test code = 2218) 15 U/L ALT (test code = 221) 24 U/L PERNELL (ANTI-NUCLEAR AB) WITH REFLEX [id number] 00:00:00 Test Item Value Reference Range Interpretation Comments ANTI-NUCLEAR ANTIBODIES (test code = NEGATIVE 3506) PERNELL (ANTI-NUCLEAR AB) WITH REFLEX [id number] 00:00:00 Test Item Value Reference Range Interpretation Comments ANTI-NUCLEAR ANTIBODIES (test code = NEGATIVE 3506) CHLAMYDIA, AMPLIFIED, [id number] 00:00:00 Test Item Value Reference Range Interpretation Comments CHLAMYDIA, TMA (test code = 04556) NEGATIVE CHLAMYDIA, AMPLIFIED, [id number] 00:00:00 Test Item Value Reference Range Interpretation Comments CHLAMYDIA, TMA (test code = 72830) NEGATIVE GC, AMPLIFIED, [id number] 00:00:00 Test Item Value Reference Range Interpretation Comments GONORRHEA, TMA (test code = 82693) NEGATIVE GC, AMPLIFIED, [id number] 00:00:00 Test Item Value Reference Range Interpretation Comments GONORRHEA, TMA (test code = 99181) NEGATIVE HIV AB/AG COMBO RFLX [id number] 00:00:00 Test Item Value Reference Range Interpretation Comments HIV 1/2 4TH GEN, RFLX CONF (test NON-REACTIVE code = 3514) HIV AB/AG COMBO RFLX [id number] 00:00:00 Test Item Value Reference Range Interpretation Comments HIV 1/2 4TH GEN, RFLX CONF (test NON-REACTIVE code = 3514) [id number] 00:00:00 Test Item Value Reference Range Interpretation Comments RPR RESULT (test code = NON-REACTIVE 3501) RPR TITER (test code = 3500) NOT INDIC. TITER [id number] 00:00:00 Test Item Value Reference Range Interpretation Comments RPR RESULT (test code = NON-REACTIVE 3501) RPR TITER (test code = 3500) NOT INDIC. TITER [id number] 00:00:00 Test Item Value Reference Range Interpretation Comments RPR RESULT (test code = NON-REACTIVE 3501) RPR TITER (test code = 3500) NOT INDIC. TITER VITAMIN D, 25 [id number] 00:00:00 Test Item Value Reference Range Interpretation Comments VITAMIN D, 25 OH (test code = 4958) 20 NG/ML VITAMIN D, 25 [id number] 00:00:00 Test Item Value Reference Range Interpretation Comments VITAMIN D, 25 OH (test code = 4958) 20 NG/ML RHEUMATOID FACTOR, [id number] 00:00:00 Test Item Value Reference Range Interpretation Comments RHEUMATOID FACTOR, QUANT (test code <10 IU/ML = 3502) RHEUMATOID FACTOR, [id number] 00:00:00 Test Item Value Reference Range Interpretation Comments RHEUMATOID FACTOR, QUANT (test code <10 IU/ML = 3502) RHEUMATOID FACTOR, [id number] 00:00:00 Test Item Value Reference Range Interpretation Comments RHEUMATOID FACTOR, QUANT (test code <10 IU/ML = 3502) SEDIMENTATION [id number] 00:00:00 Test Item Value Reference Range Interpretation Comments SEDIMENTATION RATE (test code = 5 MM/HOUR 1017) SEDIMENTATION [id number] 00:00:00 Test Item Value Reference Range Interpretation Comments SEDIMENTATION RATE (test code = 5 MM/HOUR 1017) CBC W/AUTO [id number] 00:00:00 Test Item Value Reference Range Interpretation Comments WBC (test code = 1001) 7.2 K/UL RBC (test code = 1002) 4.71 M/UL HEMOGLOBIN (test code = 1003) 13.2 G/DL HEMATOCRIT (test code = 1004) 38.6 % MCV (test code = 1005) 82.0 fL MCH (test code = 1006) 28.0 PG MCHC (test code = 1007) 34.2 G/DL RDW (test code = 1038) 12.6 % NEUTROPHILS (test code = 1008) 54.8 % LYMPHOCYTES (test code = 1010) 29.9 % MONOCYTES (test code = 1011) 6.1 % EOSINOPHILS (test code = 1012) 8.1 % BASOPHILS (test code = 1013) 1.1 % PLATELET COUNT (test code = 1015) 241 K/UL CBC W/AUTO [id number] 00:00:00 Test Item Value Reference Range Interpretation Comments WBC (test code = 1001) 7.2 K/UL RBC (test code = 1002) 4.71 M/UL HEMOGLOBIN (test code = 1003) 13.2 G/DL HEMATOCRIT (test code = 1004) 38.6 % MCV (test code = 1005) 82.0 fL MCH (test code = 1006) 28.0 PG MCHC (test code = 1007) 34.2 G/DL RDW (test code = 1038) 12.6 % NEUTROPHILS (test code = 1008) 54.8 % LYMPHOCYTES (test code = 1010) 29.9 % MONOCYTES (test code = 1011) 6.1 % EOSINOPHILS (test code = 1012) 8.1 % BASOPHILS (test code = 1013) 1.1 % PLATELET COUNT (test code = 1015) 241 K/UL CBC W/AUTO [id number] 00:00:00 Test Item Value Reference Range Interpretation Comments WBC (test code = 1001) 7.2 K/UL RBC (test code = 1002) 4.71 M/UL HEMOGLOBIN (test code = 1003) 13.2 G/DL HEMATOCRIT (test code = 1004) 38.6 % MCV (test code = 1005) 82.0 fL MCH (test code = 1006) 28.0 PG MCHC (test code = 1007) 34.2 G/DL RDW (test code = 1038) 12.6 % NEUTROPHILS (test code = 1008) 54.8 % LYMPHOCYTES (test code = 1010) 29.9 % MONOCYTES (test code = 1011) 6.1 % EOSINOPHILS (test code = 1012) 8.1 % BASOPHILS (test code = 1013) 1.1 % PLATELET COUNT (test code = 1015) 241 K/UL LIPID [id number] 00:00:00 Test Item Value Reference Range Interpretation Comments CHOLESTEROL (test code = 2210) 133 MG/DL TRIGLYCERIDES (test code = 2232) 144 MG/DL HDL CHOLESTEROL (test code = 2220) 42 MG/DL CALC LDL CHOL (test code = 2237) 62 MG/DL RISK RATIO LDL/HDL (test code = 1.48 RATIO 2238) COMPREHENSIVE METABOLIC [id number] 00:00:00 Test Item Value Reference Range Interpretation Comments GLUCOSE (test code = 2217) 83 MG/DL BUN (test code = 2208) 21 MG/DL CREATININE (test code = 2214) 1.00 MG/DL eGFR AMER. (test code 82 ML/MIN/1.73 = 36469) eGFR NON- AMER. (test 70 ML/MIN/1.73 code = 12503) CALC BUN/CREAT (test code = 21 RATIO 2235) SODIUM (test code = 2231) 139 MEQ/L POTASSIUM (test code = 2228) 4.8 MEQ/L CHLORIDE (test code = 2215) 102 MEQ/L CARBON DIOXIDE (test code = 24 MEQ/L 2205) CALCIUM (test code = 2209) 9.4 MG/DL PROTEIN, TOTAL (test code = 6.9 G/DL 2228) ALBUMIN (test code = 2201) 4.8 G/DL CALC GLOBULIN (test code = 2.1 G/DL 2239) CALC A/G RATIO (test code = 2.3 RATIO 4) BILIRUBIN, TOTAL (test code = 0.3 MG/DL 2206) ALKALINE PHOSPHATASE (test 51 U/L code = 2204) AST (test code = 2218) 14 U/L ALT (test code = 2219) 16 U/L COMPREHENSIVE METABOLIC [id number] 00:00:00 Test Item Value Reference Range Interpretation Comments GLUCOSE (test code = 2217) 83 MG/DL BUN (test code = 2208) 21 MG/DL CREATININE (test code = 2214) 1.00 MG/DL eGFR AMER. (test code 82 ML/MIN/1.73 = 77662) eGFR NON- AMER. (test 70 ML/MIN/1.73 code = 87105) CALC BUN/CREAT (test code = 21 RATIO 2235) SODIUM (test code = 2231) 139 MEQ/L POTASSIUM (test code = 2228) 4.8 MEQ/L CHLORIDE (test code = 2215) 102 MEQ/L CARBON DIOXIDE (test code = 24 MEQ/L 2205) CALCIUM (test code = 2209) 9.4 MG/DL PROTEIN, TOTAL (test code = 6.9 G/DL 2228) ALBUMIN (test code = 2201) 4.8 G/DL CALC GLOBULIN (test code = 2.1 G/DL 0) CALC A/G RATIO (test code = 2.3 RATIO 4) BILIRUBIN, TOTAL (test code = 0.3 MG/DL 2206) ALKALINE PHOSPHATASE (test 51 U/L code = 2204) AST (test code = 2218) 14 U/L ALT (test code = 2219) 16 U/L [id number] 00:00:00 Test Item Value Reference Range Interpretation Comments TSH, THIRD GENERATION (test code 1.320 UIU/ML = 2821) [id number] 00:00:00 Test Item Value Reference Range Interpretation Comments TSH, THIRD GENERATION (test code 1.320 UIU/ML = 2821) [id number] 00:00:00 Test Item Value Reference Range Interpretation Comments TSH, THIRD GENERATION (test code 1.320 UIU/ML = 2821) CBC W/AUTO [id number] 00:00:00 Test Item Value Reference Range Interpretation Comments WBC (test code = 1001) 7.9 K/UL RBC (test code = 1002) 4.62 M/UL HEMOGLOBIN (test code = 1003) 13.0 G/DL HEMATOCRIT (test code = 1004) 38.2 % MCV (test code = 1005) 82.7 fL MCH (test code = 1006) 28.1 PG MCHC (test code = 1007) 34.0 G/DL RDW (test code = 1038) 12.2 % NEUTROPHILS (test code = 1008) 59.5 % LYMPHOCYTES (test code = 1010) 26.6 % MONOCYTES (test code = 1011) 6.2 % EOSINOPHILS (test code = 1012) 6.4 % BASOPHILS (test code = 1013) 1.3 % PLATELET COUNT (test code = 1015) 277 K/UL CBC W/AUTO [id number] 00:00:00 Test Item Value Reference Range Interpretation Comments WBC (test code = 1001) 7.9 K/UL RBC (test code = 1002) 4.62 M/UL HEMOGLOBIN (test code = 1003) 13.0 G/DL HEMATOCRIT (test code = 1004) 38.2 % MCV (test code = 1005) 82.7 fL MCH (test code = 1006) 28.1 PG MCHC (test code = 1007) 34.0 G/DL RDW (test code = 1038) 12.2 % NEUTROPHILS (test code = 1008) 59.5 % LYMPHOCYTES (test code = 1010) 26.6 % MONOCYTES (test code = 1011) 6.2 % EOSINOPHILS (test code = 1012) 6.4 % BASOPHILS (test code = 1013) 1.3 % PLATELET COUNT (test code = 1015) 277 K/UL CBC W/AUTO [id number] 00:00:00 Test Item Value Reference Range Interpretation Comments WBC (test code = 1001) 7.9 K/UL RBC (test code = 1002) 4.62 M/UL HEMOGLOBIN (test code = 1003) 13.0 G/DL HEMATOCRIT (test code = 1004) 38.2 % MCV (test code = 1005) 82.7 fL MCH (test code = 1006) 28.1 PG MCHC (test code = 1007) 34.0 G/DL RDW (test code = 1038) 12.2 % NEUTROPHILS (test code = 1008) 59.5 % LYMPHOCYTES (test code = 1010) 26.6 % MONOCYTES (test code = 1011) 6.2 % EOSINOPHILS (test code = 1012) 6.4 % BASOPHILS (test code = 1013) 1.3 % PLATELET COUNT (test code = 1015) 277 K/UL LIPID [id number] 00:00:00 Test Item Value Reference Range Interpretation Comments CHOLESTEROL (test code = 2210) 133 MG/DL TRIGLYCERIDES (test code = 2232) 144 MG/DL HDL CHOLESTEROL (test code = 2220) 42 MG/DL CALC LDL CHOL (test code = 2237) 62 MG/DL RISK RATIO LDL/HDL (test code = 1.48 RATIO 2238) LIPID [id number] 00:00:00 Test Item Value Reference Range Interpretation Comments CHOLESTEROL (test code = 2210) 133 MG/DL TRIGLYCERIDES (test code = 2232) 144 MG/DL HDL CHOLESTEROL (test code = 2220) 42 MG/DL CALC LDL CHOL (test code = 2237) 62 MG/DL RISK RATIO LDL/HDL (test code = 1.48 RATIO 2238) COMPREHENSIVE METABOLIC [id number] 00:00:00 Test Item Value Reference Range Interpretation Comments GLUCOSE (test code = 2217) 83 MG/DL BUN (test code = 2208) 21 MG/DL CREATININE (test code = 2214) 1.00 MG/DL eGFR AMER. (test code 82 ML/MIN/1.73 = 74210) eGFR NON- AMER. (test 70 ML/MIN/1.73 code = 60504) CALC BUN/CREAT (test code = 21 RATIO 2235) SODIUM (test code = 2231) 139 MEQ/L POTASSIUM (test code = 2228) 4.8 MEQ/L CHLORIDE (test code = 2215) 102 MEQ/L CARBON DIOXIDE (test code = 24 MEQ/L 220) CALCIUM (test code = 2209) 9.4 MG/DL PROTEIN, TOTAL (test code = 6.9 G/DL 2228) ALBUMIN (test code = 2201) 4.8 G/DL CALC GLOBULIN (test code = 2.1 G/DL 2239) CALC A/G RATIO (test code = 2.3 RATIO 2233) BILIRUBIN, TOTAL (test code = 0.3 MG/DL 2206) ALKALINE PHOSPHATASE (test 51 U/L code = 2204) AST (test code = 2218) 14 U/L ALT (test code = 2219) 16 U/L COMPREHENSIVE METABOLIC [id number] 00:00:00 Test Item Value Reference Range Interpretation Comments GLUCOSE (test code = 2217) 83 MG/DL BUN (test code = 2208) 21 MG/DL CREATININE (test code = 2214) 1.00 MG/DL eGFR AMER. (test code 82 ML/MIN/1.73 = 31218) eGFR NON- AMER. (test 70 ML/MIN/1.73 code = 00561) CALC BUN/CREAT (test code = 21 RATIO 2235) SODIUM (test code = 2231) 139 MEQ/L POTASSIUM (test code = 2228) 4.8 MEQ/L CHLORIDE (test code = 2215) 102 MEQ/L CARBON DIOXIDE (test code = 24 MEQ/L 220) CALCIUM (test code = 2209) 9.4 MG/DL PROTEIN, TOTAL (test code = 6.9 G/DL 2228) ALBUMIN (test code = 2201) 4.8 G/DL CALC GLOBULIN (test code = 2.1 G/DL 2240) CALC A/G RATIO (test code = 2.3 RATIO 2234) BILIRUBIN, TOTAL (test code = 0.3 MG/DL 220) ALKALINE PHOSPHATASE (test 51 U/L code = 2204) AST (test code = 2218) 14 U/L ALT (test code = 2219) 16 U/L [id number] 00:00:00 Test Item Value Reference Range Interpretation Comments TSH, THIRD GENERATION (test code 1.320 UIU/ML = 2821) [id number] 00:00:00 Test Item Value Reference Range Interpretation Comments TSH, THIRD GENERATION (test code 1.320 UIU/ML = 2821) [id number] 00:00:00 Test Item Value Reference Range Interpretation Comments TSH, THIRD GENERATION (test code 1.320 UIU/ML = 2821) CBC W/AUTO [id number] 00:00:00 Test Item Value Reference Range Interpretation Comments WBC (test code = 1001) 7.9 K/UL RBC (test code = 1002) 4.62 M/UL HEMOGLOBIN (test code = 1003) 13.0 G/DL HEMATOCRIT (test code = 1004) 38.2 % MCV (test code = 1005) 82.7 fL MCH (test code = 1006) 28.1 PG MCHC (test code = 1007) 34.0 G/DL RDW (test code = 1038) 12.2 % NEUTROPHILS (test code = 1008) 59.5 % LYMPHOCYTES (test code = 1010) 26.6 % MONOCYTES (test code = 1011) 6.2 % EOSINOPHILS (test code = 1012) 6.4 % BASOPHILS (test code = 1013) 1.3 % PLATELET COUNT (test code = 1015) 277 K/UL CBC W/AUTO [id number] 00:00:00 Test Item Value Reference Range Interpretation Comments WBC (test code = 1001) 7.9 K/UL RBC (test code = 1002) 4.62 M/UL HEMOGLOBIN (test code = 1003) 13.0 G/DL HEMATOCRIT (test code = 1004) 38.2 % MCV (test code = 1005) 82.7 fL MCH (test code = 1006) 28.1 PG MCHC (test code = 1007) 34.0 G/DL RDW (test code = 1038) 12.2 % NEUTROPHILS (test code = 1008) 59.5 % LYMPHOCYTES (test code = 1010) 26.6 % MONOCYTES (test code = 1011) 6.2 % EOSINOPHILS (test code = 1012) 6.4 % BASOPHILS (test code = 1013) 1.3 % PLATELET COUNT (test code = 1015) 277 K/UL CBC W/AUTO [id number] 00:00:00 Test Item Value Reference Range Interpretation Comments WBC (test code = 1001) 7.9 K/UL RBC (test code = 1002) 4.62 M/UL HEMOGLOBIN (test code = 1003) 13.0 G/DL HEMATOCRIT (test code = 1004) 38.2 % MCV (test code = 1005) 82.7 fL MCH (test code = 1006) 28.1 PG MCHC (test code = 1007) 34.0 G/DL RDW (test code = 1038) 12.2 % NEUTROPHILS (test code = 1008) 59.5 % LYMPHOCYTES (test code = 1010) 26.6 % MONOCYTES (test code = 1011) 6.2 % EOSINOPHILS (test code = 1012) 6.4 % BASOPHILS (test code = 1013) 1.3 % PLATELET COUNT (test code = 1015) 277 K/UL LIPID [id number] 00:00:00 Test Item Value Reference Range Interpretation Comments CHOLESTEROL (test code = 2210) 133 MG/DL TRIGLYCERIDES (test code = 2232) 144 MG/DL HDL CHOLESTEROL (test code = 2220) 42 MG/DL CALC LDL CHOL (test code = 2237) 62 MG/DL RISK RATIO LDL/HDL (test code = 1.48 RATIO 2238) LIPID [id number] 00:00:00 Test Item Value Reference Range Interpretation Comments CHOLESTEROL (test code = 2210) 133 MG/DL TRIGLYCERIDES (test code = 2232) 144 MG/DL HDL CHOLESTEROL (test code = 2220) 42 MG/DL CALC LDL CHOL (test code = 2237) 62 MG/DL RISK RATIO LDL/HDL (test code = 1.48 RATIO 2238) COMPREHENSIVE METABOLIC [id number] 00:00:00 Test Item Value Reference Range Interpretation Comments GLUCOSE (test code = 2217) 83 MG/DL BUN (test code = 2208) 21 MG/DL CREATININE (test code = 2214) 1.00 MG/DL eGFR AMER. (test code 82 ML/MIN/1.73 = 59534) eGFR NON- AMER. (test 70 ML/MIN/1.73 code = 91902) CALC BUN/CREAT (test code = 21 RATIO 2235) SODIUM (test code = 2231) 139 MEQ/L POTASSIUM (test code = 2228) 4.8 MEQ/L CHLORIDE (test code = 2215) 102 MEQ/L CARBON DIOXIDE (test code = 24 MEQ/L 2205) CALCIUM (test code = 2209) 9.4 MG/DL PROTEIN, TOTAL (test code = 6.9 G/DL 2228) ALBUMIN (test code = 2201) 4.8 G/DL CALC GLOBULIN (test code = 2.1 G/DL 2239) CALC A/G RATIO (test code = 2.3 RATIO 2234) BILIRUBIN, TOTAL (test code = 0.3 MG/DL 2206) ALKALINE PHOSPHATASE (test 51 U/L code = 2204) AST (test code = 2218) 14 U/L ALT (test code = 2219) 16 U/L COMPREHENSIVE METABOLIC [id number] 00:00:00 Test Item Value Reference Range Interpretation Comments GLUCOSE (test code = 2217) 83 MG/DL BUN (test code = 2208) 21 MG/DL CREATININE (test code = 2214) 1.00 MG/DL eGFR AMER. (test code 82 ML/MIN/1.73 = 25445) eGFR NON- AMER. (test 70 ML/MIN/1.73 code = 60514) CALC BUN/CREAT (test code = 21 RATIO 2235) SODIUM (test code = 2231) 139 MEQ/L POTASSIUM (test code = 2228) 4.8 MEQ/L CHLORIDE (test code = 2215) 102 MEQ/L CARBON DIOXIDE (test code = 24 MEQ/L 220) CALCIUM (test code = 2209) 9.4 MG/DL PROTEIN, TOTAL (test code = 6.9 G/DL 2228) ALBUMIN (test code = 2201) 4.8 G/DL CALC GLOBULIN (test code = 2.1 G/DL 0) CALC A/G RATIO (test code = 2.3 RATIO 4) BILIRUBIN, TOTAL (test code = 0.3 MG/DL 2206) ALKALINE PHOSPHATASE (test 51 U/L code = 2204) AST (test code = 2218) 14 U/L ALT (test code = 2219) 16 U/L [id number] 00:00:00 Test Item Value Reference Range Interpretation Comments TSH, THIRD GENERATION (test code 1.320 UIU/ML = 2821) [id number] 00:00:00 Test Item Value Reference Range Interpretation Comments TSH, THIRD GENERATION (test code 1.320 UIU/ML = 2821) [id number] 00:00:00 Test Item Value Reference Range Interpretation Comments TSH, THIRD GENERATION (test code 1.320 UIU/ML = 2821) CBC W/AUTO [id number] 00:00:00 Test Item Value Reference Range Interpretation Comments WBC (test code = 1001) 7.9 K/UL RBC (test code = 1002) 4.62 M/UL HEMOGLOBIN (test code = 1003) 13.0 G/DL HEMATOCRIT (test code = 1004) 38.2 % MCV (test code = 1005) 82.7 fL MCH (test code = 1006) 28.1 PG MCHC (test code = 1007) 34.0 G/DL RDW (test code = 1038) 12.2 % NEUTROPHILS (test code = 1008) 59.5 % LYMPHOCYTES (test code = 1010) 26.6 % MONOCYTES (test code = 1011) 6.2 % EOSINOPHILS (test code = 1012) 6.4 % BASOPHILS (test code = 1013) 1.3 % PLATELET COUNT (test code = 1015) 277 K/UL CBC W/AUTO [id number] 00:00:00 Test Item Value Reference Range Interpretation Comments WBC (test code = 1001) 7.9 K/UL RBC (test code = 1002) 4.62 M/UL HEMOGLOBIN (test code = 1003) 13.0 G/DL HEMATOCRIT (test code = 1004) 38.2 % MCV (test code = 1005) 82.7 fL MCH (test code = 1006) 28.1 PG MCHC (test code = 1007) 34.0 G/DL RDW (test code = 1038) 12.2 % NEUTROPHILS (test code = 1008) 59.5 % LYMPHOCYTES (test code = 1010) 26.6 % MONOCYTES (test code = 1011) 6.2 % EOSINOPHILS (test code = 1012) 6.4 % BASOPHILS (test code = 1013) 1.3 % PLATELET COUNT (test code = 1015) 277 K/UL CBC W/AUTO [id number] 00:00:00 Test Item Value Reference Range Interpretation Comments WBC (test code = 1001) 7.9 K/UL RBC (test code = 1002) 4.62 M/UL HEMOGLOBIN (test code = 1003) 13.0 G/DL HEMATOCRIT (test code = 1004) 38.2 % MCV (test code = 1005) 82.7 fL MCH (test code = 1006) 28.1 PG MCHC (test code = 1007) 34.0 G/DL RDW (test code = 1038) 12.2 % NEUTROPHILS (test code = 1008) 59.5 % LYMPHOCYTES (test code = 1010) 26.6 % MONOCYTES (test code = 1011) 6.2 % EOSINOPHILS (test code = 1012) 6.4 % BASOPHILS (test code = 1013) 1.3 % PLATELET COUNT (test code = 1015) 277 K/UL LIPID [id number] 00:00:00 Test Item Value Reference Range Interpretation Comments CHOLESTEROL (test code = 2210) 133 MG/DL TRIGLYCERIDES (test code = 2232) 144 MG/DL HDL CHOLESTEROL (test code = 2220) 42 MG/DL CALC LDL CHOL (test code = 2237) 62 MG/DL RISK RATIO LDL/HDL (test code = 1.48 RATIO 2238) CBC W/AUTO [id number] 00:00:00 Test Item Value Reference Range Interpretation Comments WBC (test code = 1001) 8.6 K/UL RBC (test code = 1002) 4.86 M/UL HEMOGLOBIN (test code = 1003) 14.3 G/DL HEMATOCRIT (test code = 1004) 39.9 % MCV (test code = 1005) 82.1 fL MCH (test code = 1006) 29.4 PG MCHC (test code = 1007) 35.8 G/DL RDW (test code = 1038) 12.7 % NEUTROPHILS (test code = 1008) 57.9 % LYMPHOCYTES (test code = 1010) 27.9 % MONOCYTES (test code = 1011) 6.4 % EOSINOPHILS (test code = 1012) 6.8 % BASOPHILS (test code = 1013) 1.0 % PLATELET COUNT (test code = 1015) 286 K/UL CBC W/AUTO [id number] 00:00:00 Test Item Value Reference Range Interpretation Comments WBC (test code = 1001) 8.6 K/UL RBC (test code = 1002) 4.86 M/UL HEMOGLOBIN (test code = 1003) 14.3 G/DL HEMATOCRIT (test code = 1004) 39.9 % MCV (test code = 1005) 82.1 fL MCH (test code = 1006) 29.4 PG MCHC (test code = 1007) 35.8 G/DL RDW (test code = 1038) 12.7 % NEUTROPHILS (test code = 1008) 57.9 % LYMPHOCYTES (test code = 1010) 27.9 % MONOCYTES (test code = 1011) 6.4 % EOSINOPHILS (test code = 1012) 6.8 % BASOPHILS (test code = 1013) 1.0 % PLATELET COUNT (test code = 1015) 286 K/UL CBC W/AUTO [id number] 00:00:00 Test Item Value Reference Range Interpretation Comments WBC (test code = 1001) 8.6 K/UL RBC (test code = 1002) 4.86 M/UL HEMOGLOBIN (test code = 1003) 14.3 G/DL HEMATOCRIT (test code = 1004) 39.9 % MCV (test code = 1005) 82.1 fL MCH (test code = 1006) 29.4 PG MCHC (test code = 1007) 35.8 G/DL RDW (test code = 1038) 12.7 % NEUTROPHILS (test code = 1008) 57.9 % LYMPHOCYTES (test code = 1010) 27.9 % MONOCYTES (test code = 1011) 6.4 % EOSINOPHILS (test code = 1012) 6.8 % BASOPHILS (test code = 1013) 1.0 % PLATELET COUNT (test code = 1015) 286 K/UL COMPREHENSIVE METABOLIC [id number] 00:00:00 Test Item Value Reference Range Interpretation Comments GLUCOSE (test code = 2217) 91 MG/DL BUN (test code = 2208) 20 MG/DL CREATININE (test code = 2214) 0.87 MG/DL eGFR AMER. (test code 97 ML/MIN/1.73 = 16236) eGFR NON- AMER. (test 84 ML/MIN/1.73 code = 58310) CALC BUN/CREAT (test code = 23 RATIO 2235) SODIUM (test code = 2231) 141 MEQ/L POTASSIUM (test code = 2228) 4.5 MEQ/L CHLORIDE (test code = 2215) 102 MEQ/L CARBON DIOXIDE (test code = 27 MEQ/L 220) CALCIUM (test code = 2209) 9.5 MG/DL PROTEIN, TOTAL (test code = 7.1 G/DL 2228) ALBUMIN (test code = 2201) 4.7 G/DL CALC GLOBULIN (test code = 2.4 G/DL 2240) CALC A/G RATIO (test code = 2.0 RATIO 2234) BILIRUBIN, TOTAL (test code = 0.2 MG/DL 2206) ALKALINE PHOSPHATASE (test 55 U/L code = 2204) AST (test code = 2218) 14 U/L ALT (test code = 2219) 23 U/L COMPREHENSIVE METABOLIC [id number] 00:00:00 Test Item Value Reference Range Interpretation Comments GLUCOSE (test code = 2217) 91 MG/DL BUN (test code = 2208) 20 MG/DL CREATININE (test code = 2214) 0.87 MG/DL eGFR AMER. (test code 97 ML/MIN/1.73 = 70483) eGFR NON- AMER. (test 84 ML/MIN/1.73 code = 53525) CALC BUN/CREAT (test code = 23 RATIO 2235) SODIUM (test code = 2231) 141 MEQ/L POTASSIUM (test code = 2228) 4.5 MEQ/L CHLORIDE (test code = 2215) 102 MEQ/L CARBON DIOXIDE (test code = 27 MEQ/L 2206) CALCIUM (test code = 2209) 9.5 MG/DL PROTEIN, TOTAL (test code = 7.1 G/DL 2228) ALBUMIN (test code = 2201) 4.7 G/DL CALC GLOBULIN (test code = 2.4 G/DL 2240) CALC A/G RATIO (test code = 2.0 RATIO 2234) BILIRUBIN, TOTAL (test code = 0.2 MG/DL 2207) ALKALINE PHOSPHATASE (test 55 U/L code = 2204) AST (test code = 2218) 14 U/L ALT (test code = 2219) 23 U/L LIPID [id number] 00:00:00 Test Item Value Reference Range Interpretation Comments CHOLESTEROL (test code = 2210) 160 MG/DL TRIGLYCERIDES (test code = 2232) 159 MG/DL HDL CHOLESTEROL (test code = 2220) 51 MG/DL CALC LDL CHOL (test code = 2237) 77 MG/DL RISK RATIO LDL/HDL (test code = 1.51 RATIO 2238) LIPID [id number] 00:00:00 Test Item Value Reference Range Interpretation Comments CHOLESTEROL (test code = 2210) 160 MG/DL TRIGLYCERIDES (test code = 2232) 159 MG/DL HDL CHOLESTEROL (test code = 2220) 51 MG/DL CALC LDL CHOL (test code = 2237) 77 MG/DL RISK RATIO LDL/HDL (test code = 1.51 RATIO 2238) CBC W/AUTO [id number] 00:00:00 Test Item Value Reference Range Interpretation Comments WBC (test code = 1001) 8.6 K/UL RBC (test code = 1002) 4.86 M/UL HEMOGLOBIN (test code = 1003) 14.3 G/DL HEMATOCRIT (test code = 1004) 39.9 % MCV (test code = 1005) 82.1 fL MCH (test code = 1006) 29.4 PG MCHC (test code = 1007) 35.8 G/DL RDW (test code = 1038) 12.7 % NEUTROPHILS (test code = 1008) 57.9 % LYMPHOCYTES (test code = 1010) 27.9 % MONOCYTES (test code = 1011) 6.4 % EOSINOPHILS (test code = 1012) 6.8 % BASOPHILS (test code = 1013) 1.0 % PLATELET COUNT (test code = 1015) 286 K/UL CBC W/AUTO [id number] 00:00:00 Test Item Value Reference Range Interpretation Comments WBC (test code = 1001) 8.6 K/UL RBC (test code = 1002) 4.86 M/UL HEMOGLOBIN (test code = 1003) 14.3 G/DL HEMATOCRIT (test code = 1004) 39.9 % MCV (test code = 1005) 82.1 fL MCH (test code = 1006) 29.4 PG MCHC (test code = 1007) 35.8 G/DL RDW (test code = 1038) 12.7 % NEUTROPHILS (test code = 1008) 57.9 % LYMPHOCYTES (test code = 1010) 27.9 % MONOCYTES (test code = 1011) 6.4 % EOSINOPHILS (test code = 1012) 6.8 % BASOPHILS (test code = 1013) 1.0 % PLATELET COUNT (test code = 1015) 286 K/UL CBC W/AUTO [id number] 00:00:00 Test Item Value Reference Range Interpretation Comments WBC (test code = 1001) 8.6 K/UL RBC (test code = 1002) 4.86 M/UL HEMOGLOBIN (test code = 1003) 14.3 G/DL HEMATOCRIT (test code = 1004) 39.9 % MCV (test code = 1005) 82.1 fL MCH (test code = 1006) 29.4 PG MCHC (test code = 1007) 35.8 G/DL RDW (test code = 1038) 12.7 % NEUTROPHILS (test code = 1008) 57.9 % LYMPHOCYTES (test code = 1010) 27.9 % MONOCYTES (test code = 1011) 6.4 % EOSINOPHILS (test code = 1012) 6.8 % BASOPHILS (test code = 1013) 1.0 % PLATELET COUNT (test code = 1015) 286 K/UL COMPREHENSIVE METABOLIC [id number] 00:00:00 Test Item Value Reference Range Interpretation Comments GLUCOSE (test code = 2217) 91 MG/DL BUN (test code = 2208) 20 MG/DL CREATININE (test code = 2214) 0.87 MG/DL eGFR AMER. (test code 97 ML/MIN/1.73 = 77999) eGFR NON- AMER. (test 84 ML/MIN/1.73 code = 23443) CALC BUN/CREAT (test code = 23 RATIO 2235) SODIUM (test code = 2231) 141 MEQ/L POTASSIUM (test code = 2228) 4.5 MEQ/L CHLORIDE (test code = 2215) 102 MEQ/L CARBON DIOXIDE (test code = 27 MEQ/L 2206) CALCIUM (test code = 2209) 9.5 MG/DL PROTEIN, TOTAL (test code = 7.1 G/DL 222) ALBUMIN (test code = 2201) 4.7 G/DL CALC GLOBULIN (test code = 2.4 G/DL 2240) CALC A/G RATIO (test code = 2.0 RATIO 2234) BILIRUBIN, TOTAL (test code = 0.2 MG/DL 220) ALKALINE PHOSPHATASE (test 55 U/L code = 2204) AST (test code = 2218) 14 U/L ALT (test code = 2219) 23 U/L COMPREHENSIVE METABOLIC [id number] 00:00:00 Test Item Value Reference Range Interpretation Comments GLUCOSE (test code = 2217) 91 MG/DL BUN (test code = 2208) 20 MG/DL CREATININE (test code = 2214) 0.87 MG/DL eGFR AMER. (test code 97 ML/MIN/1.73 = 47805) eGFR NON- AMER. (test 84 ML/MIN/1.73 code = 92065) CALC BUN/CREAT (test code = 23 RATIO 2235) SODIUM (test code = 2231) 141 MEQ/L POTASSIUM (test code = 2228) 4.5 MEQ/L CHLORIDE (test code = 2215) 102 MEQ/L CARBON DIOXIDE (test code = 27 MEQ/L 2205) CALCIUM (test code = 2209) 9.5 MG/DL PROTEIN, TOTAL (test code = 7.1 G/DL 2228) ALBUMIN (test code = 2201) 4.7 G/DL CALC GLOBULIN (test code = 2.4 G/DL 2240) CALC A/G RATIO (test code = 2.0 RATIO 2234) BILIRUBIN, TOTAL (test code = 0.2 MG/DL 2206) ALKALINE PHOSPHATASE (test 55 U/L code = 2204) AST (test code = 2218) 14 U/L ALT (test code = 2219) 23 U/L LIPID [id number] 00:00:00 Test Item Value Reference Range Interpretation Comments CHOLESTEROL (test code = 2210) 160 MG/DL TRIGLYCERIDES (test code = 2232) 159 MG/DL HDL CHOLESTEROL (test code = 2220) 51 MG/DL CALC LDL CHOL (test code = 2237) 77 MG/DL RISK RATIO LDL/HDL (test code = 1.51 RATIO 2238) LIPID [id number] 00:00:00 Test Item Value Reference Range Interpretation Comments CHOLESTEROL (test code = 2210) 160 MG/DL TRIGLYCERIDES (test code = 2232) 159 MG/DL HDL CHOLESTEROL (test code = 2220) 51 MG/DL CALC LDL CHOL (test code = 2237) 77 MG/DL RISK RATIO LDL/HDL (test code = 1.51 RATIO 2238) CBC W/AUTO [id number] 00:00:00 Test Item Value Reference Range Interpretation Comments WBC (test code = 1001) 8.6 K/UL RBC (test code = 1002) 4.86 M/UL HEMOGLOBIN (test code = 1003) 14.3 G/DL HEMATOCRIT (test code = 1004) 39.9 % MCV (test code = 1005) 82.1 fL MCH (test code = 1006) 29.4 PG MCHC (test code = 1007) 35.8 G/DL RDW (test code = 1038) 12.7 % NEUTROPHILS (test code = 1008) 57.9 % LYMPHOCYTES (test code = 1010) 27.9 % MONOCYTES (test code = 1011) 6.4 % EOSINOPHILS (test code = 1012) 6.8 % BASOPHILS (test code = 1013) 1.0 % PLATELET COUNT (test code = 1015) 286 K/UL CBC W/AUTO [id number] 00:00:00 Test Item Value Reference Range Interpretation Comments WBC (test code = 1001) 8.6 K/UL RBC (test code = 1002) 4.86 M/UL HEMOGLOBIN (test code = 1003) 14.3 G/DL HEMATOCRIT (test code = 1004) 39.9 % MCV (test code = 1005) 82.1 fL MCH (test code = 1006) 29.4 PG MCHC (test code = 1007) 35.8 G/DL RDW (test code = 1038) 12.7 % NEUTROPHILS (test code = 1008) 57.9 % LYMPHOCYTES (test code = 1010) 27.9 % MONOCYTES (test code = 1011) 6.4 % EOSINOPHILS (test code = 1012) 6.8 % BASOPHILS (test code = 1013) 1.0 % PLATELET COUNT (test code = 1015) 286 K/UL CBC W/AUTO [id number] 00:00:00 Test Item Value Reference Range Interpretation Comments WBC (test code = 1001) 8.6 K/UL RBC (test code = 1002) 4.86 M/UL HEMOGLOBIN (test code = 1003) 14.3 G/DL HEMATOCRIT (test code = 1004) 39.9 % MCV (test code = 1005) 82.1 fL MCH (test code = 1006) 29.4 PG MCHC (test code = 1007) 35.8 G/DL RDW (test code = 1038) 12.7 % NEUTROPHILS (test code = 1008) 57.9 % LYMPHOCYTES (test code = 1010) 27.9 % MONOCYTES (test code = 1011) 6.4 % EOSINOPHILS (test code = 1012) 6.8 % BASOPHILS (test code = 1013) 1.0 % PLATELET COUNT (test code = 1015) 286 K/UL COMPREHENSIVE METABOLIC [id number] 00:00:00 Test Item Value Reference Range Interpretation Comments GLUCOSE (test code = 2217) 91 MG/DL BUN (test code = 2208) 20 MG/DL CREATININE (test code = 2214) 0.87 MG/DL eGFR AMER. (test code 97 ML/MIN/1.73 = 33390) eGFR NON- AMER. (test 84 ML/MIN/1.73 code = 76566) CALC BUN/CREAT (test code = 23 RATIO 2235) SODIUM (test code = 2231) 141 MEQ/L POTASSIUM (test code = 2228) 4.5 MEQ/L CHLORIDE (test code = 2215) 102 MEQ/L CARBON DIOXIDE (test code = 27 MEQ/L 2206) CALCIUM (test code = 2209) 9.5 MG/DL PROTEIN, TOTAL (test code = 7.1 G/DL 2228) ALBUMIN (test code = 2201) 4.7 G/DL CALC GLOBULIN (test code = 2.4 G/DL 2240) CALC A/G RATIO (test code = 2.0 RATIO 2234) BILIRUBIN, TOTAL (test code = 0.2 MG/DL 2207) ALKALINE PHOSPHATASE (test 55 U/L code = 2204) AST (test code = 2218) 14 U/L ALT (test code = 2219) 23 U/L COMPREHENSIVE METABOLIC [id number] 00:00:00 Test Item Value Reference Range Interpretation Comments GLUCOSE (test code = 2217) 91 MG/DL BUN (test code = 2208) 20 MG/DL CREATININE (test code = 2214) 0.87 MG/DL eGFR AMER. (test code 97 ML/MIN/1.73 = 14379) eGFR NON- AMER. (test 84 ML/MIN/1.73 code = 62151) CALC BUN/CREAT (test code = 23 RATIO 2235) SODIUM (test code = 2231) 141 MEQ/L POTASSIUM (test code = 2228) 4.5 MEQ/L CHLORIDE (test code = 2215) 102 MEQ/L CARBON DIOXIDE (test code = 27 MEQ/L 2205) CALCIUM (test code = 2209) 9.5 MG/DL PROTEIN, TOTAL (test code = 7.1 G/DL 2228) ALBUMIN (test code = 2201) 4.7 G/DL CALC GLOBULIN (test code = 2.4 G/DL 2239) CALC A/G RATIO (test code = 2.0 RATIO 2233) BILIRUBIN, TOTAL (test code = 0.2 MG/DL 2206) ALKALINE PHOSPHATASE (test 55 U/L code = 2204) AST (test code = 2218) 14 U/L ALT (test code = 2219) 23 U/L LIPID [id number] 00:00:00 Test Item Value Reference Range Interpretation Comments CHOLESTEROL (test code = 2210) 160 MG/DL TRIGLYCERIDES (test code = 2232) 159 MG/DL HDL CHOLESTEROL (test code = 2220) 51 MG/DL CALC LDL CHOL (test code = 2237) 77 MG/DL RISK RATIO LDL/HDL (test code = 1.51 RATIO 2238) LIPID [id number] 00:00:00 Test Item Value Reference Range Interpretation Comments CHOLESTEROL (test code = 2210) 160 MG/DL TRIGLYCERIDES (test code = 2232) 159 MG/DL HDL CHOLESTEROL (test code = 2220) 51 MG/DL CALC LDL CHOL (test code = 2237) 77 MG/DL RISK RATIO LDL/HDL (test code = 1.51 RATIO 2238)
--- NOTE | 2023-06-18 13:26 | EDPHYS ---
Physician Documentation [facility] Name: Roula Conde Age: 42 yrs Sex: Female : 1980 Arrival Date: 06/18/2023 Time: 12:50 Bed IW3 Private MD: ED Physician Asha Hernandez HPI: 06/18 13:19 This 42 yrs old Female presents to ER via Ambulatory with complaints of Shoulder Pain. jh7 13:19 The patient or guardian complains of decreased range of motion, pain, that is acute. jh7 right shoulder. Onset: The symptoms/episode began/occurred 3 day(s) ago. Associated signs and symptoms: Pertinent negatives: abdominal pain, chest pain, dyspnea, neck pain, tingling. Treatment prior to arrival includes: prescription medications, naproxen. Patient woke up with right shoulder pain on Wednesday. She denies any injury. Reports that the pain is reproducible with any movement and that the pain is located at her posterior shoulder. She reports that [facility] and they performed an x-ray which showed no fractures. She was given a Toradol shot which he states improved her pain and a prescription for naproxen. States that the pain has continued and that she is having trouble lifting due to the pain.. Historical: - Allergies: 13:19 Iodinated Contrast Media - IV Dye (Hives, swelling); cm10 - Home Meds: 13:19 None [Active]; cm10 - PMHx: 13:19 None; cm10 - PSHx: 13:19 None; cm10 - Immunization history:: Adult Immunizations unknown. - Social history:: Smoking status: Patient denies any tobacco usage or history of. ROS: 13:19 Constitutional: Negative for fever, chills, and weight loss, Eyes: Negative for injury, jh7 pain, redness, and discharge, Neck: Negative for injury, pain, and swelling, Cardiovascular: Negative for chest pain, palpitations, and edema, Respiratory: Negative for shortness of breath, cough, wheezing, and pleuritic chest pain, Back: Negative for injury and pain, Skin: Negative for injury, rash, and discoloration, Neuro: Negative for headache, weakness, numbness, tingling, and seizure, 13:19 MS/extremity: Positive for decreased range of motion, pain, tenderness, Negative for injury or acute deformity, 13:19 All other systems are negative, Exam: 13:19 Constitutional: This is a well developed, well nourished patient who is awake, alert, jh7 and in no acute distress. Head/Face: Normocephalic, atraumatic. Neck: Trachea midline, no thyromegaly or masses palpated, and no cervical lymphadenopathy. Supple, full range of motion without nuchal rigidity, or vertebral point tenderness. No Meningismus. Cardiovascular: Regular rate and rhythm with a normal S1 and S2. No gallops, murmurs, or rubs. Normal PMI, no JVD. No pulse deficits. Respiratory: Lungs have equal breath sounds bilaterally, clear to auscultation and percussion. No rales, rhonchi or wheezes noted. No increased work of breathing, no retractions or nasal flaring. Back: No spinal tenderness. No costovertebral tenderness. Full range of motion. Skin: Warm, dry with normal turgor. Normal color with no rashes, no lesions, and no evidence of cellulitis. Neuro: Awake and alert, GCS 15, oriented to person, place, time, and situation. Sensory grossly intact. Normal gait. 13:19 Musculoskeletal/extremity: Extremities: noted in the right shoulder: decreased ROM, pain, pain located in the right posterior shoulder with any abduction or internal rotation. Tenderness to palpation in this area as well., ROM: limited active range of motion, in the right shoulder, limited active range of motion due to pain, in the right shoulder, Circulation is intact in all extremities. Sensation intact. No bruising, swelling, or deformity noted in the right shoulder.. Vital Signs: 13:18 BP 130 / 84; Pulse 85; Resp 18; Temp 98.4(TE); Pulse Ox 99% on R/A; Weight 78.93 kg cm10 (R); Height 5 ft. 7 in. (R); Pain 9/10; 13:18 Body Mass Index 27.25 (78.93 kg, 170.18 cm) cm10 13:18 Pain Scale: Adult cm10 MDM: 12:54 Patient medically screened. [facility] 13:33 Differential diagnosis: DJD, tendonitis, Bursitis, adhesive capsulitis, rotator cuff [facility] injury. Data reviewed: vital signs, nurses notes. I considered the following discharge prescriptions or medication management in the emergency department Medications were administered in the Emergency Department. See MAR. Counseling: I had a detailed discussion with the patient and/or guardian regarding the historical points, exam findings, and any diagnostic results supporting the discharge/admit diagnosis, the need for outpatient follow up, a orthopedic surgeon, to return to the emergency department if symptoms worsen or persist or if there are any questions or concerns that arise at home. Response to treatment: the patient's symptoms have mildly improved after treatment. Special discussion: Inform the patient that we would be happy to repeat the x-rays, but she declined since they were just [facility]. Informed her to follow-up with an orthopedist if pain continued for an MRI.. 06/18 13:14 Order name: Sling; Complete Time: 13:30 [facility] Administered Medications: 13:30 Drug: Dexamethasone IM 10 mg IM once Route: IM; Site: right gluteus; cm10 13:43 Follow up: Response: No adverse reaction cm10 Disposition: 16:41 I agree with the assessment and plan of care. I reviewed the patient's care provided by cp3 Advanced Practice Provider \T\ agree w/ the diagnosis \T\ care plan. I personally saw the pt \T\ performed a substantive portion of the visit, incldng all aspects of the (History/Exam/Medical Decision Making). Disposition Summary: 06/18/23 13:25 Discharge Ordered Notes: Location: [place] [id number] Problem: new [facility] Symptoms: are unchanged [facility] Condition: Stable [facility] Diagnosis - Pain in right shoulder [facility] Followup: [facility] - With: Steven Puga MD - When: 2 - 3 days - Reason: Recheck today's complaints Discharge Instructions: - Discharge Summary Sheet [facility] - Musculoskeletal Pain [facility] - Shoulder Pain [facility] - How to Use Cold Therapy, [id number] [facility] - How to Use a Sling [facility] Forms: - Medication Reconciliation Form [facility] - Thank You Letter [facility] - Prescription Opioid Use [facility] - Patient Portal Instructions [facility] - Leadership Thank You Letter [facility] - Work release form cm10 Prescriptions: - Zanaflex 4 mg Oral Tablet - take 1 tablet ORAL route every 8 hours As needed; 20 tablet; Refills: 0, 7 Product Selection Permitted - Tramadol 50 mg Oral Tablet - take 1 tablet ORAL route every 8 hours as needed; 12 tablet; Refills: 0, jh7 Product Selection Permitted Signatures: Asha Hernandez, MD GALINDO cp3 Gayle Belle FNP RECREATIONAL AIDE jh7 Fatuma Ford, RN RN cm10
--- NOTE | 2023-06-18 13:26 | ER ---
Nurse's Notes [facility] Name: Roula Conde Age: 42 yrs Sex: Female : 1980 Arrival Date: 06/18/2023 Time: 12:50 Bed IW3 Private MD: Diagnosis: Pain in right shoulder Presentation: 06/18 13:18 Chief complaint: Patient states: left shoulder pain onset Wednesday. Pt states that she cm10 woke up with the pain. Pt states that any movement makes the pain worse. Coronavirus screen: Vaccine status: Patient reports being unvaccinated. Client denies travel out of the [place] in the last 14 days. Ebola Screen: Patient denies travel to an Ebola-affected area in the 21 days before illness onset. No symptoms or risks identified at this time. Initial Sepsis Screen: Does the patient meet any 2 criteria? No. Patient's initial sepsis screen is negative. Does the patient have a suspected source of infection? No. Patient's initial sepsis screen is negative. Risk Assessment: Do you want to hurt yourself or someone else? Patient reports no desire to harm self or others. Onset of symptoms was June 18, 2023. 13:18 Method Of Arrival: Ambulatory cm10 13:18 Acuity: [facility] CARMEN 4 cm10 Triage Assessment: 13:20 General: Appears in no apparent distress. comfortable, Behavior is calm, cooperative. cm10 Pain: Complains of pain in right shoulder. EENT: No deficits noted. No signs and/or symptoms were reported regarding the EENT system. Neuro: No deficits noted. Harvey Agitation-Sedation Scale (RASS): 0 - Alert and Calm Level of Consciousness is awake, alert, obeys commands, Oriented to person, place, time, situation. Cardiovascular: No deficits noted. Patient's skin is warm and dry. Respiratory: No deficits noted. Airway is patent Respiratory effort is even, unlabored, Respiratory pattern is regular, symmetrical. GI: No deficits noted. No signs and/or symptoms were reported involving the gastrointestinal system. : No deficits noted. No signs and/or symptoms were reported regarding the genitourinary system. Derm: No deficits noted. No signs and/or symptoms reported regarding the dermatologic system. Skin is intact, Skin is pink, warm \T\ dry. Musculoskeletal: Reports pain in Right shoulder. Historical: - Allergies: 13:19 Iodinated Contrast Media - IV Dye (Hives, swelling); cm10 - Home Meds: 13:19 None [Active]; cm10 - PMHx: 13:19 None; cm10 - PSHx: 13:19 None; cm10 - Immunization history:: Adult Immunizations unknown. - Social history:: Smoking status: Patient denies any tobacco usage or history of. Screenin:31 [facility] ED Fall Risk Assessment (Adult) History of falling in the last 3 months, cm10 including since admission No falls in past 3 months (0 pts) Confusion or Disorientation No (0 pts) Intoxicated or Sedated No (0 pts) Impaired Gait No (0 pts) Mobility Assist Device Used No (0 pt) Altered Elimination No (0 pt) Score/Fall Risk Level 0 - 2 = Low Risk Oriented to surroundings, Maintained a safe environment, Hourly rounding (assess needs \T\ fall precautionary measures) done. Abuse screen: Denies threats or abuse. Denies injuries from another. Nutritional screening: No deficits noted. Tuberculosis screening: No symptoms or risk factors identified. Vital Signs: 13:18 BP 130 / 84; Pulse 85; Resp 18; Temp 98.4(TE); Pulse Ox 99% on R/A; Weight 78.93 kg cm10 (R); Height 5 ft. 7 in. (R); Pain 9/10; 13:18 Body Mass Index 27.25 (78.93 kg, 170.18 cm) cm10 13:18 Pain Scale: Adult cm10 ED Course: 12:53 Patient arrived in ED. mr 12:54 Gayle Belle FNP is [facility] 7 12:54 Asha Hernandez MD is Attending Physician. 7 13:19 Triage completed. cm10 13:21 Arm band placed on Patient placed in waiting room. cm10 13:25 Steven Puga MD is Referral Physician. 7 13:31 Patient has correct armband on for positive identification. Provided Education on: ER cm10 process and procedures. . 13:31 No provider procedures requiring assistance completed. Patient did not have IV access cm10 during this emergency room visit. Sling applied to right arm. Administered Medications: 13:30 Drug: Dexamethasone IM 10 mg IM once Route: IM; Site: right gluteus; cm10 13:43 Follow up: Response: No adverse reaction cm10 Medication: 13:31 VIS not applicable for this client. cm10 Outcome: 13:25 Discharge ordered by MD. salvador 13:47 Patient left the ED. Signatures: Yovana Wagner, Giuseppe Chin mr Shelbie Caballero, RN RN Gayle Mccall, SPORTS INFORMATION DIRECTOR SPORTS INFORMATION DIRECTOR Fatuma Poe RN RN cm10
[2023-06-18] MEDS ORDERED: dexAMETHasone 10 MG/ML VIAL ONE (13:38)
[2023-06-18 14:08] VITALS: BP 130/84; TEMP 98.4; O2SAT 99
== END 2023-06-18 13:47 | disposition home or self-care (01) ==
LOC: ER 12:50
DX: M25.511 Pain in right shoulder (principal); Z91.09 Other allergy status, other than to drugs and biological substances
CPT/HCPCS: 96372; 99284; J1100

== ENCOUNTER 2024-05-30 19:50 | Emergency (ER) | payer OTHER ==
--- OUTSIDE RECORDS SUMMARY | 2024-05-30 20:12 | XMS REPORT | Continuity of Care Document ---
Author Name Unknown Address [address] [place] [address] [facility] Address 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 Name Role Phone Pcp, Patient Does Not Have A Primary Care Physic eric BARAK LOMBARDO Attending Clinician Unavail Barak Kothari MD Attending Clinician [phone] YEN LOVE Attending Clinician Unavailable Yen Love MD Attending Clinician [phone] Carmen Hale MD Attending Clinician Doctor Unassigned, [place] Attending Clinician U navailable RADIOLOGY Attending Clinician Unavailable Radiology Attending Clinician Unavailable BARAK LOMBARDO Admitting Clinician Unavail Barak Kothari MD Admitting Clinician [phone] YEN LOVE Admitting Clinician Unavailable Payers Payer Name Policy Type Policy Number Effective Date Expirati on Date Source [facility] [id number] 2020 00:00:00 [employer] and [employer] C1 [id number] [facility] Problems Condition Name Condition Details Condition Category Status Onset Date Resolution Date Last Treatment Date Treating Clinician Comments Source Localized swelling, mass, or lump of left lower extremity Localized swelling, mass, or lump of left lower extremity Disease Active 4-24 00:00: 00 [facility] No known active problems No known active problems Disease [facility] Allergies, Adverse Reactions, Alerts Allergy Name Allergy Type Status Severity Reaction(s) Onset Date Inactive Date Treating Clinician Comments Source [place] - Intraven ous Propensi ty to adverse reaction to drug Active 01-05 00:00: 00 Iodine Propensi ty to adverse reaction to drug Active 03-13 00:00: 00 NO KNOWN ALLERGIE S Drug Class Active [facility] Social History Social Habit Start Date Stop Date Quantity Comments Source History of tobacco use Passive smoker [facility] Alcohol intake 2023-01-05 00:00:00 2023-01-05 00:00:00 Ex-drinker (finding) [facility] Exposure to SARS-CoV-2 (event) 2022-12-19 00:00:00 2022-12-29 08:47:00 Not sure [facility] Sex Assigned At 1980 00:00:00 1980 00:00:00 [facility] Smoking Status Start Date Stop Date Source Tobacco smoking consumption unknown [facility] Ex-smoker 2022-12-21 00:00:00 2022-12-21 00:00:00 [facility] Never Smoker [facility] Medications Ordered Medication Name Filled Medication Name Start Date Stop Date Current Medication? Ordering Clinician Indication Dosage Frequency Signature (SIG) Comments Components Source ergocalcife rol, vitamin D2, (VITAMIN D2 ORAL) 01-18 08:34: 11 Yes 5000U Take 5,000 Units by mouth. [facility] lactated ringers IV infusion 1,000 mL 01-04 14:00: 00 Yes 1000mL at 100 mL/hr, 1,000 mL, IV Infusion, CONTINUOUS , Starting on Wed01/04/23 at 0900, Until Discontinu ed, Routine, PACU [facility] HYDROmorphO ne (DILAUDID) injection 0.2 mg 01-04 13:46: 22 Yes .2mg 0.2 mg, Slow IV Push, Q5MIN PRN, 10 doses, Starting on Wed01/04/23 at 0846, Until Discontinu ed, Routine, Pain (scale 7-10), PACU
Us e approved by (Faculty): PACU USE -ANESTHESI A SERVICE-HY DROMORPHON E INJECTIONS [facility] FENTanyl PF (SUBLIMAZE (PF)) injection 25 mcg 01-04 13:46: 22 Yes 25ug 25 mcg, Slow IV Push, Q5MIN PRN, 4 doses, Starting on Wed01/04/23 at 0846, Until Discontinu ed, Routine, Pain (scale 4-6), PACU [facility] ondansetron (ZOFRAN (PF)) injection 4 mg 01-04 13:46: 22 Yes 4mg 4 mg, Slow IV Push, PRN, 1 dose, Starting on Wed01/04/23 at 0846, Until Discontinu ed, Routine, Nausea and Vomiting (N/V), PACU [facility] bupivacaine (preserv free) (SENSORCAIN E MPF) 0.25 % (2.5 mg/mL) injection 01-04 13:10: 00 01-04 13:46 :48 No PRN, Starting on Wed01/04/23 at 0810, Until Wed01/04/23 at 0846, Routine, Intra-op [facility] sodium chloride 0.9 % irrigation solution 01-04 13:10: 00 01-04 13:46 :48 No PRN, Starting on Wed01/04/23 at 0810, Until Wed01/04/23 at 0846, Intra-op [facility] lactated ringers IV infusion 1,000 mL 01-04 12:30: 00 01-04 12:30 :00 No 1000mL at 42 mL/hr, 1,000 mL, IV Infusion, ONCE, 1 dose, On Wed01/04/23 at 0730, Routine, DSU Pre-op [facility] ergocalcife rol, vitamin D2, (VITAMIN D2 ORAL) 01-04 10:24: 48 Yes 5000U Take 5,000 Units by mouth. [facility] HYDROcodone -acetaminop hen (NORCO) 5-325 mg tablet 01-04 00:00: 00 01-12 04:59 :00 No 4647 1{tbl} Take 1 tablet by mouth every 6 (six) hours as needed for Pain (scale 7-10) for up to 7 days. Indication s: acute pain [facility] ergocalcife rol, vitamin D2, (VITAMIN D2 ORAL) 12-29 08:36: 57 Yes 5000U Take 5,000 Units by mouth. [facility] gadobenate dimeglumine (MULTIHANCE -20 mL) injection 17.7 mL 12-22 22:30: 00 12-22 22:15 :00 No [id number] .2mL/kg 17.7 mL (0.2 mL/kg ?88.5 kg), Intravenou s, ONCE, 1 dose, On Wed12/22/22 at 1730, Routine [facility] ergocalcife rol, vitamin D2, (VITAMIN D2 ORAL) 12-21 10:32: 19 Yes 5000U Take 5,000 Units by mouth. [facility] No known medications 09-07 09:20: 19 No No known medication s [facility] predniSONE 50 mg tablet 08-18 00:00: 00 01-04 00:00 :00 No TAKE ONE (1) TABLET(S) BY MOUTH AT 13 HOURS, 1 TAB AT 7 HOURS AND 1 TAB AT 1 HOUR BEFORE CONTRAST MEDIA INJECTION. [facility] lisinopriL 20 mg tablet 2021-08 00:00: 00 Yes 20mg Take 1 tablet by mouth at bedtime. [facility] TAKE 1 TABLET DAILY. 2021-08 00:00: 00 No Dose Unknown 2021-08 00:00: 00 No METHYLPREDN ISOLONE 4 MG TBPK 2021-08 00:00: 00 No TAKE 10 ML(S) BY MOUTH EVERY 6 TO 8 HOURS NEEDED. 2021-08 00:00: 00 No Dose Unknown 2021-08 00:00: 00 No TAKE TWO (2) CAPSULE(S) BY MOUTH EVERY EIGHT HOURS NEEDED FOR COUGH AND CONGESTION. 2021-08 00:00: 00 No AMOX/K CLAV [id number] 2-14 00:00: 00 No TAKE ONE (1) TABLET BY MOUTH DAILY. 2021-08 00:00: 00 No Dose Unknown 2021-08 00:00: 00 No INHALE ONE (1) PUFF BY MOUTH EVERY 4-6 HOURS. 2021-08 00:00: 00 No Dose Unknown 2021-08 00:00: 00 No Dose Unknown 2021-08 00:00: 00 No TAKE TWO (2) TABLET(S) BY MOUTH ONCE A DAY FOR 5 DAYS. 2021-08 00:00: 00 No TAKE 1 TABLET DAILY. 2021-08 00:00: 00 No Dose Unknown 2021-08 00:00: 00 No METHYLPREDN ISOLONE 4 MG TBPK 2021-08 00:00: 00 No TAKE 10 ML(S) BY MOUTH EVERY 6 TO 8 HOURS NEEDED. 2021-08 00:00: 00 No Dose Unknown 2021-08 00:00: 00 No TAKE TWO (2) CAPSULE(S) BY MOUTH EVERY EIGHT HOURS NEEDED FOR COUGH AND CONGESTION. 2021-08 00:00: 00 No AMOX/K CLAV [id number] 2-14 00:00: 00 No TAKE ONE (1) TABLET BY MOUTH DAILY. 2021-08 00:00: 00 No Dose Unknown 2021-08 00:00: 00 No INHALE ONE (1) PUFF BY MOUTH EVERY 4-6 HOURS. 2021-08 00:00: 00 No Dose Unknown 2021-08 00:00: 00 No Dose Unknown 2021-08 00:00: 00 No TAKE TWO (2) TABLET(S) BY MOUTH ONCE A DAY FOR 5 DAYS. 2021-08 00:00: 00 No Dose Unknown 04-21 00:00: 00 No TAKE ONE (1) TABLET(S) BY MOUTH ONCE A DAY. 04-21 00:00: 00 No Dose Unknown 9- 00:00: 00 No Dose Unknown 2022-0 9-06 00:00: 00 No TAKE ONE (1) TABLET(S) BY MOUTH ONCE A DAY. 2021-0 04-21 00:00: 00 No Dose Unknown 0 04-21 00:00: 00 No Dose Unknown 0 04-21 00:00: 00 No TAKE ONE (1) TABLET(S) BY MOUTH ONCE A DAY. 2021-0 04-21 00:00: 00 No Dose Unknown 0 04-21 00:00: 00 No TAKE 1 TABLET DAILY. 0 01-20 00:00: 00 No TAKE 1 TABLET DAILY. 2021-0 01-20 00:00: 00 No lisinopril 20 mg tablet 0 01-20 00:00: 00 No 1mg Dose Unknown 0 01-05 00:00: 00 No Dose Unknown 0 01-05 00:00: 00 No Dose Unknown 0 01-05 00:00: 00 No Dose Unknown 0 01-05 00:00: 00 No Dose Unknown 0 01-05 00:00: 00 No Dose Unknown 0 01-05 00:00: 00 No Dose Unknown 0 01-05 00:00: 00 No Dose Unknown 0 01-05 00:00: 00 No Dose Unknown 0 01-05 00:00: 00 No lisinopril 20 mg tablet 2021-0 2- 00:00: 00 No 1mg lisinopril 20 mg tablet 2021-0 2- 00:00: 00 No 1mg lisinopril 20 mg tablet 2021-0 2- 00:00: 00 No 1mg lisinopril 20 mg tablet 2021-0 2- 00:00: 00 No 1mg lisinopril 20 mg tablet 2021-0 2- 00:00: 00 No 1mg lisinopril 20 mg tablet 2021-0 2- 00:00: 00 No 1mg Claritin 10 mg tablet 2020-08 2- 00:00: 00 No 1mg amoxicillin 500 mg capsule 2020-08 2- 00:00: 00 No 1mg Claritin 10 mg tablet 2020-08 2- 00:00: 00 No 1mg amoxicillin 500 mg capsule 2020-08 2- 00:00: 00 No 1mg Claritin 10 mg tablet 2020-08 2- 00:00: 00 No 1mg amoxicillin 500 mg capsule 2020-08 2- 00:00: 00 No 1mg Dose Unknown 2020-08 0-14 00:00: 00 No Dose Unknown 2020-08 014 00:00: 00 No loratadine- pseudoephed rine ER 10 mg-240 mg tablet,exte nded [id number] 2020-08 0-14 00:00: 00 No 1mg Dose Unknown 2020-08 0-13 00:00: 00 No Dose Unknown 2020-08 0 00:00: 00 No Bromfed DM 2 mg-30 mg-10 mg/5 mL oral syrup 2020-08 0- 00:00: 00 No 10mg/5 mL prednisone 50 mg tablet 8- 00:00: 00 No mg diphenhydra mine 50 mg capsule 8- 00:00: 00 No mg prednisone 50 mg tablet 8- 00:00: 00 No mg prednisone 50 mg tablet 8- 00:00: 00 No mg diphenhydra mine 50 mg capsule 8- 00:00: 00 No mg diphenhydra mine 50 mg capsule 8- 00:00: 00 No mg lisinopril 20 mg tablet 7- 00:00: 00 No 1mg lisinopril 20 mg tablet 7- 00:00: 00 No 1mg lisinopril 20 mg tablet 7 00:00: 00 No 1mg azithromyci n 250 mg tablet 4- 00:00: 00 No 1mg azithromyci n 250 mg tablet 4- 00:00: 00 No 1mg azithromyci n 250 mg tablet 4- 00:00: 00 No 1mg lisinopril 20 mg tablet 4- 00:00: 00 No 1mg prednisone 20 mg tablet 4- 00:00: 00 No 1mg loratadine 10 mg tablet 4- 00:00: 00 No 1mg cyclobenzap rine 5 mg tablet 0 4-21 00:00: 00 No 12mg lisinopril 20 mg tablet 0 4-21 00:00: 00 No 1mg prednisone 20 mg tablet 0 4-21 00:00: 00 No 1mg loratadine 10 mg tablet 0 4-21 00:00: 00 No 1mg cyclobenzap rine 5 mg tablet 0 4-21 00:00: 00 No 12mg lisinopril 20 mg tablet 0 4- 00:00: 00 No 1mg prednisone 20 mg tablet 0 4- 00:00: 00 No 1mg loratadine 10 mg tablet 0 - 00:00: 00 No 1mg cyclobenzap rine 5 mg tablet - 00:00: 00 No 12mg Macrobid 100 mg capsule 0 3-19 00:00: 00 No 1mg Macrobid 100 mg capsule 0 3-19 00:00: 00 No 1mg Macrobid 100 mg capsule 0 3-19 00:00: 00 No 1mg lisinopril 20 mg tablet 2019-08 0- 00:00: 00 No 1mg lisinopril 20 mg tablet 2019-08 0- 00:00: 00 No 1mg lisinopril 20 mg tablet 2019-08 0 00:00: 00 No 1mg lisinopril 20 mg tablet 2019-08 0-06 00:00: 00 No 1mg azithromyci n 250 mg tablet 2019-08 0-06 00:00: 00 No 1mg prednisone 20 mg tablet 2019-08 0-06 00:00: 00 No mg lisinopril 20 mg tablet 2019-08 0-06 00:00: 00 No 1mg azithromyci n 250 mg tablet 2019-08 0-06 00:00: 00 No 1mg prednisone 20 mg tablet 2019-08 0- 00:00: 00 No mg lisinopril 20 mg tablet 2019-08 0- 00:00: 00 No 1mg azithromyci n 250 mg tablet 2019-08 0-06 00:00: 00 No 1mg prednisone 20 mg tablet 2019-08 0- 00:00: 00 No mg lisinopril 20 mg tablet 02-21 00:00: 00 No 1mg lisinopril 20 mg tablet 02-21 00:00: 00 No 1mg lisinopril 20 mg tablet 02-21 00:00: 00 No 1mg lisinopril 20 mg tablet 01-17 00:00: 00 No 1mg azithromyci n 250 mg tablet 01-17 00:00: 00 No 1mg lisinopril 20 mg tablet 01-17 00:00: 00 No 1mg azithromyci n 250 mg tablet 01-17 00:00: 00 No 1mg lisinopril 20 mg tablet 01-17 00:00: 00 No 1mg azithromyci n 250 mg tablet 01-17 00:00: 00 No 1mg Vitamin D2 1,250 mcg (50,000 unit) capsule 10-12 00:00: 00 No 1(50,00 0 unit) Vitamin D2 1,250 mcg (50,000 unit) capsule 10-12 00:00: 00 No 1(50,00 0 unit) Vitamin D2 1,250 mcg (50,000 unit) capsule 10-12 00:00: 00 No 1(50,00 0 unit) Augmentin 875 mg-125 mg tablet 2 00:00: 00 No 1mg prednisone 20 mg tablet 2 00:00: 00 No mg Augmentin 875 mg-125 mg tablet 2 00:00: 00 No 1mg prednisone 20 mg tablet 2 00:00: 00 No mg Augmentin 875 mg-125 mg tablet 2 00:00: 00 No 1mg prednisone 20 mg tablet 2 00:00: 00 No mg Vitamin D2 1,250 mcg (50,000 unit) capsule 2018-08 00:00: 00 No 1(50,00 0 unit) Vitamin D2 1,250 mcg (50,000 unit) capsule 2018-08 00:00: 00 No 1(50,00 0 unit) Vitamin D2 1,250 mcg (50,000 unit) capsule 2018-08 00:00: 00 No 1(50,00 0 unit) lisinopril 20 mg tablet 2018-08 2 00:00: 00 No 1mg lisinopril 20 mg tablet 2018-08 2 00:00: 00 No 1mg lisinopril 20 mg tablet 2018-08 2 00:00: 00 No 1mg prednisone 20 mg tablet 05-10 00:00: 00 No 1mg fluticasone propionate 50 mcg/actuati on nasal spray,suspe nsion 05-10 00:00: 00 No 2mcg/ac tuation promethazin e-DM 6.25 mg-15 mg/5 mL oral syrup 05-10 00:00: 00 No 5mg/5 mL prednisone 20 mg tablet 05-10 00:00: 00 No 1mg fluticasone propionate 50 mcg/actuati on nasal spray,suspe nsion 05-10 00:00: 00 No 2mcg/ac tuation promethazin e-DM 6.25 mg-15 mg/5 mL oral syrup 05-10 00:00: 00 No 5mg/5 mL prednisone 20 mg tablet 05-10 00:00: 00 No 1mg fluticasone propionate 50 mcg/actuati on nasal spray,suspe nsion 05-10 00:00: 00 No 2mcg/ac tuation promethazin e-DM 6.25 mg-15 mg/5 mL oral syrup 05-10 00:00: 00 No 5mg/5 mL lisinopril 20 mg tablet 04-14 00:00: 00 No 1mg amoxicillin 500 mg tablet 04-14 00:00: 00 No 1mg lisinopril 20 mg tablet 04-14 00:00: 00 No 1mg amoxicillin 500 mg tablet 04-14 00:00: 00 No 1mg lisinopril 20 mg tablet 04-14 00:00: 00 No 1mg amoxicillin 500 mg tablet 04-14 00:00: 00 No 1mg Vitamin D2 50,000 unit capsule 01-27 00:00: 00 No 1unit Vitamin D2 50,000 unit capsule 01-27 00:00: 00 No 1unit Vitamin D2 50,000 unit capsule 01-27 00:00: 00 No 1unit prednisone 20 mg tablet 01-25 00:00: 00 No 1mg amoxicillin 875 mg-potassiu m clavulanate 125 mg tablet 01-25 00:00: 00 No 1mg meclizine 25 mg tablet 01-25 00:00: 00 No 5mg prednisone 20 mg tablet 01-25 00:00: 00 No 1mg amoxicillin 875 mg-potassiu m clavulanate 125 mg tablet 01-25 00:00: 00 No 1mg meclizine 25 mg tablet 01-25 00:00: 00 No 5mg prednisone 20 mg tablet 01-25 00:00: 00 No 1mg amoxicillin 875 mg-potassiu m clavulanate 125 mg tablet 01-25 00:00: 00 No 1mg meclizine 25 mg tablet 01-25 00:00: 00 No 5mg lisinopril 20 mg tablet 01-02 00:00: 00 No 1mg lisinopril 20 mg tablet 01-02 00:00: 00 No 1mg lisinopril 20 mg tablet 01-02 00:00: 00 No 1mg metronidazo le 0.75 % topical gel 12-12 00:00: 00 No 1% amoxicillin 500 mg capsule 12-12 00:00: 00 No 1mg metronidazo le 0.75 % topical gel 12-12 00:00: 00 No 1% amoxicillin 500 mg capsule 12-12 00:00: 00 No 1mg metronidazo le 0.75 % topical gel 12-12 00:00: 00 No 1% amoxicillin 500 mg capsule 12-12 00:00: 00 No 1mg lisinopril 20 mg tablet 12-08 00:00: 00 No 1mg methylpredn isolone 4 mg tablets in a dose pack 12-08 00:00: 00 No 1mg meclizine 25 mg tablet 12-08 00:00: 00 No 1mg promethazin e 12.5 mg tablet 12-08 00:00: 00 No 1mg fluticasone propionate 50 mcg/actuati on nasal spray,suspe nsion 12-08 00:00: 00 No 1mcg/ac tuation lisinopril 20 mg tablet 12-08 00:00: 00 No 1mg methylpredn isolone 4 mg tablets in a dose pack 12-08 00:00: 00 No 1mg meclizine 25 mg tablet 12-08 00:00: 00 No 1mg promethazin e 12.5 mg tablet 12-08 00:00: 00 No 1mg fluticasone propionate 50 mcg/actuati on nasal spray,suspe nsion 12-08 00:00: 00 No 1mcg/ac tuation lisinopril 20 mg tablet 12-08 00:00: 00 No 1mg methylpredn isolone 4 mg tablets in a dose pack 12-08 00:00: 00 No 1mg meclizine 25 mg tablet 12-08 00:00: 00 No 1mg promethazin e 12.5 mg tablet 12-08 00:00: 00 No 1mg fluticasone propionate 50 mcg/actuati on nasal spray,suspe nsion 12-08 00:00: 00 No 1mcg/ac tuation Azithromyci n Azithromyci n No Azithromyc in [facility] Amoxicillin -Pot Clavulanate Amoxicillin -Pot Clavulanate No Amoxicilli n-Pot Clavulanat e Vital Signs Vital Name Observation Time Observation Value Comments S ource Systolic blood pressure 2023-01-18 13:32:00 124 mm[Hg] Chana o [facility] Diastolic blood pressure 2023-01-18 13:32:00 84 mm[Hg] Chana o [facility] Heart rate 2023-01-18 13:32:00 65 /min [facility] Body temperature 2023-01-18 13:32:00 36.33 Debbie [facility] Respiratory rate 2023-01-18 13:32:00 18 /min [facility] Body height 2023-01-18 13:32:00 170.2 cm [facility] Body weight 2023-01-18 13:32:00 86.183 kg [facility] BMI 2023-01-18 13:32:00 29.76 kg/m2 [facility] Oxygen saturation in Arterial blood by Pulse oximetry 2023-01-18 13:32:00 100 /min [facility] Respiratory rate 2023-01-04 14:25:00 14 /min [facility] Oxygen saturation in Arterial blood by Pulse oximetry 2023-01-04 14:25:00 97 /min [facility] Systolic blood pressure 2023-01-04 14:22:00 127 mm[Hg] [facility] Diastolic blood pressure 2023-01-04 14:22:00 78 mm[Hg] [facility] Heart rate 2023-01-04 14:13:00 51 /min Unive [facility] Body temperature 2023-01-04 13:49:00 36.28 Debbie [facility] Body height 2022-12-29 13:40:00 170.2 cm [facility] Body weight 2022-12-29 13:40:00 86.183 kg [facility] BMI 2022-12-29 13:40:00 29.76 kg/m2 [facility] Respiratory rate 2023-01-04 14:05:00 14 /min [facility] Oxygen saturation in Arterial blood by Pulse oximetry 2023-01-04 14:05:00 96 /min [facility] Systolic blood pressure 2023-01-04 14:01:00 130 mm[Hg] [facility] Diastolic blood pressure 2023-01-04 14:01:00 80 mm[Hg] [facility] Heart rate 2023-01-04 14:00:00 51 /min Unive [facility] Body temperature 2023-01-04 13:49:00 36.28 Debbie [facility] Body height 2022-12-29 13:40:00 170.2 cm [facility] Body weight 2022-12-29 13:40:00 86.183 kg [facility] BMI 2022-12-29 13:40:00 29.76 kg/m2 [facility] Systolic blood pressure 2022-12-07 13:35:00 116 mm[Hg] [facility] Diastolic blood pressure 2022-12-07 13:35:00 75 mm[Hg] [facility] Heart rate 2022-12-07 13:35:00 70 /min Unive [facility] Body temperature 2022-12-07 13:35:00 36.5 Debbie [facility] Respiratory rate 2022-12-07 13:35:00 18 /min [facility] Body height 2022-12-07 13:35:00 170.2 cm [facility] Body weight 2022-12-07 13:35:00 88.451 kg [facility] BMI 2022-12-07 13:35:00 30.54 kg/m2 [facility] Oxygen saturation in Arterial blood by Pulse oximetry 2022-12-07 13:35:00 99 /min [facility] Systolic blood pressure 2022-09-07 14:48:00 110 mm[Hg] [facility] Diastolic blood pressure 2022-09-07 14:48:00 74 mm[Hg] [facility] Heart rate 2022-09-07 14:48:00 69 /min [facility] Body temperature 2022-09-07 14:48:00 36.44 Debbie [facility] Respiratory rate 2022-09-07 14:48:00 18 /min [facility] Body height 2022-09-07 14:48:00 170.2 cm [facility] Body weight 2022-09-07 14:48:00 89.903 kg [facility] BMI 2022-09-07 14:48:00 31.04 kg/m2 [facility] Oxygen saturation in Arterial blood by Pulse oximetry 2022-09-07 14:48:00 100 /min [facility] height 2020-07-04 10:00:00 67.5 [in_i] Comm on [facility] weight 2020-07-04 10:00:00 186 [lb_av] Comm on [facility] temperature 2020-07-04 10:00:00 97.5 [degF] Com mon [facility] bmi 2020-07-04 10:00:00 28.70 kg/m2 [facility] blood pressure systolic 2020-07-04 10:00:00 118 mm[Hg] [facility] blood pressure diastolic 2020-07-04 10:00:00 74 mm[Hg] [facility] BP Systolic 2022-08-05 14:23:00 131 mm[Hg] [...] 16.00 /min Procedures Procedure Date / Time Performed Performing Clinician Source MASS EXCISION 2023-01-04 12:40:00 Barak Lombardo [facility] POCT TEST 2023-01-04 12:32:00 Barak Lombardo [facility] POCT TEST 2023-01-04 12:32:00 Barak Lombardo [facility] DAY SURGERY - ADC 2023-01-04 05:01:00 Doctor Radha ssigned, [place] [facility] CONSENT/REFUSAL FOR DIAGNOSIS AND TREATMENT 2022-12-22 20:45:33 Doctor Unassigned, [place] [facility] ASSIGNMENT OF BENEFITS 2022-12-22 20:45:12 Docto r Unassigned, [place] [facility] EXTERNAL PROVIDER RECORDS 2022-09-21 06:01:00 Do ctor Unassigned, [place] [facility] AUTHORIZATION FOR RELEASE OF PHI 2022-09-06 06:01:00 Doctor Unassigned, [place] [facility] REFERRAL- REQUEST/RESPONSE 2022-08-24 06:01:00 D octor Unassigned, [place] [facility] CT ANKLE LEFT WO CONTRAST 2022-07-24 16:01:00 Requisit ion, Paper [facility] US ABDOMEN COMPLETE 2022-07-24 15:44:15 Kaylynn Ruiz [facility] PATIENT FINANCIAL POLICY 2022-07-24 14:17:20 Doctor Unassigned, [place] [facility] NO SHOW OR MISSED APPOINTMENT POLICY ACKNOWLEDGEMENT 2022-07-24 14:16:10 Doctor Unassigned, [place] [facility] NOTICE OF PRIVACY PRACTICES 2022-07-24 14:15:56 Doctor Unassigned, [place] [facility] CONSENT/REFUSAL FOR DIAGNOSIS AND TREATMENT 2022-07-24 14:15:43 Doctor Unassigned, [place] [facility] ASSIGNMENT OF BENEFITS 2022-07-24 14:15:27 Docto r Unassigned, [place] [facility] Plan of Care Planned Activity Planned Date Details Comments Source Goal Plan of Care Note [code = 08070-5] Goal Plan of Care Note [code = 95910-0] Goal Plan of Care Note [code = 91465-7] Goal Plan of Care Note [code = 30390-5] Goal Plan of Care Note [code = 15252-3] Goal Plan of Care Note [code = 65088-9] Goal Plan of Care Note [code = 61091-1] Goal Plan of Care Note [code = 64343-2] Goal Plan of Care Note [code = 71042-8] Goal Plan of Care Note [code = 76194-5] Goal Plan of Care Note [code = 08229-8] Goal Plan of Care Note [code = 82153-1] Goal Plan of Care Note [code = 19704-4] Goal Plan of Care Note [code = 18401-3] Goal Plan of Care Note [code = 34203-1] Goal Plan of Care Note [code = 59384-7] Goal Plan of Care Note [code = 26399-1] Goal Plan of Care Note [code = 13977-7] Goal Plan of Care Note [code = 54015-5] Goal Plan of Care Note [code = 29842-5] Goal Plan of Care Note [code = 52672-7] Goal Plan of Care Note [code = 35462-4] Goal Plan of Care Note [code = 65958-2] Goal Plan of Care Note [code = 42891-5] Goal Plan of Care Note [code = 56663-5] Goal Plan of Care Note [code = 28868-8] Goal Plan of Care Note [code = 51927-3] Goal Plan of Care Note [code = 17625-2] Goal Plan of Care Note [code = 83755-9] Goal Plan of Care Note [code = 28328-0] Goal Plan of Care Note [code = 63505-8] Goal Plan of Care Note [code = 97637-6] Goal Plan of Care Note [code = 57680-2] Goal Plan of Care Note [code = 96529-7] Goal Plan of Care Note [code = 18147-0] Goal Plan of Care Note [code = 25968-4] Goal Plan of Care Note [code = 64244-4] Goal Plan of Care Note [code = 54606-7] Goal Plan of Care Note [code = 20069-5] Goal Plan of Care Note [code = 17999-8] Goal Plan of Care Note [code = 60480-2] Goal Plan of Care Note [code = 96059-0] Goal Plan of Care Note [code = 26402-9] Goal Plan of Care Note [code = 23468-2] Goal Plan of Care Note [code = 97722-1] Goal Plan of Care Note [code = 89939-6] Goal Plan of Care Note [code = 95731-5] Goal Plan of Care Note [code = 30304-4] Goal Plan of Care Note [code = 17409-4] Goal Plan of Care Note [code = 49989-0] Goal Plan of Care Note [code = 38260-5] Goal Plan of Care Note [code = 53575-4] Goal Plan of Care Note [code = 42680-6] Goal Plan of Care Note [code = 25836-2] Goal Plan of Care Note [code = 34390-3] Goal Plan of Care Note [code = 58903-5] Goal Plan of Care Note [code = 73981-2] Goal Plan of Care Note [code = 18188-2] Goal Plan of Care Note [code = 30227-6] Goal Plan of Care Note [code = 59434-4] Goal Plan of Care Note [code = 89761-4] Goal Plan of Care Note [code = 16466-3] Goal Plan of Care Note [code = 16115-6] Goal Plan of Care Note [code = 23187-1] Goal Plan of Care Note [code = 94095-8] Goal Plan of Care Note [code = 05288-9] Goal Plan of Care Note [code = 75785-1] Goal Plan of Care Note [code = 34981-3] Goal Plan of Care Note [code = 04973-2] Goal Plan of Care Note [code = 49614-7] Goal Plan of Care Note [code = 26560-0] Goal Plan of Care Note [code = 46693-2] Goal Plan of Care Note [code = 56142-4] Goal Plan of Care Note [code = 63595-7] Goal Plan of Care Note [code = 80572-4] Goal Plan of Care Note [code = 04507-4] Goal Plan of Care Note [code = 66416-0] Goal Plan of Care Note [code = 01846-2] Goal Plan of Care Note [code = 19237-3] Goal Plan of Care Note [code = 39444-7] Goal Plan of Care Note [code = 71179-1] Goal Plan of Care Note [code = 58033-1] Goal Plan of Care Note [code = 53409-6] Goal Plan of Care Note [code = 01501-4] Goal Plan of Care Note [code = 27510-4] Goal Plan of Care Note [code = 91228-3] Goal Plan of Care Note [code = 58151-0] Goal Plan of Care Note [code = 78487-4] Goal Plan of Care Note [code = 06137-9] Goal Plan of Care Note [code = 62104-8] Goal Plan of Care Note [code = 17430-1] Goal Plan of Care Note [code = 65471-6] Goal Plan of Care Note [code = 84433-2] Goal Plan of Care Note [code = 61209-0] Goal Plan of Care Note [code = 17026-7] Goal Plan of Care Note [code = 90843-8] Goal Plan of Care Note [code = 23280-4] Goal Plan of Care Note [code = 33179-9] Goal Plan of Care Note [code = 98761-8] Goal Plan of Care Note [code = 40455-1] Goal Plan of Care Note [code = 90954-8] Goal Plan of Care Note [code = 18102-7] Goal Plan of Care Note [code = 52599-0] Goal Plan of Care Note [code = 09187-7] Goal Plan of Care Note [code = 74359-6] Goal Plan of Care Note [code = 79745-8] Goal Plan of Care Note [code = 90217-4] Encounters Start Date/Time End Date/Time Encounter Type Admission Type Attending Page [facility] Care Department Encounter ID Source 2022-12-16 09:54:11 Outpatient R BARAK LOMBARDO [facility] [id number] [facility] 2021-09-10 12:06:47 Outpatient [facility] [id number] [facility] 2023-06-30 11:02:01 2023-06-30 11:02:01 Outpatient [facility] [id number] Jesus Richey 2023-05-06 16:01:33 2023-05-06 16:01:33 Outpatient [facility] [id number] Jesus Richey 2023-01-18 08:15:00 2023-01-18 08:30:00 Office Visit Barak Lombardo [facility] 1.2.840.114 350.1.13.10 4.2.7.2.686 [id number] [facility] 2023-01-18 08:15:00 2023-01-18 08:15:00 Outpatient R BARAK LOMBARDO [facility] [id number] [facility] 2023-01-05 00:00:00 2023-01-05 00:00:00 Telephone Barak Lombardo [facility] 1.2.840.114 350.1.13.10 4.2.7.2.686 [id number] [facility] 2023-01-04 07:12:00 2023-01-04 09:31:00 Outpatient R BARAK LOMBARDO [facility] [id number] [facility] 2023-01-04 07:12:00 2023-01-04 09:31:00 Hospital Encounter Barak Lombardo [facility] 1.2.840.114 350.1.13.10 4.2.7.2.686 [id number] [facility] 2023-01-04 07:45:00 2023-01-04 09:05:00 Surgery Barak Lombardo [facility] 1.2.840.114 350.1.13.10 4.2.7.2.686 [id number] [facility] 2022-12-28 00:00:00 2022-12-28 00:00:00 Prep For Surgery Barak Lombardo [facility] 1.2.840.114 350.1.13.10 4.2.7.2.686 [id number] [facility] 2022-12-28 00:00:00 2022-12-28 00:00:00 Telephone Barak Lombardo [facility] 1.2.840.114 350.1.13.10 4.2.7.2.686 [id number] [facility] 2022-12-22 15:42:57 2022-12-22 23:59:00 [id number] 2022-12-22 15:42:57 2022-12-22 23:59:00 Hospital Encounter Yen Love [facility] 1.2.840.114 350.1.13.10 4.2.7.2.686 [id number] [facility] 2022-12-15 00:00:00 2022-12-15 00:00:00 Telephone Barak Lombardo [facility] 1.2.840.114 350.1.13.10 4.2.7.2.686 [id number] [facility] 2022-12-07 08:00:00 2022-12-07 09:42:20 Outpatient R BARAK LOMBARDO [facility] [id number] [facility] 2022-12-07 08:00:00 2022-12-07 09:42:20 Office Visit Barak Lombardo [facility] 1.2.840.114 350.1.13.10 4.2.7.2.686 [id number] [facility] 2022-12-01 00:00:00 2022-12-01 00:00:00 (TEL) [facility] [id number] [facility] 2022-11-19 00:00:00 2022-11-19 00:00:00 Telephone Carmen Hale [facility] 1.2.840.114 350.1.13.10 4.2.7.2.686 [id number] [facility] 2022-11-03 14:18:57 2022-11-03 14:18:[address] [facility] [id number] Jesus Richey 2022-09-21 00:00:00 2022-09-21 00:00:00 Orders Only Doctor Unassigned, [facility] 1.2.840.114 350.1.13.10 4.2.7.2.686 [id number] [facility] 2022-09-21 00:00:00 2022-09-21 00:00:00 Telephone Carmen Hale [facility] 1.2.840.114 350.1.13.10 4.2.7.2.686 [id number] [facility] 2022-09-07 09:30:00 2022-09-07 10:00:00 Office Visit Carmen Hale [facility] 1.2.840.114 350.1.13.10 4.2.7.2.686 [id number] [facility] 2022-09-07 09:30:00 2022-09-07 09:30:00 Outpatient BARAK NOBLE [facility] [id number] [facility] 2022-09-07 00:00:00 2022-09-07 00:00:00 Letter (Out) Carmen Hale [facility] 1.2.840.114 350.1.13.10 4.2.7.2.686 [id number] [facility] 2022-09-06 00:00:00 2022-09-06 00:00:00 Orders Only Doctor Unassigned, [facility] 1.2.840.114 350.1.13.10 4.2.7.2.686 [id number] [facility] 2022-08-25 11:17:49 2022-08-25 11:17:[address] [facility] [id number] Jesus Richey 2022-08-24 00:00:00 2022-08-24 00:00:00 Orders Only Doctor Unassigned, [place] [id number] 350.1.13.10 4.2.7.2.686 [id number] [facility] 2022-08-18 00:00:00 2022-08-18 00:00:00 Outpatient R RADIOLOGY [facility] [id number] [facility] 2022-08-05 14:17:30 2022-08-05 14:17:[address] [facility] [id number] Jesus Richey 2022-08-05 00:00:00 2022-08-05 00:00:00 Outpatient Visit [id number] 2022-08-03 14:55:37 2022-08-03 14:55:[address] [facility] [id number] Jesus Richey 2022-07-29 09:21:42 2022-07-29 09:21:[address] [facility] [id number] Jesus Richey 2022-07-29 00:00:00 2022-07-29 00:00:00 Outpatient Visit [id number] 2022-07-24 08:19:52 2022-07-24 23:59:00 Hospital Encounter Radiology [facility] 1.2.840.114 350.1.13.10 4.2.7.2.686 [id number] [facility] 2022-07-24 08:19:52 2022-07-24 23:59:00 Outpatient R RADIOLOGY [facility] [id number] [facility] 2022-07-24 08:00:00 2022-07-24 08:18:00 Hospital Encounter Radiology [facility] 1.2.840.114 350.1.13.10 4.2.7.2.686 [id number] [facility] 2022-04-24 00:00:00 2022-04-24 00:00:00 Outpatient Visit [id number] 2020-07-04 00:00:00 2020-07-04 00:00:00 OFFICE VISIT NEW PT LEVEL 3 [facility]C ST[facility] [id number] [facility] Results Test Description Test Time Test Comments Results Result Co [id number] 12:32:00* Test Item Value Reference Range Interpretation Comme nts POCT PREG (test code = 1605) Negative On board controls acceptable with C Line (test code = 3574) Yes POCT PREG LOT # (test code = 3575) POCT PREG TEST DATE ( test code = 3576) [facility] W/AUTO DIFF WITH [id number] 03:11:12* Test Item Value Reference Range Interpretation Comme nts WBC (test code = 1001) 7.2 K/UL 3.5-11.0 RBC (test code = 1002) 4.64 M/UL 3.80-5.40 HEMOGLOBIN (test code = 1003) 12.9 G/DL 11.5-15.5 HEMATOCRIT (test code = 1004) 38.4 % 34.0-45.0 MCV (test code = 1005) 82.8 fL 80.0-99.0 MCH (test code = 1006) 27.8 PG 25.0-33.0 MCHC (test code = 1007) 33.6 G/DL 31.0-36.0 RDW (test code = 1038) 12.3 % 11.5-15.0 NEUTROPHILS (test code = 1008) 58.9 % LYMPHOCYTES (test code = 1010) 22.9 % MONOCYTES (test code = 1011) 7.8 % EOSINOPHILS (test code = 1012) 8.8 % BASOPHILS (test code = 1013) 1.0 % IMMATURE GRANULOCYTES (test code = 1036) 0.6 % NUCLEATED RBCS (test code = 1065) 0.0 /100 WBC'S See_Comment [Automated message] The system which generated this result transmitted reference range: 0.0. The reference range was not used to interpret this result as normal/abnormal. PLATELET COUNT (test code = 1015) 244 K/UL 130-400 ABSOLUTE NEUTROPHILS (test code = 1066) 4.23 K/UL 1.50-7.50 ABSOLUTE LYMPHOCYTES (test code = 1067) 1.64 K/UL 1.00-4.00 ABSOLUTE MONOCYTES (test code = 1068) 0.56 K/UL 0.20-1.00 ABSOLUTE EOSINOPHILS (test code = 1040) 0.63 K/UL 0.00-0.50 H ABSOLUTE BASOPHILS (test code = 1069) 0.07 K/UL 0.00-0.20 ABS IMMATURE GRANULOCYTES (test code = 1020) 0.04 K/UL 0.00-0.10 ABS NUCLEATED RBCS (test code = 45020) 0.00 K/UL 0.00-0.11 UNLESS OTHER MAYES INDICATED, ALL TESTING PERFORMED ATCLINICAL PATHOLOGY [employer] [address] [place] [address] RN OBSERVATION: NARCISO MIDDLETON M.D. CLIA NUMBER [id number] [facility] [place]. [id number] 11:34:01* Test Item Value Reference Range Interpretation Comme [facility] D-DIMER (test code = 1405) <0.27 UG/ML FEU See_Comment NOTE: Provided reference range is established for evaluation of Deep Venous Thrombosis/Pulmonary Embolus (DVT/PE). Results below cutoff value of <=0.49 UG/ML FEU have a high negative predictive value forDVT/PE. No reference range is established for disseminatedintra-vascu lar coagulation (DIC). UNLESS OTHERWISE INDICATED, ALL TESTING PERFORMED [facility] [employer] [address] [place] [address] RN OBSERVATION: NARCISO MIDDLETON M.D. CLIA NUMBER [id number] [facility] [place]. [id number] [Automated message] The system which generated this result transmitted reference range: <=0.49. The reference range was not used to interpret this result as normal/abnormal. [id number] 00:00:00* Test Item Value Reference Range Interpretation Comme [facility] D-DIMER (test code = 1405) <0.27 UG/MLFEU TSH, THIRD [id number] 04:20:00* Test Item Value Reference Range Interpretation Comme [facility] TSH, THIRD GENERATION (test code = 2821) 1.390 UIU/ML 0.400-4.100 COMPREHENSIVE METABOLIC [id number] 04:03:09* Test Item Value Reference Range Interpretation Comme nts GLUCOSE (test code = 2217) 100 MG/DL 70-99 H BUN (test code = 2208) 19 MG/DL 6-20 CREATININE (test code = 2214) 0.95 MG/DL 0.60-1.30 eGFR (2020 CKD-EPI) (test code = 69520) 76 ML/MIN/1.73 >60 CALC BUN/CREAT (test code = 2235) 20 RATIO 6-28 SODIUM (test code = 2231) 140 MEQ/L 133-146 POTASSIUM (test code = 2228) 4.3 MEQ/L 3.5-5.4 CHLORIDE (test code = 2215) 104 MEQ/L 95-107 CARBON DIOXIDE (test code = 2206) 26 MEQ/L 19-31 CALCIUM (test code = 2209) 9.3 MG/DL 8.5-10.5 PROTEIN, TOTAL (test code = 2229) 6.5 G/DL 6.1-8.3 ALBUMIN (test code = 2201) 4.4 G/DL 3.5-5.2 CALC GLOBULIN (test code = 2240) 2.1 G/DL 1.9-3.7 CALC A/G RATIO (test code = 2234) 2.1 RATIO 1.0-2.6 BILIRUBIN, TOTAL (test code = 7) 0.5 MG/DL See_Comment [Automated me ssage] The system which generated this result transmitted reference range: <=1.2. The reference range was not used to interpret this result as normal/abnormal. ALKALINE PHOSPHATASE (test code = 2203) 50 U/L 40-113 AST (test code = 2218) 26 U/L 9-40 ALT (test code = 2219) 19 U/L 5-40 LIPID [id number] 04:03:09* Test Item Value Reference Range Interpretation Comme nts CHOLESTEROL (test code = 2210) 142 MG/DL <200 TRIGLYCERIDES (test code = 2232) 64 MG/DL <150 HDL CHOLESTEROL (test code = 0) 50 MG/DL >39 CALC LDL CHOL (test code = 2236) 78 MG/DL <100 NOTE: CALCULATED LDL IS BASED ON LUCIANA-VAN METHOD WHICHINCLUDES ADJUSTABLE TRIGLYCERIDE:VLDL CHOLESTEROL RATIO.THIS FACTOR VARIES BY MEASURED TRIGLYCERIDE AND NON-HDLCHOLESTEROL CONCENTRATIONS WITH INCREASED CALCULATED LDL SEENIN HIGHER TRIGLYCERIDE OR LOWER NON-HDL SPECIMENS. FOR MOREINFORMATION, SEE CLIENT ANNOUNCEMENT AT [email or web address] RISK RATIO LDL/HDL (test code = 2238) 1.56 RATIO <3.22 UNLESS OTHERW ISE INDICATED, ALL TESTING PERFORMED ATCL[facility] [address] [place] [address], [place] [address] RN OBSERVATION: NARCISO MIDDLETON M.D. CLIA NUMBER [id number] [facility] [place]. [id number] TSH, THIRD GENERATION [ADDED]2022-04-25 00:00:00* Test Item Value Reference Range Interpretation Comme nts TSH, THIRD GENERATION (test code = 2821) 1.390 UIU/ML LIPID PANEL [ADDED]2022-04-25 00:00:00* Test Item Value Reference Range Interpretation Comme nts CHOLESTEROL (test code = 2210) 142 MG/DL TRIGLYCERIDES (test code = 2232) 64 MG/DL HDL CHOLESTEROL (test code = 2220) 50 MG/DL CALC LDL CHOL (test code = 2237) 78 MG/DL RISK RATIO LDL/HDL (test cod e = 2238) 1.56 RATIO COMPREHENSIVE METABOLIC PANEL [ADDED]2022-04-25 00:00:00* Test Item Value Reference Range Interpretation Comme nts GLUCOSE (test code = 2217) 100 MG/DL BUN (test code = 2208) 19 MG/DL CREATININE (test code = 2214) 0.95 MG/DL eGFR (2020 CKD-EPI) (test co de = 80997) 76 ML/MIN/1.73 CALC BUN/CREAT (test code = 2235) 20 RATIO SODIUM (test code = 2231) 140 MEQ/L POTASSIUM (test code = 2228) 4.3 MEQ/L CHLORIDE (test code = 2215) 104 MEQ/L CARBON DIOXIDE (test code = 2206) 26 MEQ/L CALCIUM (test code = 2209) 9.3 MG/DL PROTEIN, TOTAL (test code = 2229) 6.5 G/DL ALBUMIN (test code = 2201) 4.4 G/DL CALC GLOBULIN (test code = 2240) 2.1 G/DL CALC A/G RATIO (test code = 2234) 2.1 RATIO BILIRUBIN, TOTAL (test code = 2207) 0.5 MG/DL ALKALINE PHOSPHATASE (test code = 2204) 50 U/L AST (test code = 2218) 26 U/L ALT (test code = 2219) 19 U/L TSH, THIRD GENERATION [ADDED]2022-04-25 00:00:00* Test Item Value Reference Range Interpretation Comme nts TSH, THIRD GENERATION (test code = 2821) 1.390 UIU/ML LIPID PANEL [ADDED]2022-04-25 00:00:00* Test Item Value Reference Range Interpretation Comme nts CHOLESTEROL (test code = 2210) 142 MG/DL TRIGLYCERIDES (test code = 2232) 64 MG/DL HDL CHOLESTEROL (test code = 2220) 50 MG/DL CALC LDL CHOL (test code = 2237) 78 MG/DL RISK RATIO LDL/HDL (test cod e = 2238) 1.56 RATIO COMPREHENSIVE METABOLIC PANEL [ADDED]2022-04-25 00:00:00* Test Item Value Reference Range Interpretation Comme nts GLUCOSE (test code = 2217) 100 MG/DL BUN (test code = 2208) 19 MG/DL CREATININE (test code = 2214) 0.95 MG/DL eGFR (2020 CKD-EPI) (test co de = 39563) 76 ML/MIN/1.73 CALC BUN/CREAT (test code = 2235) 20 RATIO SODIUM (test code = 2231) 140 MEQ/L POTASSIUM (test code = 2228) 4.3 MEQ/L CHLORIDE (test code = 2215) 104 MEQ/L CARBON DIOXIDE (test code = 2206) 26 MEQ/L CALCIUM (test code = 2209) 9.3 MG/DL PROTEIN, TOTAL (test code = 2229) 6.5 G/DL ALBUMIN (test code = 2201) 4.4 G/DL CALC GLOBULIN (test code = 2240) 2.1 G/DL CALC A/G RATIO (test code = 2234) 2.1 RATIO BILIRUBIN, TOTAL (test code = 2207) 0.5 MG/DL ALKALINE PHOSPHATASE (test code = 2204) 50 U/L AST (test code = 2218) 26 U/L ALT (test code = 2219) 19 U/L TSH, THIRD GENERATION [ADDED]2022-04-25 00:00:00* Test Item Value Reference Range Interpretation Comme nts TSH, THIRD GENERATION (test code = 2821) 1.390 UIU/ML LIPID PANEL [ADDED]2022-04-25 00:00:00* Test Item Value Reference Range Interpretation Comme nts CHOLESTEROL (test code = 2210) 142 MG/DL TRIGLYCERIDES (test code = 2232) 64 MG/DL HDL CHOLESTEROL (test code = 2220) 50 MG/DL CALC LDL CHOL (test code = 2237) 78 MG/DL RISK RATIO LDL/HDL (test cod e = 2238) 1.56 RATIO COMPREHENSIVE METABOLIC PANEL [ADDED]2022-04-25 00:00:00* Test Item Value Reference Range Interpretation Comme nts GLUCOSE (test code = 2217) 100 MG/DL BUN (test code = 2208) 19 MG/DL CREATININE (test code = 2214) 0.95 MG/DL eGFR (2020 CKD-EPI) (test co de = 98136) 76 ML/MIN/1.73 CALC BUN/CREAT (test code = 2235) 20 RATIO SODIUM (test code = 2231) 140 MEQ/L POTASSIUM (test code = 2228) 4.3 MEQ/L CHLORIDE (test code = 2215) 104 MEQ/L CARBON DIOXIDE (test code = 2206) 26 MEQ/L CALCIUM (test code = 2209) 9.3 MG/DL PROTEIN, TOTAL (test code = 2229) 6.5 G/DL ALBUMIN (test code = 2201) 4.4 G/DL CALC GLOBULIN (test code = 2240) 2.1 G/DL CALC A/G RATIO (test code = 2234) 2.1 RATIO BILIRUBIN, TOTAL (test code = 2207) 0.5 MG/DL ALKALINE PHOSPHATASE (test code = 2204) 50 U/L AST (test code = 2218) 26 U/L ALT (test code = 2219) 19 U/L VITAMIN D, 25 [id number] 04:31:09* Test Item Value Reference Range Interpretation Comme [facility] VITAMIN D, 25 OH (test code = 4958) 52 NG/ML SEE BELOW NOTE: 25-HYDR OXYVITAMIN D ASSAY INCLUDES 25-HYDROXYVITAMIN D2 AND D3. METHODOLOGY IS CHEMILUMINESCENT IMMUNOASSAY. INTERPRETIVE RANGES PEDIATRIC (<17 YEARS) . . . . . . . . . . . NG/ML 20-100ADULT: INSUFFICIENT . . . . . . . . . . . . . . NG/ML <20 SUBOPTIMAL . . . . . . . . . . . . . . . NG/ML 20-29 OPTIMAL . . . . . . . . . . . . . . . . . NG/ML 30-100 UNLESS OTHERWISE INDICATED, ALL TESTING PERFORMED [facility] [address] [place] [address] RN OBSERVATION: NARCISO MIDDLETON M.D. CLIA NUMBER [id number] [facility] [place]. [id number] COMPREHENSIVE METABOLIC [id number] 03:48:14* Test Item Value Reference Range Interpretation Comme nts GLUCOSE (test code = 7) 85 MG/DL 70-99 BUN (test code = 8) 19 MG/DL 6-20 CREATININE (test code = 2214) 1.00 MG/DL 0.60-1.30 eGFR (2020 CKD-EPI) (test code = ) 72 ML/MIN/1.73 >60 CALC BUN/CREAT (test code = 2234) 19 RATIO 6-28 SODIUM (test code = 2230) 140 MEQ/L 133-146 POTASSIUM (test code = 2227) 4.5 MEQ/L 3.5-5.4 CHLORIDE (test code = 2214) 102 MEQ/L 95-107 CARBON DIOXIDE (test code = 2205) 29 MEQ/L 19-31 CALCIUM (test code = 2208) 9.5 MG/DL 8.5-10.5 PROTEIN, TOTAL (test code = 2228) 6.6 G/DL 6.1-8.3 ALBUMIN (test code = 2200) 4.8 G/DL 3.5-5.2 CALC GLOBULIN (test code = 2239) 1.8 G/DL 1.9-3.7 L CALC A/G RATIO (test code = 2233) 2.7 RATIO 1.0-2.6 H BILIRUBIN, TOTAL (test code = 2206) 0.6 MG/DL See_Comment [Automated me ssage] The system which generated this result transmitted reference range: <=1.2. The reference range was not used to interpret this result as normal/abnormal. ALKALINE PHOSPHATASE (test code = 2203) 47 U/L 40-113 AST (test code = 2217) 19 U/L 9-40 ALT (test code = 2218) 17 U/L 5-40 CBC W/AUTO DIFF WITH [id number] 03:06:39* Test Item Value Reference Range Interpretation Comme nts WBC (test code = 1001) 6.7 K/UL 3.5-11.0 RBC (test code = 1002) 4.62 M/UL 3.80-5.40 HEMOGLOBIN (test code = 1003) 13.2 G/DL 11.5-15.5 HEMATOCRIT (test code = 1004) 39.0 % 34.0-45.0 MCV (test code = 1005) 84.4 fL 80.0-99.0 MCH (test code = 1006) 28.6 PG 25.0-33.0 MCHC (test code = 1007) 33.8 G/DL 31.0-36.0 RDW (test code = 1038) 12.3 % 11.5-15.0 NEUTROPHILS (test code = 1008) 51.3 % LYMPHOCYTES (test code = 1010) 28.6 % MONOCYTES (test code = 1011) 7.0 % EOSINOPHILS (test code = 1012) 11.7 % BASOPHILS (test code = 1013) 1.0 % IMMATURE GRANULOCYTES (test code = 1036) 0.4 % NUCLEATED RBCS (test code = 1065) 0.0 /100 WBC'S See_Comment [Automated messa ge] The system which generated this result transmitted reference range: 0.0. The reference range was not used to interpret this result as normal/abnormal. PLATELET COUNT (test code = 1015) 284 K/UL 130-400 ABSOLUTE NEUTROPHILS (test code = 1066) 3.41 K/UL 1.50-7.50 ABSOLUTE LYMPHOCYTES (test code = 1067) 1.91 K/UL 1.00-4.00 ABSOLUTE MONOCYTES (test code = 1068) 0.47 K/UL 0.20-1.00 ABSOLUTE EOSINOPHILS (test code = 1040) 0.78 K/UL 0.00-0.50 H ABSOLUTE BASOPHILS (test code = 1069) 0.07 K/UL 0.00-0.20 ABS IMMATURE GRANULOCYTES (test code = 1020) 0.03 K/UL 0.00-0.10 ABS NUCLEATED RBCS (test code = 17687) 0.00 K/UL 0.00-0.11 VITAMIN D, 25 [id number] 00:00:00* Test Item Value Reference Range Interpretation Comme nts VITAMIN D, 25 OH (test code = 4958) 52 NG/ML COMPREHENSIVE METABOLIC [id number] 00:00:00* Test Item Value Reference Range Interpretation Comme nts GLUCOSE (test code = 2217) 85 MG/DL BUN (test code = 2208) 19 MG/DL CREATININE (test code = 2214) 1.00 MG/DL eGFR (2020 CKD-EPI) (test co de = 70973) 72 ML/MIN/1.73 CALC BUN/CREAT (test code = 2235) 19 RATIO SODIUM (test code = 2231) 140 MEQ/L POTASSIUM (test code = 2228) 4.5 MEQ/L CHLORIDE (test code = 2215) 102 MEQ/L CARBON DIOXIDE (test code = 2206) 29 MEQ/L CALCIUM (test code = 2209) 9.5 MG/DL PROTEIN, TOTAL (test code = 2229) 6.6 G/DL ALBUMIN (test code = 2201) 4.8 G/DL CALC GLOBULIN (test code = 2240) 1.8 G/DL CALC A/G RATIO (test code = 2234) 2.7 RATIO BILIRUBIN, TOTAL (test code = 2207) 0.6 MG/DL ALKALINE PHOSPHATASE (test code = 2204) 47 U/L AST (test code = 2218) 19 U/L ALT (test code = 2219) 17 U/L CBC W/AUTO [id number] 00:00:00* Test Item Value Reference Range Interpretation Comme nts WBC (test code = 1001) 6.7 K/UL [...] = 1013) 1.0 % IMMATURE GRANULOCYTES (test code = 1036) 0.4 % NUCLEATED RBCS (test code = 1065) 0.0 /100WBC'S PLATELET COUNT (test code = 1015) 284 K/UL ABSOLUTE NEUTROPHILS (test c ode = 1066) 3.41 K/UL ABSOLUTE LYMPHOCYTES (test c ode = 1067) 1.91 K/UL ABSOLUTE MONOCYTES (test cod e = 1068) 0.47 K/UL ABSOLUTE EOSINOPHILS (test c ode = 1040) 0.78 K/UL ABSOLUTE BASOPHILS (test cod e = 1069) 0.07 K/UL ABS IMMATURE GRANULOCYTES (t est code = 1020) 0.03 K/UL ABS NUCLEATED RBCS (test cod e = 68520) 0.00 K/UL VITAMIN D, 25 [id number] 00:00:00* Test Item Value Reference Range Interpretation Comme nts VITAMIN D, 25 OH (test code = 4958) 52 NG/ML COMPREHENSIVE METABOLIC [id number] 00:00:00* Test Item Value Reference Range Interpretation Comme nts GLUCOSE (test code = 2217) 85 MG/DL BUN (test code = 2208) 19 MG/DL CREATININE (test code = 2214) 1.00 MG/DL eGFR (2020 CKD-EPI) (test co de = 50196) 72 ML/MIN/1.73 CALC BUN/CREAT (test code = 2235) 19 RATIO SODIUM (test code = 2231) 140 MEQ/L POTASSIUM (test code = 2228) 4.5 MEQ/L CHLORIDE (test code = 2215) 102 MEQ/L CARBON DIOXIDE (test code = 2206) 29 MEQ/L CALCIUM (test code = 2209) 9.5 MG/DL PROTEIN, TOTAL (test code = 2229) 6.6 G/DL ALBUMIN (test code = 2201) 4.8 G/DL CALC GLOBULIN (test code = 2240) 1.8 G/DL CALC A/G RATIO (test code = 2234) 2.7 RATIO BILIRUBIN, TOTAL (test code = 2207) 0.6 MG/DL ALKALINE PHOSPHATASE (test code = 2204) 47 U/L AST (test code = 2218) 19 U/L ALT (test code = 2219) 17 U/L CBC W/AUTO [id number] 00:00:00* Test Item Value Reference Range Interpretation Comme nts WBC (test code = 1001) 6.7 K/UL [...] = 1013) 1.0 % IMMATURE GRANULOCYTES (test code = 1036) 0.4 % NUCLEATED RBCS (test code = 1065) 0.0 /100WBC'S PLATELET COUNT (test code = 1015) 284 K/UL ABSOLUTE NEUTROPHILS (test c ode = 1066) 3.41 K/UL ABSOLUTE LYMPHOCYTES (test c ode = 1067) 1.91 K/UL ABSOLUTE MONOCYTES (test cod e = 1068) 0.47 K/UL ABSOLUTE EOSINOPHILS (test c ode = 1040) 0.78 K/UL ABSOLUTE BASOPHILS (test cod e = 1069) 0.07 K/UL ABS IMMATURE GRANULOCYTES (t est code = 1020) 0.03 K/UL ABS NUCLEATED RBCS (test cod e = 29100) 0.00 K/UL VITAMIN D, 25 [id number] 00:00:00* Test Item Value Reference Range Interpretation Comme nts VITAMIN D, 25 OH (test code = 4958) 52 NG/ML COMPREHENSIVE METABOLIC [id number] 00:00:00* Test Item Value Reference Range Interpretation Comme nts GLUCOSE (test code = 2217) 85 MG/DL BUN (test code = 2208) 19 MG/DL CREATININE (test code = 2214) 1.00 MG/DL eGFR (2020 CKD-EPI) (test co de = 21098) 72 ML/MIN/1.73 CALC BUN/CREAT (test code = 2235) 19 RATIO SODIUM (test code = 2231) 140 MEQ/L POTASSIUM (test code = 2228) 4.5 MEQ/L CHLORIDE (test code = 2215) 102 MEQ/L CARBON DIOXIDE (test code = 2206) 29 MEQ/L CALCIUM (test code = 2209) 9.5 MG/DL PROTEIN, TOTAL (test code = 2229) 6.6 G/DL ALBUMIN (test code = 2201) 4.8 G/DL CALC GLOBULIN (test code = 2240) 1.8 G/DL CALC A/G RATIO (test code = 2234) 2.7 RATIO BILIRUBIN, TOTAL (test code = 2207) 0.6 MG/DL ALKALINE PHOSPHATASE (test code = 2204) 47 U/L AST (test code = 2218) 19 U/L ALT (test code = 2219) 17 U/L CBC W/AUTO [id number] 00:00:00* Test Item Value Reference Range Interpretation Comme nts WBC (test code = 1001) 6.7 K/UL [...] = 1013) 1.0 % IMMATURE GRANULOCYTES (test code = 1036) 0.4 % NUCLEATED RBCS (test code = 1065) 0.0 /100WBC'S PLATELET COUNT (test code = 1015) 284 K/UL ABSOLUTE NEUTROPHILS (test c ode = 1066) 3.41 K/UL ABSOLUTE LYMPHOCYTES (test c ode = 1067) 1.91 K/UL ABSOLUTE MONOCYTES (test cod e = 1068) 0.47 K/UL ABSOLUTE EOSINOPHILS (test c ode = 1040) 0.78 K/UL ABSOLUTE BASOPHILS (test cod e = 1069) 0.07 K/UL ABS IMMATURE GRANULOCYTES (t est code = 1020) 0.03 K/UL ABS NUCLEATED RBCS (test cod e = 52639) 0.00 K/UL [id number] 00:00:00* Test Item Value Reference Range Interpretation Comme [facility] TSH, THIRD GENERATION (test code = 2821) 3.200 UIU/ML VITAMIN D, 25 [id number] 00:00:00* Test Item Value Reference Range Interpretation Comme [facility] VITAMIN D, 25 OH (test code = 4958) 28 NG/ML COMPREHENSIVE METABOLIC [id number] 00:00:00* Test Item Value Reference Range Interpretation Comme nts GLUCOSE (test code = 2217) 93 MG/DL BUN (test code = 2208) 22 MG/DL CREATININE (test code = 2214) 1.00 MG/DL eGFR AMER. (test cod e = 49850) 80 ML/MIN/1.73 eGFR NON- AMER. (test code = 36047) 69 ML/MIN/1.73 CALC BUN/CREAT (test code = 2235) 22 RATIO SODIUM (test code = 2231) 140 MEQ/L POTASSIUM (test code = 2228) 4.9 MEQ/L CHLORIDE (test code = 2215) 102 MEQ/L CARBON DIOXIDE (test code = 2206) 26 MEQ/L CALCIUM (test code = 2209) 9.7 MG/DL PROTEIN, TOTAL (test code = 2229) 6.7 G/DL ALBUMIN (test code = 2201) 4.6 G/DL CALC GLOBULIN (test code = 2240) 2.1 G/DL CALC A/G RATIO (test code = 2234) 2.2 RATIO BILIRUBIN, TOTAL (test code = 2207) 0.3 MG/DL ALKALINE PHOSPHATASE (test code = 2204) 46 U/L AST (test code = 2218) 19 U/L ALT (test code = 2219) 28 U/L [id number] 00:00:00* Test Item Value Reference Range Interpretation Comme nts TSH, THIRD GENERATION (test code = 2821) 3.200 UIU/ML VITAMIN D, 25 [id number] 00:00:00* Test Item Value Reference Range Interpretation Comme nts VITAMIN D, 25 OH (test code = 4958) 28 NG/ML COMPREHENSIVE METABOLIC [id number] 00:00:00* Test Item Value Reference Range Interpretation Comme nts GLUCOSE (test code = 2217) 93 MG/DL BUN (test code = 2208) 22 MG/DL CREATININE (test code = 2214) 1.00 MG/DL eGFR AMER. (test cod e = 01217) 80 ML/MIN/1.73 eGFR NON- AMER. (test code = 87895) 69 ML/MIN/1.73 CALC BUN/CREAT (test code = 2235) 22 RATIO SODIUM (test code = 2231) 140 MEQ/L POTASSIUM (test code = 2228) 4.9 MEQ/L CHLORIDE (test code = 2215) 102 MEQ/L CARBON DIOXIDE (test code = 2206) 26 MEQ/L CALCIUM (test code = 2209) 9.7 MG/DL PROTEIN, TOTAL (test code = 2229) 6.7 G/DL ALBUMIN (test code = 2201) 4.6 G/DL CALC GLOBULIN (test code = 2240) 2.1 G/DL CALC A/G RATIO (test code = 2234) 2.2 RATIO BILIRUBIN, TOTAL (test code = 2207) 0.3 MG/DL ALKALINE PHOSPHATASE (test code = 2204) 46 U/L AST (test code = 2218) 19 U/L ALT (test code = 2219) 28 U/L [id number] 00:00:00* Test Item Value Reference Range Interpretation Comme nts TSH, THIRD GENERATION (test code = 2821) 3.200 UIU/ML VITAMIN D, 25 [id number] 00:00:00* Test Item Value Reference Range Interpretation Comme nts VITAMIN D, 25 OH (test code = 4958) 28 NG/ML COMPREHENSIVE METABOLIC [id number] 00:00:00* Test Item Value Reference Range Interpretation Comme nts GLUCOSE (test code = 2217) 93 MG/DL BUN (test code = 2208) 22 MG/DL CREATININE (test code = 2214) 1.00 MG/DL eGFR AMER. (test cod e = 91631) 80 ML/MIN/1.73 eGFR NON- AMER. (test code = 17203) 69 ML/MIN/1.73 CALC BUN/CREAT (test code = 2235) 22 RATIO SODIUM (test code = 2231) 140 MEQ/L POTASSIUM (test code = 2228) 4.9 MEQ/L CHLORIDE (test code = 2215) 102 MEQ/L CARBON DIOXIDE (test code = 2206) 26 MEQ/L CALCIUM (test code = 2209) 9.7 MG/DL PROTEIN, TOTAL (test code = 2229) 6.7 G/DL ALBUMIN (test code = 2201) 4.6 G/DL CALC GLOBULIN (test code = 2240) 2.1 G/DL CALC A/G RATIO (test code = 2234) 2.2 RATIO BILIRUBIN, TOTAL (test code = 2207) 0.3 MG/DL ALKALINE PHOSPHATASE (test code = 2204) 46 U/L AST (test code = 2218) 19 U/L ALT (test code = 2219) 28 U/L URINE CULTURE, NO [id number] 00:00:00* Test Item Value Reference Range Interpretation Comme nts URINE CULTURE, NO SENS (test code = 72797) SPECIMEN NUMBER: [id number] URINE CULTURE, NO [id number] 00:00:00* Test Item Value Reference Range Interpretation Comme nts URINE CULTURE, NO SENS (test code = 64658) SPECIMEN NUMBER: [id number] URINE CULTURE, NO [id number] 00:00:00* Test Item Value Reference Range Interpretation Comme nts URINE CULTURE, NO SENS (test code = 10334) SPECIMEN NUMBER: [id number] VITAMIN D, 25 [id number] 00:00:00* Test Item Value Reference Range Interpretation Comme nts VITAMIN D, 25 OH (test code = 4958) 30 NG/ML LIPID [id number] 00:00:00* Test Item Value Reference Range Interpretation Comme nts CHOLESTEROL (test code = 2210) 147 MG/DL TRIGLYCERIDES (test code = 2232) 79 MG/DL HDL CHOLESTEROL (test code = 2220) 49 MG/DL CALC LDL CHOL (test code = 2237) 82 MG/DL RISK RATIO LDL/HDL (test cod e = 2238) 1.67 RATIO COMPREHENSIVE METABOLIC [id number] 00:00:00* Test Item Value Reference Range Interpretation Comme nts GLUCOSE (test code = 2217) 88 MG/DL BUN (test code = 2208) 18 MG/DL CREATININE (test code = 2214) 1.04 MG/DL eGFR AMER. (test cod e = 94243) 77 ML/MIN/1.73 eGFR NON- AMER. (test code = 92226) 67 ML/MIN/1.73 CALC BUN/CREAT (test code = 2235) 17 RATIO SODIUM (test code = 2231) 138 MEQ/L POTASSIUM (test code = 2228) 4.4 MEQ/L CHLORIDE (test code = 2215) 103 MEQ/L CARBON DIOXIDE (test code = 2206) 24 MEQ/L CALCIUM (test code = 2209) 9.3 MG/DL PROTEIN, TOTAL (test code = 2229) 6.3 G/DL ALBUMIN (test code = 2201) 4.5 G/DL CALC GLOBULIN (test code = 2240) 1.8 G/DL CALC A/G RATIO (test code = 2234) 2.5 RATIO BILIRUBIN, TOTAL (test code = 2207) 0.2 MG/DL ALKALINE PHOSPHATASE (test code = 2204) 39 U/L AST (test code = 2218) 17 U/L ALT (test code = 221) 16 U/L VITAMIN D, 25 [id number] 00:00:00* Test Item Value Reference Range Interpretation Comme nts VITAMIN D, 25 OH (test code = 4958) 30 NG/ML LIPID [id number] 00:00:00* Test Item Value Reference Range Interpretation Comme nts CHOLESTEROL (test code = 2210) 147 MG/DL TRIGLYCERIDES (test code = 2232) 79 MG/DL HDL CHOLESTEROL (test code = 2220) 49 MG/DL CALC LDL CHOL (test code = 2237) 82 MG/DL RISK RATIO LDL/HDL (test cod e = 223) 1.67 RATIO COMPREHENSIVE METABOLIC [id number] 00:00:00* Test Item Value Reference Range Interpretation Comme nts GLUCOSE (test code = 2217) 88 MG/DL BUN (test code = 2208) 18 MG/DL CREATININE (test code = 2214) 1.04 MG/DL eGFR AMER. (test cod e = 41432) 77 ML/MIN/1.73 eGFR NON- AMER. (test code = 41354) 67 ML/MIN/1.73 CALC BUN/CREAT (test code = 2235) 17 RATIO SODIUM (test code = 2231) 138 MEQ/L POTASSIUM (test code = 2228) 4.4 MEQ/L CHLORIDE (test code = 2215) 103 MEQ/L CARBON DIOXIDE (test code = 2206) 24 MEQ/L CALCIUM (test code = 2209) 9.3 MG/DL PROTEIN, TOTAL (test code = 2229) 6.3 G/DL ALBUMIN (test code = 2201) 4.5 G/DL CALC GLOBULIN (test code = 2240) 1.8 G/DL CALC A/G RATIO (test code = 2234) 2.5 RATIO BILIRUBIN, TOTAL (test code = 2207) 0.2 MG/DL ALKALINE PHOSPHATASE (test code = 2204) 39 U/L AST (test code = 2218) 17 U/L ALT (test code = 2219) 16 U/L VITAMIN D, 25 [id number] 00:00:00* Test Item Value Reference Range Interpretation Comme nts VITAMIN D, 25 OH (test code = 4958) 30 NG/ML LIPID [id number] 00:00:00* Test Item Value Reference Range Interpretation Comme nts CHOLESTEROL (test code = 2210) 147 MG/DL TRIGLYCERIDES (test code = 2232) 79 MG/DL HDL CHOLESTEROL (test code = 2220) 49 MG/DL CALC LDL CHOL (test code = 2237) 82 MG/DL RISK RATIO LDL/HDL (test cod e = 2238) 1.67 RATIO COMPREHENSIVE METABOLIC [id number] 00:00:00* Test Item Value Reference Range Interpretation Comme nts GLUCOSE (test code = 2217) 88 MG/DL BUN (test code = 2208) 18 MG/DL CREATININE (test code = 2214) 1.04 MG/DL eGFR AMER. (test cod e = 12596) 77 ML/MIN/1.73 eGFR NON- AMER. (test code = 25235) 67 ML/MIN/1.73 CALC BUN/CREAT (test code = 2235) 17 RATIO SODIUM (test code = 2231) 138 MEQ/L POTASSIUM (test code = 2228) 4.4 MEQ/L CHLORIDE (test code = 2215) 103 MEQ/L CARBON DIOXIDE (test code = 2206) 24 MEQ/L CALCIUM (test code = 2209) 9.3 MG/DL PROTEIN, TOTAL (test code = 2229) 6.3 G/DL ALBUMIN (test code = 2201) 4.5 G/DL CALC GLOBULIN (test code = 2240) 1.8 G/DL CALC A/G RATIO (test code = 2234) 2.5 RATIO BILIRUBIN, TOTAL (test code = 2207) 0.2 MG/DL ALKALINE PHOSPHATASE (test code = 2204) 39 U/L AST (test code = 2218) 17 U/L ALT (test code = 2219) 16 U/L CBC W/AUTO DIFF WITH PLATELETS [ADDED]2020-06-09 00:00:00* Test Item Value Reference Range Interpretation Comme nts WBC (test code = 1001) 5.8 K/UL [...] K/UL CBC W/AUTO DIFF WITH PLATELETS [ADDED]2020-06-09 00:00:00* Test Item Value Reference Range Interpretation Comme nts WBC (test code = 1001) 5.8 K/UL [...] K/UL CBC W/AUTO DIFF WITH PLATELETS [ADDED]2020-06-09 00:00:00* Test Item Value Reference Range Interpretation Comme nts WBC (test code = 1001) 5.8 K/UL [...] K/UL SARS-CoV-2 (COVID-19) by RT-PCR (HIGH RISK)2020-03-06 00:00:00* Test Item Value Reference Range Interpretation Comme nts SARS-CoV-2 INTERPRETATION (test code = 58193) NEGATIVE SOURCE (test code = 95256) NASOPHARYNGEAL SARS-CoV-2 (COVID-19) by RT-PCR (HIGH RISK)2020-03-06 00:00:00* Test Item Value Reference Range Interpretation Comme nts SARS-CoV-2 INTERPRETATION (test code = 20815) NEGATIVE SOURCE (test code = 43804) NASOPHARYNGEAL SARS-CoV-2 (COVID-19) by RT-PCR (HIGH RISK)2020-03-06 00:00:00* Test Item Value Reference Range Interpretation Comme nts SARS-CoV-2 INTERPRETATION (test code = 38136) NEGATIVE SOURCE (test code = 22501) NASOPHARYNGEAL VITAMIN D, 25 [id number] 00:00:00* Test Item Value Reference Range Interpretation Comme nts VITAMIN D, 25 OH (test code = 4958) 23 NG/ML VITAMIN D, 25 [id number] 00:00:00* Test Item Value Reference Range Interpretation Comme nts VITAMIN D, 25 OH (test code = 4958) 23 NG/ML VITAMIN D, 25 [id number] 00:00:00* Test Item Value Reference Range Interpretation Comme nts VITAMIN D, 25 OH (test code = 4958) 23 NG/ML COMPREHENSIVE METABOLIC [id number] 00:00:00* Test Item Value Reference Range Interpretation Comme nts GLUCOSE (test code = 2217) 97 MG/DL BUN (test code = 2208) 24 MG/DL CREATININE (test code = 2214) 1.05 MG/DL eGFR AMER. (test cod e = 43095) 77 ML/MIN/1.73 eGFR NON- AMER. (test code = 35461) 66 ML/MIN/1.73 CALC BUN/CREAT (test code = 2235) 23 RATIO SODIUM (test code = 2231) 142 MEQ/L POTASSIUM (test code = 2228) 4.8 MEQ/L CHLORIDE (test code = 2215) 104 MEQ/L CARBON DIOXIDE (test code = 2206) 24 MEQ/L CALCIUM (test code = 2209) 9.8 MG/DL PROTEIN, TOTAL (test code = 2229) 7.2 G/DL ALBUMIN (test code = 2201) 4.7 G/DL CALC GLOBULIN (test code = 2240) 2.5 G/DL CALC A/G RATIO (test code = 2234) 1.9 RATIO BILIRUBIN, TOTAL (test code = 2207) <0.2 MG/DL ALKALINE PHOSPHATASE (test code = 2204) 50 U/L AST (test code = 2218) 15 U/L ALT (test code = 2219) 24 U/L PERNELL (ANTI-NUCLEAR AB) WITH REFLEX [id number] 00:00:00* Test Item Value Reference Range Interpretation Comme nts ANTI-NUCLEAR ANTIBODIES (vance t code = 3506) NEGATIVE CHLAMYDIA, AMPLIFIED, [id number] 00:00:00* Test Item Value Reference Range Interpretation Comme nts CHLAMYDIA, TMA (test code = 89078) NEGATIVE GC, AMPLIFIED, [id number] 00:00:00* Test Item Value Reference Range Interpretation Comme nts GONORRHEA, TMA (test code = 44683) NEGATIVE HIV AB/AG COMBO RFLX [id number] 00:00:00* Test Item Value Reference Range Interpretation Comme nts HIV 1/2 4TH GEN, RFLX CONF ( test code = 3514) NON-REACTIVE [id number] 00:00:00* Test Item Value Reference Range Interpretation Comme nts RPR RESULT (test code = 3501) NON-REACTIVE RPR TITER (test code = 3500) NOT INDIC. TITER VITAMIN D, 25 [id number] 00:00:00* Test Item Value Reference Range Interpretation Comme nts VITAMIN D, 25 OH (test code = 4958) 20 NG/ML RHEUMATOID FACTOR, [id number] 00:00:00* Test Item Value Reference Range Interpretation Comme nts RHEUMATOID FACTOR, QUANT (te st code = 3502) <10 IU/ML SEDIMENTATION [id number] 00:00:00* Test Item Value Reference Range Interpretation Comme nts SEDIMENTATION RATE (test cod e = 1017) 5 MM/HOUR CBC W/AUTO [id number] 00:00:00* Test Item Value Reference Range Interpretation Comme nts WBC (test code = 1001) 7.2 K/UL [...] code = 1015) 241 K/UL COMPREHENSIVE METABOLIC [id number] 00:00:00* Test Item Value Reference Range Interpretation Comme nts GLUCOSE (test code = 2217) 97 MG/DL BUN (test code = 2208) 24 MG/DL CREATININE (test code = 2214) 1.05 MG/DL eGFR AMER. (test cod e = 46071) 77 ML/MIN/1.73 eGFR NON- AMER. (test code = 73970) 66 ML/MIN/1.73 CALC BUN/CREAT (test code = 2235) 23 RATIO SODIUM (test code = 2231) 142 MEQ/L POTASSIUM (test code = 2228) 4.8 MEQ/L CHLORIDE (test code = 2215) 104 MEQ/L CARBON DIOXIDE (test code = 2206) 24 MEQ/L CALCIUM (test code = 2209) 9.8 MG/DL PROTEIN, TOTAL (test code = 2229) 7.2 G/DL ALBUMIN (test code = 2201) 4.7 G/DL CALC GLOBULIN (test code = 2240) 2.5 G/DL CALC A/G RATIO (test code = 2234) 1.9 RATIO BILIRUBIN, TOTAL (test code = 2207) <0.2 MG/DL ALKALINE PHOSPHATASE (test code = 2204) 50 U/L AST (test code = 2218) 15 U/L ALT (test code = 2219) 24 U/L PERNELL (ANTI-NUCLEAR AB) WITH REFLEX [id number] 00:00:00* Test Item Value Reference Range Interpretation Comme nts ANTI-NUCLEAR ANTIBODIES (vance t code = 3506) NEGATIVE CHLAMYDIA, AMPLIFIED, [id number] 00:00:00* Test Item Value Reference Range Interpretation Comme nts CHLAMYDIA, TMA (test code = 69534) NEGATIVE GC, AMPLIFIED, [id number] 00:00:00* Test Item Value Reference Range Interpretation Comme nts GONORRHEA, TMA (test code = 98406) NEGATIVE HIV AB/AG COMBO RFLX [id number] 00:00:00* Test Item Value Reference Range Interpretation Comme nts HIV 1/2 4TH GEN, RFLX CONF ( test code = 3514) NON-REACTIVE [id number] 00:00:00* Test Item Value Reference Range Interpretation Comme nts RPR RESULT (test code = 3501) NON-REACTIVE RPR TITER (test code = 3500) NOT INDIC. TITER VITAMIN D, 25 [id number] 00:00:00* Test Item Value Reference Range Interpretation Comme nts VITAMIN D, 25 OH (test code = 4958) 20 NG/ML RHEUMATOID FACTOR, [id number] 00:00:00* Test Item Value Reference Range Interpretation Comme nts RHEUMATOID FACTOR, QUANT (te st code = 3502) <10 IU/ML SEDIMENTATION [id number] 00:00:00* Test Item Value Reference Range Interpretation Comme nts SEDIMENTATION RATE (test cod e = 1017) 5 MM/HOUR CBC W/AUTO [id number] 00:00:00* Test Item Value Reference Range Interpretation Comme nts WBC (test code = 1001) 7.2 K/UL [...] code = 1015) 241 K/UL COMPREHENSIVE METABOLIC [id number] 00:00:00* Test Item Value Reference Range Interpretation Comme nts GLUCOSE (test code = 2217) 97 MG/DL BUN (test code = 2208) 24 MG/DL CREATININE (test code = 2214) 1.05 MG/DL eGFR AMER. (test cod e = 40258) 77 ML/MIN/1.73 eGFR NON- AMER. (test code = 85461) 66 ML/MIN/1.73 CALC BUN/CREAT (test code = 2235) 23 RATIO SODIUM (test code = 2231) 142 MEQ/L POTASSIUM (test code = 2228) 4.8 MEQ/L CHLORIDE (test code = 2215) 104 MEQ/L CARBON DIOXIDE (test code = 2206) 24 MEQ/L CALCIUM (test code = 2209) 9.8 MG/DL PROTEIN, TOTAL (test code = 2229) 7.2 G/DL ALBUMIN (test code = 2201) 4.7 G/DL CALC GLOBULIN (test code = 2240) 2.5 G/DL CALC A/G RATIO (test code = 2234) 1.9 RATIO BILIRUBIN, TOTAL (test code = 2207) <0.2 MG/DL ALKALINE PHOSPHATASE (test code = 2204) 50 U/L AST (test code = 2218) 15 U/L ALT (test code = 2219) 24 U/L PERNELL (ANTI-NUCLEAR AB) WITH REFLEX [id number] 00:00:00* Test Item Value Reference Range Interpretation Comme nts ANTI-NUCLEAR ANTIBODIES (vance t code = 3506) NEGATIVE CHLAMYDIA, AMPLIFIED, [id number] 00:00:00* Test Item Value Reference Range Interpretation Comme nts CHLAMYDIA, TMA (test code = 82418) NEGATIVE GC, AMPLIFIED, [id number] 00:00:00* Test Item Value Reference Range Interpretation Comme nts GONORRHEA, TMA (test code = 89361) NEGATIVE HIV AB/AG COMBO RFLX [id number] 00:00:00* Test Item Value Reference Range Interpretation Comme nts HIV 1/2 4TH GEN, RFLX CONF ( test code = 3514) NON-REACTIVE [id number] 00:00:00* Test Item Value Reference Range Interpretation Comme nts RPR RESULT (test code = 3501) NON-REACTIVE RPR TITER (test code = 3500) NOT INDIC. TITER VITAMIN D, 25 [id number] 00:00:00* Test Item Value Reference Range Interpretation Comme nts VITAMIN D, 25 OH (test code = 4958) 20 NG/ML RHEUMATOID FACTOR, [id number] 00:00:00* Test Item Value Reference Range Interpretation Comme nts RHEUMATOID FACTOR, QUANT (te st code = 3502) <10 IU/ML SEDIMENTATION [id number] 00:00:00* Test Item Value Reference Range Interpretation Comme nts SEDIMENTATION RATE (test cod e = 1017) 5 MM/HOUR CBC W/AUTO [id number] 00:00:00* Test Item Value Reference Range Interpretation Comme nts WBC (test code = 1001) 7.2 K/UL [...] (test code = 1015) 241 K/UL LIPID [id number] 00:00:00* Test Item Value Reference Range Interpretation Comme nts CHOLESTEROL (test code = 2210) 133 MG/DL TRIGLYCERIDES (test code = 2232) 144 MG/DL HDL CHOLESTEROL (test code = 2220) 42 MG/DL CALC LDL CHOL (test code = 2237) 62 MG/DL RISK RATIO LDL/HDL (test cod e = 2238) 1.48 RATIO COMPREHENSIVE METABOLIC [id number] 00:00:00* Test Item Value Reference Range Interpretation Comme nts GLUCOSE (test code = 2217) 83 MG/DL BUN (test code = 2208) 21 MG/DL CREATININE (test code = 2214) 1.00 MG/DL eGFR AMER. (test cod e = 67029) 82 ML/MIN/1.73 eGFR NON- AMER. (test code = 45044) 70 ML/MIN/1.73 CALC BUN/CREAT (test code = 2235) 21 RATIO SODIUM (test code = 2231) 139 MEQ/L POTASSIUM (test code = 2228) 4.8 MEQ/L CHLORIDE (test code = 2215) 102 MEQ/L CARBON DIOXIDE (test code = 2206) 24 MEQ/L CALCIUM (test code = 2209) 9.4 MG/DL PROTEIN, TOTAL (test code = 2229) 6.9 G/DL ALBUMIN (test code = 2201) 4.8 G/DL CALC GLOBULIN (test code = 2240) 2.1 G/DL CALC A/G RATIO (test code = 2234) 2.3 RATIO BILIRUBIN, TOTAL (test code = 2207) 0.3 MG/DL ALKALINE PHOSPHATASE (test code = 2204) 51 U/L AST (test code = 2218) 14 U/L ALT (test code = 2219) 16 U/L [id number] 00:00:00* Test Item Value Reference Range Interpretation Comme nts TSH, THIRD GENERATION (test code = 2821) 1.320 UIU/ML CBC W/AUTO [id number] 00:00:00* Test Item Value Reference Range Interpretation Comme nts WBC (test code = 1001) 7.9 K/UL [...] (test code = 1015) 277 K/UL LIPID [id number] 00:00:00* Test Item Value Reference Range Interpretation Comme nts CHOLESTEROL (test code = 2210) 133 MG/DL TRIGLYCERIDES (test code = 2232) 144 MG/DL HDL CHOLESTEROL (test code = 2220) 42 MG/DL CALC LDL CHOL (test code = 2237) 62 MG/DL RISK RATIO LDL/HDL (test cod e = 2238) 1.48 RATIO COMPREHENSIVE METABOLIC [id number] 00:00:00* Test Item Value Reference Range Interpretation Comme nts GLUCOSE (test code = 2217) 83 MG/DL BUN (test code = 2208) 21 MG/DL CREATININE (test code = 2214) 1.00 MG/DL eGFR AMER. (test cod e = 81141) 82 ML/MIN/1.73 eGFR NON- AMER. (test code = 32179) 70 ML/MIN/1.73 CALC BUN/CREAT (test code = 2235) 21 RATIO SODIUM (test code = 2231) 139 MEQ/L POTASSIUM (test code = 2228) 4.8 MEQ/L CHLORIDE (test code = 2215) 102 MEQ/L CARBON DIOXIDE (test code = 2206) 24 MEQ/L CALCIUM (test code = 2209) 9.4 MG/DL PROTEIN, TOTAL (test code = 2229) 6.9 G/DL ALBUMIN (test code = 2201) 4.8 G/DL CALC GLOBULIN (test code = 2240) 2.1 G/DL CALC A/G RATIO (test code = 2234) 2.3 RATIO BILIRUBIN, TOTAL (test code = 2207) 0.3 MG/DL ALKALINE PHOSPHATASE (test code = 2204) 51 U/L AST (test code = 2218) 14 U/L ALT (test code = 2219) 16 U/L [id number] 00:00:00* Test Item Value Reference Range Interpretation Comme nts TSH, THIRD GENERATION (test code = 2821) 1.320 UIU/ML CBC W/AUTO [id number] 00:00:00* Test Item Value Reference Range Interpretation Comme nts WBC (test code = 1001) 7.9 K/UL [...] (test code = 1015) 277 K/UL LIPID [id number] 00:00:00* Test Item Value Reference Range Interpretation Comme nts CHOLESTEROL (test code = 2210) 133 MG/DL TRIGLYCERIDES (test code = 2232) 144 MG/DL HDL CHOLESTEROL (test code = 2220) 42 MG/DL CALC LDL CHOL (test code = 2237) 62 MG/DL RISK RATIO LDL/HDL (test cod e = 2238) 1.48 RATIO COMPREHENSIVE METABOLIC [id number] 00:00:00* Test Item Value Reference Range Interpretation Comme nts GLUCOSE (test code = 2217) 83 MG/DL BUN (test code = 2208) 21 MG/DL CREATININE (test code = 2214) 1.00 MG/DL eGFR AMER. (test cod e = 90508) 82 ML/MIN/1.73 eGFR NON- AMER. (test code = 18422) 70 ML/MIN/1.73 CALC BUN/CREAT (test code = 2235) 21 RATIO SODIUM (test code = 2231) 139 MEQ/L POTASSIUM (test code = 2228) 4.8 MEQ/L CHLORIDE (test code = 2215) 102 MEQ/L CARBON DIOXIDE (test code = 2206) 24 MEQ/L CALCIUM (test code = 2209) 9.4 MG/DL PROTEIN, TOTAL (test code = 2229) 6.9 G/DL ALBUMIN (test code = 2201) 4.8 G/DL CALC GLOBULIN (test code = 2240) 2.1 G/DL CALC A/G RATIO (test code = 2234) 2.3 RATIO BILIRUBIN, TOTAL (test code = 2207) 0.3 MG/DL ALKALINE PHOSPHATASE (test code = 2204) 51 U/L AST (test code = 2218) 14 U/L ALT (test code = 2219) 16 U/L [id number] 00:00:00* Test Item Value Reference Range Interpretation Comme nts TSH, THIRD GENERATION (test code = 2821) 1.320 UIU/ML CBC W/AUTO [id number] 00:00:00* Test Item Value Reference Range Interpretation Comme nts WBC (test code = 1001) 7.9 K/UL [...] code = 1015) 277 K/UL CBC W/AUTO [id number] 00:00:00* Test Item Value Reference Range Interpretation Comme nts WBC (test code = 1001) 8.6 K/UL [...] code = 1015) 286 K/UL COMPREHENSIVE METABOLIC [id number] 00:00:00* Test Item Value Reference Range Interpretation Comme nts GLUCOSE (test code = 2217) 91 MG/DL BUN (test code = 2208) 20 MG/DL CREATININE (test code = 2214) 0.87 MG/DL eGFR AMER. (test cod e = 33489) 97 ML/MIN/1.73 eGFR NON- AMER. (test code = 02057) 84 ML/MIN/1.73 CALC BUN/CREAT (test code = 2235) 23 RATIO SODIUM (test code = 2231) 141 MEQ/L POTASSIUM (test code = 2228) 4.5 MEQ/L CHLORIDE (test code = 2215) 102 MEQ/L CARBON DIOXIDE (test code = 2206) 27 MEQ/L CALCIUM (test code = 2209) 9.5 MG/DL PROTEIN, TOTAL (test code = 2229) 7.1 G/DL ALBUMIN (test code = 2201) 4.7 G/DL CALC GLOBULIN (test code = 2240) 2.4 G/DL CALC A/G RATIO (test code = 2234) 2.0 RATIO BILIRUBIN, TOTAL (test code = 2207) 0.2 MG/DL ALKALINE PHOSPHATASE (test code = 2204) 55 U/L AST (test code = 2218) 14 U/L ALT (test code = 2219) 23 U/L LIPID [id number] 00:00:00* Test Item Value Reference Range Interpretation Comme nts CHOLESTEROL (test code = 2210) 160 MG/DL TRIGLYCERIDES (test code = 2232) 159 MG/DL HDL CHOLESTEROL (test code = 2220) 51 MG/DL CALC LDL CHOL (test code = 2237) 77 MG/DL RISK RATIO LDL/HDL (test cod e = 2238) 1.51 RATIO CBC W/AUTO [id number] 00:00:00* Test Item Value Reference Range Interpretation Comme nts WBC (test code = 1001) 8.6 K/UL [...] code = 1015) 286 K/UL COMPREHENSIVE METABOLIC [id number] 00:00:00* Test Item Value Reference Range Interpretation Comme nts GLUCOSE (test code = 2217) 91 MG/DL BUN (test code = 2208) 20 MG/DL CREATININE (test code = 2214) 0.87 MG/DL eGFR AMER. (test cod e = 97652) 97 ML/MIN/1.73 eGFR NON- AMER. (test code = 48271) 84 ML/MIN/1.73 CALC BUN/CREAT (test code = 2235) 23 RATIO SODIUM (test code = 2231) 141 MEQ/L POTASSIUM (test code = 2228) 4.5 MEQ/L CHLORIDE (test code = 2215) 102 MEQ/L CARBON DIOXIDE (test code = 2206) 27 MEQ/L CALCIUM (test code = 2209) 9.5 MG/DL PROTEIN, TOTAL (test code = 2229) 7.1 G/DL ALBUMIN (test code = 2201) 4.7 G/DL CALC GLOBULIN (test code = 2240) 2.4 G/DL CALC A/G RATIO (test code = 2234) 2.0 RATIO BILIRUBIN, TOTAL (test code = 2207) 0.2 MG/DL ALKALINE PHOSPHATASE (test code = 2204) 55 U/L AST (test code = 2218) 14 U/L ALT (test code = 2219) 23 U/L LIPID [id number] 00:00:00* Test Item Value Reference Range Interpretation Comme nts CHOLESTEROL (test code = 2210) 160 MG/DL TRIGLYCERIDES (test code = 2232) 159 MG/DL HDL CHOLESTEROL (test code = 2220) 51 MG/DL CALC LDL CHOL (test code = 2237) 77 MG/DL RISK RATIO LDL/HDL (test cod e = 2238) 1.51 RATIO CBC W/AUTO [id number] 00:00:00* Test Item Value Reference Range Interpretation Comme nts WBC (test code = 1001) 8.6 K/UL [...] code = 1015) 286 K/UL COMPREHENSIVE METABOLIC [id number] 00:00:00* Test Item Value Reference Range Interpretation Comme nts GLUCOSE (test code = 2217) 91 MG/DL BUN (test code = 2208) 20 MG/DL CREATININE (test code = 2214) 0.87 MG/DL eGFR AMER. (test cod e = 19866) 97 ML/MIN/1.73 eGFR NON- AMER. (test code = 20352) 84 ML/MIN/1.73 CALC BUN/CREAT (test code = 2235) 23 RATIO SODIUM (test code = 2231) 141 MEQ/L POTASSIUM (test code = 2228) 4.5 MEQ/L CHLORIDE (test code = 2215) 102 MEQ/L CARBON DIOXIDE (test code = 2206) 27 MEQ/L CALCIUM (test code = 2209) 9.5 MG/DL PROTEIN, TOTAL (test code = 2229) 7.1 G/DL ALBUMIN (test code = 2201) 4.7 G/DL CALC GLOBULIN (test code = 2240) 2.4 G/DL CALC A/G RATIO (test code = 2234) 2.0 RATIO BILIRUBIN, TOTAL (test code = 2207) 0.2 MG/DL ALKALINE PHOSPHATASE (test code = 2204) 55 U/L AST (test code = 2218) 14 U/L ALT (test code = 2219) 23 U/L LIPID [id number] 00:00:00* Test Item Value Reference Range Interpretation Comme nts CHOLESTEROL (test code = 2210) 160 MG/DL TRIGLYCERIDES (test code = 2232) 159 MG/DL HDL CHOLESTEROL (test code = 2220) 51 MG/DL CALC LDL CHOL (test code = 2237) 77 MG/DL RISK RATIO LDL/HDL (test cod e = 2238) 1.51 RATIO
[2024-05-30 20:35] LABS: Specific Gravity 1.012 (1.005-1.030); Urine Bilirubin NEGATIVE (Negative); Urine Blood Negative (Negative); Urine Clarity Clear (Clear); Urine Color Colorless (Yellow); Urine Glucose NEGATIVE (Negative); Urine Ketones NEGATIVE (Negative); Urine Microscopic Reflex YN NO UMIC; Urine Nitrite NEGATIVE (Negative); Urine Protein NEGATIVE (Negative); Urine Urobilinogen Normal (Normal); Urine pH 5.5 (5.0-7.0)
[2024-05-30 20:38] LABS: Specific Gravity 1.012 (1.005-1.030)
[2024-05-30 20:47] LABS: SARS-CoV-2 Antigen CONTROL BLUE LINE VIS/BG OK; SARS-CoV-2 Antigen Rapid Res Negative (Negative)
--- NOTE | 2024-05-30 22:14 | RAD REPORT ---
EXAMINATION: ONE VIEW CHEST XR CLINICAL INDICATION: Female, 43 years old.,COUGH TECHNIQUE: Frontal chest projection is submitted. Examination is limited by patient positioning and t echnique. COMPARISON: 07/26/2021 FINDINGS: The lungs are well inflated and clear. No pneumothorax or sizable effusion. The heart is normal in s ize. IMPRESSION: No acute intrathoracic abnormalities.
--- NOTE | 2024-05-30 22:30 | EDPHYS ---
Physician Documentation [facility] Name: Roula Conde Age: 43 yrs Sex: Female : 1980 Arrival Date: 05/30/2024 Time: 19:50 Bed 11 Private MD: ED Physician Yanick Feliz HPI: 05/30 22:44 This 43 yrs old Female presents to ER via Ambulatory with complaints of Cough, kb Congestion, Chest Wall Pain, Sore Throat. 22:44 Pt is a 43 year old female who presents for fever, malaise, bodyaches, sore throat, ear kb pain, cough and congestion that started 8 days ago. states she has been to twice and was given steroids, antibiotics and albuterol inhaler. States she is still taking the antibiotics, but isn't feeling better. . Historical: - Allergies: 20:06 Iodinated Contrast Media - IV Dye (Hives, swelling); kd3 - Immunization history:: Adult Immunizations up to date. - Infectious Disease History:: Denies. - Social history:: Smoking status: Patient/guardian denies using tobacco. ROS: 22:43 Constitutional: As per HPI kb Exam: 22:43 Head/Face: Normocephalic, atraumatic. ENT: Moist Mucous membranes Cardiovascular: kb Regular rate Respiratory: Respirations even and unlabored. No increased work of breathing. Talking in full sentences Skin: Warm, dry with normal turgor. Normal color. MS/ Extremity: Pulses equal, no cyanosis. Neurovascular intact. Full, normal range of motion. Neuro: Awake and alert, GCS 15, oriented to person, place, time, and situation. 22:43 Constitutional: The patient appears alert, awake, uncomfortable, Vital Signs: 20:02 Pulse 89; Resp 16; Temp 98.7(O); Pulse Ox 99% ; Weight 79.38 kg; Height 5 ft. 7 in. ; kd3 Pain 8/10; 20:07 BP 137 / 97; kd3 21:52 BP 151 / 90; Pulse 93; Resp 16; Temp 99.5(O); Pulse Ox 100% ; kd3 22:47 BP 132 / 84; Pulse 80; Resp 17; Pulse Ox 100% ; vc1 20:02 Body Mass Index 27.41 (79.38 kg, 170.18 cm) kd3 20:02 Pain Scale: Adult kd3 MDM: 19:55 Medical Screening Exam initiated kb 22:44 Differential Diagnosis: Bronchitis Influenza Upper Respiratory Infection Viral kb Syndrome. Data reviewed: vital signs, nurses notes. Counseling: I had a detailed discussion with the patient and/or guardian regarding the historical points, exam findings, and any diagnostic results supporting the discharge/admit diagnosis, lab results, radiology results, the need for outpatient follow up, a family practitioner, to return to the emergency department if symptoms worsen or persist or if there are any questions or concerns that arise at home. 05/30 20:04 Order name: Flu; Complete Time: 20:47 kb 05/30 20:04 Order name: Strep; Complete Time: 20:37 kb 05/30 20:04 Order name: SARS-COV-2 Antigen Rapid; Complete Time: 20:47 kb 05/30 20:04 Order name: Urinalysis w/ reflexes; Complete Time: 20:37 kb 05/30 20:04 Order name: Test, Urine; Complete Time: 20:39 kb 05/30 20:48 Order name: Throat Culture [facility] 05/30 20:04 Order name: Chest Single View XRAY; Complete Time: 22:19 kb Administered Medications: 22:47 Drug: Dexamethasone IM 10 mg IM once Route: IM; Site: right deltoid; vc1 22:47 Follow up: Response: No adverse reaction; Medication administered at discharge. vc1 Disposition Summary: 05/30/24 22:29 Discharge Ordered Notes: Location: Home kb Condition: Stable kb Diagnosis - Acute sinusitis, unspecified kb Followup: kb - With: Emergency Department - When: As needed - Reason: Worsening of condition Followup: kb - With: Private Physician - When: 2 - 3 days - Reason: Recheck today's complaints, Continuance of care, Re-evaluation by your physician Discharge Instructions: - Discharge Summary Sheet kb - Sinusitis, Adult, [id number] kb Forms: - Medication Reconciliation Form kb - Antibiotic Education kb - Prescription Opioid Use kb - Patient Portal Instructions kb - Leadership Thank You Letter kb - Work release form vc1 Signatures: Dispatcher [employer] EDMayuri Amaro FNP-C FNP-Ckb Doucette, Kyli, RN RN kd3 Dilia Mae RN RN vc1
--- NOTE | 2024-05-30 22:30 | ER ---
Nurse's Notes [facility] Name: Roula Conde Age: 43 yrs Sex: Female : 1980 Arrival Date: 05/30/2024 Time: 19:50 Bed 11 Private MD: Diagnosis: Acute sinusitis, unspecified Presentation: 05/30 20:02 Chief complaint: Patient states: I have been feeling sick since last Wednesday and i have kd3 been to the doctor and have been on steroids and antibiotics. They told me that i had some sinusitis. I have also had an albuterol inhaler. i started to feel better but then today i have just felt so bad. I have so much pain from the constant coughing and i feel like i have so much congestion in my chest. I spiked a fever again today of 100.6. Coronavirus screen: Vaccine status: Patient reports being unvaccinated. Ebola Screen: No symptoms or risks identified at this time. Initial Sepsis Screen: Does the patient meet any 2 criteria? No. Patient's initial sepsis screen is negative. Does the patient have a suspected source of infection? No. Patient's initial sepsis screen is negative. Risk Assessment: Do you want to hurt yourself or someone else? Patient reports no desire to harm self or others. Onset of symptoms was May 30, 2024. 20:02 Method Of Arrival: Ambulatory kd3 20:02 Acuity: [place] [place] 3 kd3 Triage Assessment: 20:06 General: Appears uncomfortable, Behavior is calm, cooperative. Pain: Complains of pain kd3 in chest and neck. Respiratory: Breath sounds are clear bilaterally. Historical: - Allergies: 20:06 Iodinated Contrast Media - IV Dye (Hives, swelling); kd3 - Immunization history:: Adult Immunizations up to date. - Infectious Disease History:: Denies. - Social history:: Smoking status: Patient/guardian denies using tobacco. Screenin:04 [facility] ED Fall Risk Assessment (Adult) History of falling in the last 3 months, kd3 including since admission No falls in past 3 months (0 pts) Confusion or Disorientation No (0 pts) Intoxicated or Sedated No (0 pts) Impaired Gait No (0 pts) Mobility Assist Device Used No (0 pt) Altered Elimination No (0 pt) Score/Fall Risk Level 0 - 2 = Low Risk Oriented to surroundings. Abuse screen: Denies threats or abuse. Denies injuries from another. Nutritional screening: No deficits noted. Tuberculosis screening: No symptoms or risk factors identified. Assessment: 21:04 General: Appears uncomfortable, Behavior is calm, cooperative. Neuro: Level of kd3 Consciousness is awake, alert, obeys commands, Oriented to person, place, time, situation. Cardiovascular: Patient's skin is warm and dry. Respiratory: Airway is patent Respiratory effort is even, unlabored, Respiratory pattern is regular, symmetrical. 21:05 General: Patient is still reporting symptoms of general malaise and ill felling with kd3 chest congestion. Client updated on plan of care. . Respiratory: Airway is patent Trachea midline Respiratory effort is even, unlabored, Respiratory pattern is regular, symmetrical. 22:48 Reassessment: No changes from previously documented assessment. Patient and/or family vc1 updated on plan of care and expected duration. Pain level reassessed. Patient is alert, oriented x 3, equal unlabored respirations, skin warm/dry/pink. Vital Signs: 20:02 Pulse 89; Resp 16; Temp 98.7(O); Pulse Ox 99% ; Weight 79.38 kg; Height 5 ft. 7 in. ; kd3 Pain 8/10; 20:07 BP 137 / 97; kd3 21:52 BP 151 / 90; Pulse 93; Resp 16; Temp 99.5(O); Pulse Ox 100% ; kd3 22:47 BP 132 / 84; Pulse 80; Resp 17; Pulse Ox 100% ; vc1 20:02 Body Mass Index 27.41 (79.38 kg, 170.18 cm) kd3 20:02 Pain Scale: Adult kd3 ED Course: 19:54 Patient arrived in ED. jj6 19:55 [facility]in [facility]C [facility] kb 19:55 Yanick Feliz MD is Attending Physician. kb 20:06 Triage completed. kd3 20:06 Arm band placed on right wrist. kd3 20:11 Radha Gill, AALIYAH is Primary Nurse. kd3 21:04 Chest Single View XRAY In Process Unspecified. EDMS 21:05 Patient has correct armband on for positive identification. Provided Education on: Er kd3 process . 22:47 No provider procedures requiring assistance completed. Patient did not have IV access vc1 during this emergency room visit. Administered Medications: :47 Drug: Dexamethasone IM 10 mg IM once Route: IM; Site: right deltoid; vc1 22:47 Follow up: Response: No adverse reaction; Medication administered at discharge. vc1 Medication: 21:04 VIS not applicable for this client. kd3 Outcome: 22:29 Discharge ordered by . fadia 22:49 Discharged to home ambulatory, vc1 22:49 Condition: good 22:49 Discharge instructions given to patient, Instructed on discharge instructions, follow up and referral plans. Demonstrated understanding of instructions, follow-up care, 23:02 Patient left the ED. vc1 Signatures: Dispatcher [employer] EDMS Mayuri Guerin, MACARENA CELAYA-Gayle Trivedi6 Radha Gill, RN RN kd3 Dilia Mae RN RN vc1
[2024-05-30] MEDS ORDERED: dexAMETHasone 10 MG/ML VIAL ONE (22:35)
[2024-05-31 05:55] VITALS: TEMP 99.5; O2SAT 100
[2024-05-31 05:56] VITALS: BP 132/84
== END 2024-05-30 23:02 | disposition home or self-care (01) ==
LOC: ER 19:50
DX: J01.90 Acute sinusitis, unspecified (principal); Z11.52 Encounter for screening for COVID-19
CPT/HCPCS: 87070; 36415; 81025; 87081; 81003; 87804 ×2; 71045; 87811; J1100; 96372; 99284